=== PATIENT | female | born 1945 | race Caucasian/White ===

== ENCOUNTER 2018-11-01 14:00 | Emergency (ER) | payer OTHER ==
[2018-11-01 14:05] VITALS: BP 105/60; PULSE 77; TEMP 98.3; BMI 29.2
[2018-11-01] MEDS ORDERED: KETOROLAC TROMETHAMINE 60 MG/2 ML VIAL IM ONE (15:21)
[2018-11-01] MEDS ORDERED: KETOROLAC TROMETHAMINE 30 MG/1 ML VIAL ONE (15:23)
--- NOTE | 2018-11-01 15:27 | PDOC ---
History of Present Illness - General Chief Complaint: Back Pain Stated Complaint: BACK PAIN Time Seen by Provider: 11/01/18 15:03 History Source: Patient Exam Limitations: No Limitations - History of Present Illness Initial Comments: 11/01/18 15:22 Patient came to emergency department with complaints of pain to upper left and right back for 1-1-1/2 weeks. Denies knowledge of heavy lifting or strenuous activity, denies any recent injury or accident, denies any fever, cough, upper respiratory issue. States pain is worse with movement and is unable to perform any of her daily activities including Hooking Bra this pain in her shoulder. And , no history of cardiac issue recently. 11/01/18 15:23 Severity: reports: mild, moderate Pain Location: reports: back, neck Associated Symptoms (Fall): denies symptoms, headache Past History - Travel Traveled outside of the country in the last 30 days: No Close contact w/someone who was outside of country & ill: No - Past Medical History Allergies/Adverse Reactions: Allergies Allergy/AdvReac Type Severity Reaction Status Date / Time Penicillins Allergy Intermediate Verified 05/07/15 14:07 Home Medications: Ambulatory Orders Albuterol Sulfate [Proair Hfa -] 1 inh PO BID 05/18/14 Atenolol [Tenormin -] 50 mg PO DAILY 05/18/14 Citalopram Hydrobromide [Celexa -] 30 mg PO DAILY 05/18/14 metFORMIN HCL [Glucophage -] 1,000 mg PO BID 08/11/14 Glipizide [Glipizide ER] 5 mg PO DAILY 05/06/15 Zolpidem Tartrate [Ambien -] 10 mg PO HS 05/06/15 Naproxen [Naprosyn -] 500 mg PO BID #30 tablet 11/01/18 Anemia: No Asthma: No Cancer: No Cardiac Disorders: No CVA: No COPD: No CHF: No Dementia: No Diabetes: Yes Dialysis: Yes (PRE) GI Disorders: No Disorders: No HTN: Yes Hypercholesterolemia: Yes Liver Disease: No Seizures: No Thyroid Disease: No - Surgical History Abdominal Surgery: No 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, pre cancerous tumor inside ap) Cardiac Surgery: No Cholecystectomy: No Lung Surgery: No Neurologic Surgery: No Orthopedic Surgery: No - Family Disease History Family Disease History: Diabetes: Mother, Heart Disease: Father - Immunization History Immunization Up to Date: Yes - Suicide/Smoking/Psychosocial Hx Smoking History: Never smoked Have you smoked in the past 12 months: No If you are a former smoker, when did you quit?: 26 yrs ago Hx Alcohol Use: No Drug/Substance Use Hx: No Substance Use Type: None Hx Substance Use Treatment: No Review of Systems - Review of Systems Able to Perform ROS?: Yes Is the patient limited Occitan proficient: Yes Constitutional: Yes: Symptoms Reported, See HPI, Malaise HEENTM: Yes: See HPI. No: Symptoms Reported Respiratory: Yes: See HPI. No: Symptoms reported, Cough, Shortness of Breath Cardiac (ROS): Yes: See HPI. No: Symptoms Reported, Chest Pain, Lightheadedness , Palpitations : No: Symptoms Reported Musculoskeletal: Yes: Symptoms Reported, See HPI, Back Pain, Muscle Pain, Neck Pain Neurological: No: Symptoms reported All Other Systems: Reviewed and Negative *Physical Exam - Vital Signs Last Vital Signs Temp Pulse Resp BP Pulse Ox 98.3 F 77 20 105/60 98 11/01/18 14:03 11/01/18 14:03 11/01/18 14:03 11/01/18 14:03 11/01/18 14:03 - Physical Exam General Appearance: Yes: Nourished, Appropriately Dressed HEENT: positive: SCOT, Normal ENT Inspection, TMs Normal, Pharynx Normal Neck: positive: Supple. negative: Tender Respiratory/Chest: positive: Lungs Clear (but very dim), Normal Breath Sounds, Other (pain to upper left and right back reproduced against resistance ). negative: Chest Tender, Accessory Muscle Use, Rhonchi, Wheezing Musculoskeletal: positive: Normal Inspection, Decreased Range of Motion (with pain reproduced with abduction and forward flexion). negative: Vertebral Tenderness Extremity: positive: Normal Capillary Refill, Normal Inspection, Tender. negative: Normal Range of Motion Integumentary: positive: Dry, Warm, Pale Neurologic: positive: corporate learning consultant II-XII NML intact, Fully Oriented, Alert, Normal Mood/ Affect, Normal Response, Motor Strength 5/5 Moderate Sedation - Procedure Monitoring Vital Signs: Procedure Monitoring Vital Signs Temperature 98.3 F 11/01/18 14:03 Pulse Rate 77 11/01/18 14:03 Respiratory Rate 20 11/01/18 14:03 Blood Pressure 105/60 11/01/18 14:03 O2 Sat by Pulse Oximetry (%) 98 11/01/18 14:03 Medical Decision Making - Medical Decision Making 11/01/18 16:05 Chest x-ray shows no focal in the right lower lobe approximate 2.[address] recommended and will obtain chest X CT to rule out mass versus pneumonia. Patient updated a plan, given Toradol 30 mg for pain with some relief 11/01/18 16:06 11/01/18 18:22 report of CAT scan reveals a 2 cm spiculated right lower lobe pulmonary nodule suspicious for primary neoplastic disease. Also an interval development of pulmonary nodule within the left lower lobe. These findings were reported to patient and her niece. States will follow-up with Dr. Jacinto's office next week for further evaluation and possible treatment. Given prescription for Naprosyn for back pain and encouraged to rest over the weekend. *DC/Admit/Observation/Transfer Diagnosis at time of Disposition: Back pain Qualifiers: Back pain location: thoracic back pain Chronicity: acute Back pain laterality: bilateral Qualified Code(s): M54.6 - Pain in thoracic spine - Discharge Dispostion Disposition: HOME Condition at time of disposition: Stable Decision to Admit order: No - Referrals Referrals: Gustavo Jacinto MD [Primary Care Provider] - - Patient Instructions Printed Discharge Instructions: DI for Thoracic Back Pain Additional Instructions: Call Dr. Jacinto's office on Sunday for evaluation of a CAT scan findings Heavy lifting and strenuous activity until pain resolves A use Naprosyn one 500 mg tablet every 12 hours for pain Return to emergency department for worsened pain, shortness of breath, chest pain or other worsening of symptoms - Post Discharge Activity Forms/Work/School Notes: Back to Work
== END 2018-11-01 18:25 | disposition home or self-care (01) ==
LOC: JERFT 14:00
PROC: 3E0233Z Introduction of Anti-inflammatory into Muscle, Percutaneous Approach (ICD-10-PCS; principal; 2018-11-01)
DX: M54.6 Pain in thoracic spine (principal); I10 Essential (primary) hypertension; E11.9 Type 2 diabetes mellitus without complications; Z79.84 Long term (current) use of oral hypoglycemic drugs; E78.00 Pure hypercholesterolemia, unspecified
CPT/HCPCS: 71046-TC-FY; 71250-TC; 99281-25

== ENCOUNTER 2018-11-24 20:23 | Inpatient (IN) | payer OTHER ==
--- NOTE | 2018-11-24 21:14 | PDOC ---
Attending Attestation - HPI HPI: 11/24/18 22:28 The patient is a 73 year old with a PMH of IBS, diabetes, hemodialysis, hypertension, dyslipidemia, thyroid disease, and depression presenting with confusion. As per the sister, the patient has been confusing the days recently. Patient's sister at bedside states she had been also complaining of low back pain. Unknown if patient has been taking her meds appropriately. Patient also had a recent fall and has bruising to her left elbow and right knee. The patient denies chest pain, shortness of breath, headache and dizziness. Denies fever, chills, nausea, vomit, diarrhea and constipation. Denies dysuria, frequency, urgency and hematuria. PCP: Gustavo Jacinto - Physicial Exam PE: 11/24/18 22:30 ADULT EXAM GENERAL: Awake, alert, and fully oriented, in no acute distress (+) Unkempt. HEAD: No signs of trauma EYES: PERRLA, EOMI, sclera anicteric, conjunctiva clear ENT: Auricles normal inspection, hearing grossly normal, nares patent, oropharynx clear without exudates. (+) Dry mucous membranes. NECK: Normal ROM, supple, no lymphadenopathy, JVD, or masses LUNGS: Breath sounds equal, clear to auscultation bilaterally. No wheezes, and no crackles HEART: Regular rate and rhythm, normal S1 and S2, no murmurs, rubs or gallops ABDOMEN: Soft, nontender, normoactive bowel sounds. No guarding, no rebound. No masses EXTREMITIES: (+) Large bruise to the left elbow. (+) Large bruise to the right knee. Moving all extremities. NEUROLOGICAL: Cranial nerves II through XII grossly intact. SKIN: Warm, Dry, normal turgor. <Mine Turk - Last Filed: 11/24/18 22:28> - Resident Resident Name: Jessica Redd - ED Attending Attestation I have performed the following: I have examined & evaluated the patient, The case was reviewed & discussed with the resident - Medical Decision Making 11/24/18 23:38 Pt has an elevated WBC count. Pt has worsening GFR; MARÍA; BUN Cr are elevated. 11/24/18 23:39 Pt is getting hydrated. 11/25/18 00:58 Patient Name: SULEIMAN HASKINS THIS IS A PRELIMINARY REPORT FROM IMAGING PHYSICIAN PRESIDENT DATE OF SERVICE: 2018-11-25 00:15:00 IMAGES: 171 EXAM: HEAD CT WITHOUT CONTRAST HISTORY: Rule out bleed COMPARISON: None. FINDINGS: The ventricular system is midline and nondilated. The sulcal pattern is normal for the patient's age. Mild small vessel ischemic changes are noted. There is no bleed, mass, extra-axial fluid collection or mass effect. No skull fracture or skull lesion is identified. Minimal air-fluid level in the left maxillary sinus could represent mild sinusitis. There is a right maxillary sinus retention cyst or polyp. The other paranasal sinuses and mastoid air cells are clear. IMPRESSION: No acute intracranial pathology. Possible mild sinusitis. 11/25/18 04:10 Pt will be admitted for AMS and for further evaluation and hydration <Suzanna Cheng - Last Filed: 11/25/18 04:11> Heart Score/ECG Review - ECG Intrepretation Rhythm: Regular Rhythm - [place]: Normal - P and SD Delta Wave(s) Present: No WPW: No - QRS Poor R Wave Progression: No Q Wave Present: No - ST and T Early Repolarization: No Non Specific ST-T Wave changes: No Flattened T Waves: No Prolonged Q-T Interval: No - ECG Impressions Normal ECG: Yes Non-specific ST Elevation: No Ischemic Changes: No Bradycardia: No Torsades tashia Pointes: No WPW: No <Suzanna Cheng - Last Filed: 11/25/18 04:11>
[2018-11-24] MEDS ORDERED: ACETAMINOPHEN 1000 MG/100 ML VIAL (NON FORMULARY) IVPB ONE (21:34)
--- NOTE | 2018-11-24 21:34 | PDOC ---
History of Present Illness - General Chief Complaint: Back Pain Stated Complaint: BACK PAIN/CONFUSION Time Seen by Provider: 11/24/18 21:05 - History of Present Illness Initial Comments: 11/24/18 21:29 73 year old w/ history of IBS, diabetes, hemodialysis, hypertension, dyslipidemia, thyroid disease, and depression presents with episode of confusion as heard over the phone by family approx 2 hours ago. Family went to go visit her and she improved w/ andrea rangel just prior to arrival. Patient was complaining of worsening lower back pain. Per family they did not see facial droop or unilateral weakness Family reports that they have noticed some episodes of confusion over the past week including not knowing the day, doctor's appointment or medications. Family is concerned that the patient is not taking medication properly. Patient started a new medication on Nov 01 but does not recall what it was. Patient denies headache, chest pain, shortness of breath, N/V/D/C abdominal pain , fever, neck pain or stiffness or difficulty walking. PCP: Gustavo Jacinto NIH Stroke Scale - Last Known Well Date/Time & Onset Date Last Known Well: 11/25/18 Time Last Known Well: 18:00 - Initial Evaluation Level of consciousness: Alert Ask patient the month and their age: Answers both correctly Ask patient to open & close eyes; make fist and let go: Obeys both correctly Best gaze (horizontal eye movement): Normal Visual field testing: No visual field loss Facial paresis (Show teeth/raise eyebrows/close eyes tight): Normal symmetrical movement Motor Function: Left Arm: Normal Motor Function: Right Arm: Normal (extends arm 90 (or 45) degrees for 10 seconds without drift Motor Function: Left Leg: Normal (extends leg 30 degrees for 5 seconds without drift) Motor Function: Right Leg: Normal (extends leg 30 degrees for 5 seconds without drift) Limb Ataxia: No ataxia Sensory(Use pinprick test arms,legs,trunk,face/side to side): Normal Best language (Describe picture, name items, read sentences): No Aphasia Dysarthria (read several words): Normal articulation Extinction and Inattention: No abnormality - Total Score NIH Stroke Scale Score: 0 Past History - Past Medical History Allergies/Adverse Reactions: Allergies Allergy/AdvReac Type Severity Reaction Status Date / Time Penicillins Allergy Intermediate Verified 11/24/18 20:58 Home Medications: Ambulatory Orders Albuterol Sulfate [Proair Hfa -] 1 inh PO BID 05/18/14 Atenolol [Tenormin -] 50 mg PO DAILY 05/18/14 Citalopram Hydrobromide [Celexa -] 30 mg PO DAILY 05/18/14 metFORMIN HCL [Glucophage -] 1,000 mg PO BID 08/11/14 Glipizide [Glipizide ER] 5 mg PO DAILY 05/06/15 Zolpidem Tartrate [Ambien -] 10 mg PO HS 05/06/15 Naproxen [Naprosyn -] 500 mg PO BID #30 tablet 11/01/18 Anemia: No Asthma: No Cancer: No Cardiac Disorders: No CVA: No COPD: No CHF: No Dementia: No Diabetes: Yes Dialysis: Yes (PRE) GI Disorders: No Disorders: No HTN: Yes Hypercholesterolemia: Yes Liver Disease: No Seizures: No Thyroid Disease: No - Surgical History Abdominal Surgery: No 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, pre cancerous tumor inside ap) Cardiac Surgery: No Cholecystectomy: No Lung Surgery: No Neurologic Surgery: No Orthopedic Surgery: No - Family Disease History Family Disease History: Diabetes: Mother, Heart Disease: Father - Immunization History Immunization Up to Date: Yes - Suicide/Smoking/Psychosocial Hx Smoking History: Never smoked Have you smoked in the past 12 months: No If you are a former smoker, when did you quit?: 26 yrs ago Information on smoking cessation initiated: No Hx Alcohol Use: No Drug/Substance Use Hx: No Substance Use Type: None Hx Substance Use Treatment: No *Physical Exam - Vital Signs Last Vital Signs Temp Pulse Resp BP Pulse Ox 97.9 F 80 18 96/53 L 98 11/24/18 20:47 11/24/18 20:47 11/24/18 20:47 11/24/18 20:47 11/24/18 20:47 - Physical Exam Comments: 11/24/18 21:32 unremarkable exam msk - w/o deficit no spinal tenderness to palption Moderate Sedation - Procedure Monitoring Vital Signs: Procedure Monitoring Vital Signs Temperature 97.9 F 11/24/18 20:47 Pulse Rate 80 11/24/18 20:47 Respiratory Rate 18 11/24/18 20:47 Blood Pressure 96/53 L 11/24/18 20:47 O2 Sat by Pulse Oximetry (%) 98 11/24/18 20:47 ED Treatment Course - LABORATORY CBC & Chemistry Diagram: 11/24/18 22:15 11/24/18 22:15 - RADIOLOGY Radiology Studies Ordered: Category Date Time Status HEAD CT WITHOUT CONTRAST [CT] Stat CT Scan 11/24/18 21:23 Ordered CHEST X-RAY PORTABLE* [RAD] Stat Radiology 11/24/18 21:23 Ordered Medical Decision Making - Medical Decision Making 11/24/18 21:33 ED Course: consider polypharmacy vs diabetic shock vs uti vs pna vs intracranial bleed vs acs/arrythmia cbc, cmp, ua, ucx, cxr, head ct, fingerstick glucose in 200s EKG: normal sinus rhythm HR 82, no interval abnormalities, narrow QRS, ST and T wave segments and morphology normal. 11/24/18 23:15 wbc: 14 w/ left shift CXR: midline airway, mildly increased vascular markings at the bases bilaterally , no blunting of costophrenic angle, no cardiomegaly, as read by this clinical writer and attending. 11/25/18 00:[address] unremarkable patient w/ kevin Patient will need social work involvement in case, as patient clearly is unable to manage medications at home. Pending admission, further work up and evaluation *DC/Admit/Observation/Transfer Diagnosis at time of Disposition: Leukocytosis, Back pain, KEVIN (acute kidney injury) - Discharge Dispostion Condition at time of disposition: Stable Decision to Admit order: Yes - Referrals - Patient Instructions - Post Discharge Activity
[2018-11-24] MEDS ORDERED: SODIUM CHLORIDE 0.9% 500 ML INFUS.BAG IV ONE (21:52)
--- NOTE | 2018-11-24 21:52 | PDOC ---
Attending Attestation - Resident Resident Name: Jessica Redd - ED Attending Attestation I have performed the following: I have examined & evaluated the patient, The case was reviewed & discussed with the resident, I agree w/resident's findings & plan
[2018-11-24 22:26] LABS: BASO % 0.5 % (0-2.0); HEMATOCRIT 32.7 % (32.4-45.2); HEMOGLOBIN 10.6 GM/dL (10.7-15.3); MCH 23.8 pg (25.7-33.7); MCHC 32.4 g/dl (32.0-36.0); MEAN CELL VOLUME 73.5 fl (80-96); MEAN PLT VOLUME 8.4 fl (7.5-11.1); MONO % 6.9 % (3.8-10.2); NEUT % 83.6 % (42.8-82.8); PLATELET COUNT 296 K/MM3 (134-434); RBC 4.45 M/mm3 (3.60-5.2); RDW 19.9 % (11.6-15.6); WHITE BLOOD COUNT 14.1 K/mm3 (4.0-10.0)
[2018-11-24] MEDS ORDERED: ACETAMINOPHEN INJECTION 100 ML IVPB ONE (22:26)
[2018-11-24 23:16] LABS: ALBUMIN 3.3 g/dl (3.4-5.0); ALK PHOS 173 U/L (45-117); ANION GAP 13 MMOL/L (8-16); BILIRUBIN,TOTAL 0.8 mg/dL (0.2-1); BLOOD UREA NITROGEN 45 mg/dL (7-18); CALCIUM 10.1 mg/dL (8.5-10.1); CHLORIDE 105 mmol/L (98-107); CO2 19 mmol/L (21-32); CREATININE 2.1 mg/dL (0.55-1.3); GLUCOSE,RANDOM 274 mg/dL (74-106); POTASSIUM 5.1 mmol/L (3.5-5.1); SGOT/AST 38 U/L (15-37); SGPT/ALT 15 U/L (13-61); SODIUM 137 mmol/L (136-145); TOT PROT 7.1 g/dl (6.4-8.2)
[2018-11-24 23:59] LABS: URINE APPEARANCE CLEAR; URINE BILIRUBIN NEGATIVE (<2.0 mg/dL); URINE COLOR YELLOW; URINE GLUCOSE (UA) NEGATIVE (NEGATIVE); URINE KETONE NEGATIVE (NEGATIVE); URINE LEUK ESTERASE NEGATIVE (NEGATIVE); URINE NITRITE NEGATIVE (NEGATIVE); URINE PROTEIN 1+ (NEGATIVE); URINE UROBILINOGEN NEGATIVE mg/dL (0.2-1.0)
[2018-11-25 00:04] LABS: URINE BACTERIA RARE /hpf (NONE SEEN); URINE MUCUS RARE
[2018-11-25] MEDS ORDERED: SODIUM CHLORIDE 1,000 ML IV SCH ×2 (01:00→03:00)
--- NOTE | 2018-11-25 02:37 | HP ---
CHIEF COMPLAINT: altered mental status PCP: [facility] HISTORY OF PRESENT ILLNESS: 73yo woman dropped off at hospital by family members for confusion for past several days. Patient is a poor historian she only complains of chronic back pain. She appears disheveled and is unsure why she in hospital. No focal neuro deficits with reported. ER course was notable for: (1) head ct (2) iv fluid (3) Recent Travel: none reported PAST MEDICAL HISTORY: Appendiceal Carcinoma/Abscess Formation DM HTN PAST SURGICAL HISTORY: s/p ex-lap/right hemicolectomy/abscess drainage Social History: Smoking: no Alcohol: no Drugs: no Family History: none mentioned Allergies Penicillins Allergy (Intermediate, Verified 11/24/18 20:58) ""PAIN IN MY BODY, my body went off" HOME MEDICATIONS: Home Medications Medication Instructions Recorded Albuterol Sulfate [Proair Hfa -] 1 inh PO BID 05/18/14 Atenolol [Tenormin -] 50 mg PO DAILY 05/18/14 Citalopram Hydrobromide [Celexa -] 30 mg PO DAILY 05/18/14 metFORMIN HCL [Glucophage -] 1,000 mg PO BID 08/11/14 Glipizide [Glipizide ER] 5 mg PO DAILY 05/06/15 Zolpidem Tartrate [Ambien -] 10 mg PO HS 05/06/15 Naproxen [Naprosyn -] 500 mg PO BID #30 tablet 11/01/18 REVIEW OF SYSTEMS CONSTITUTIONAL: Absent: fever, chills, diaphoresis, generalized weakness, malaise, loss of appetite, weight change HEENT: Absent: rhinorrhea, nasal congestion, throat pain, throat swelling, difficulty swallowing, mouth swelling, ear pain, eye pain, visual changes CARDIOVASCULAR: Absent: chest pain, syncope, palpitations, irregular heart rate, lightheadedness , peripheral edema RESPIRATORY: Absent: cough, shortness of breath, dyspnea with exertion, orthopnea, wheezing, stridor, hemoptysis GASTROINTESTINAL: Absent: abdominal pain, abdominal distension, nausea, vomiting, diarrhea, constipation, melena, hematochezia GENITOURINARY: Absent: dysuria, frequency, urgency, hesitancy, hematuria, flank pain, genital pain MUSCULOSKELETAL: Absent: myalgia, arthralgia, joint swelling, neck pain present- back pain, SKIN: Absent: itching, pallor present- rash, HEMATOLOGIC/IMMUNOLOGIC: Absent: easy bleeding, easy bruising, lymphadenopathy, frequent infections ENDOCRINE: Absent: unexplained weight gain, unexplained weight loss, heat intolerance, cold intolerance NEUROLOGIC: Absent: headache, focal weakness or paresthesias, dizziness, unsteady gait, seizure, mental status changes, bladder or bowel incontinence PSYCHIATRIC: Absent: anxiety, depression, suicidal or homicidal ideation, hallucinations. PHYSICAL EXAMINATION Vital Signs - 24 hr 11/24/18 20:47 Temperature 97.9 F Pulse Rate 80 Respiratory 18 Rate Blood Pressure 96/53 L O2 Sat by Pulse 98 Oximetry (%) GENERAL: oriented to person, place, disoriented to time , disheveled HEAD: Normal with no signs of trauma. EYES: Pupils equal, round and reactive to light, extraocular movements intact, sclera anicteric, conjunctiva clear. No lid lag. EARS, NOSE, THROAT: Ears normal, nares patent, oropharynx clear without exudates. dry mucous membranes. NECK: Normal range of motion, supple without lymphadenopathy, JVD, or masses. LUNGS: Breath sounds equal, clear to auscultation bilaterally. No wheezes, and no crackles. No accessory muscle use. HEART: Regular rate and rhythm, normal S1 and S2 without murmur, rub or gallop. ABDOMEN: large midline abd scar, bs+, soft, nt MUSCULOSKELETAL: Normal range of motion at all joints. No bony deformities or tenderness. No CVA tenderness. UPPER EXTREMITIES: erythema on elbows b/l LOWER EXTREMITIES: erythema on knees NEUROLOGICAL: Cranial nerves II-XII intact. Normal speech PSYCHIATRIC: Cooperative. Good eye contact. Appropriate mood and affect. SKIN: knees and elbows b/l with abrasions vs cellulitis Laboratory Results - last 24 hr 11/24/18 11/24/18 11/24/18 22:15 22:15 23:40 WBC 14.1 H RBC 4.45 Hgb 10.6 L Hct 32.7 MCV 73.5 L MCH 23.8 L MCHC 32.4 RDW 19.9 H Plt Count 296 MPV 8.4 Absolute Neuts (auto) 11.8 H Neutrophils % 83.6 H D Lymphocytes % 9.0 D Monocytes % 6.9 Eosinophils % 0.0 D Basophils % 0.5 Nucleated RBC % 0 Sodium 137 Potassium 5.1 Chloride 105 Carbon Dioxide 19 L Anion Gap 13 BUN 45 H Creatinine 2.1 H Creat Clearance w eGFR 23.15 Random Glucose 274 H Calcium 10.1 Total Bilirubin 0.8 AST 38 H ALT 15 Alkaline Phosphatase 173 H Total Protein 7.1 Albumin 3.3 L TSH 1.13 Urine Color Yellow Urine Appearance Clear Urine pH 5.0 Ur Specific [place] 1.017 Urine Protein 1+ H Urine Glucose (UA) Negative Urine Ketones Negative Urine Blood 2+ H Urine Nitrite Negative Urine Bilirubin Negative Urine Urobilinogen Negative Ur Leukocyte Esterase Negative Urine WBC (Auto) 10 Urine RBC (Auto) 54 Urine Bacteria Rare Urine Mucus Rare imaging reviewed ASSESSMENT/PLAN: #Altered mental status -patient disheveled, uncertain etiology, differential may include uremia secondary to kevin, polypharmacy, possible hypoglycemia episodes? (patient is on glipizide). CT scan of head negative but MRI would be more sensitive to pick u any intracranial insults. May also be metabolic encephalopathy in setting of possible cellulitis of elbows and knees. -observation -tsh -vit b12 level -rpr -brain mri -neuro eval -bed rest -fall precuations -hold sedatives- zolpidem #Possible cellulitis vs abrasion of elbows and knees b/l. With presence of leukocytosis will treat for possible cellulitis -blood cultures -esr, crp -levofloaxin -vancomcyin -ID consult #KEVIN -iv fluid hydration -avoid nephrotoxins #DM -novolog sliding scale -diabetic diet #DVT ppx -heparin sc Visit type - Emergency Visit Emergency Visit: Yes Care time: The patient presented to the Emergency Department on the above date and was hospitalized for further evaluation of their emergent condition. - New Patient This patient is new to me today: Yes Date on this admission: 11/25/18 - Critical Care Critical Care patient: No
--- NOTE | 2018-11-25 02:37 | DS ---
Physical Exam: SUBJECTIVE: Patient seen and examined OBJECTIVE: Vital Signs Period Temp Pulse Resp BP Sys/Barrera Pulse Ox Last 24 Hr 97.9 F 80 18 96/53 98 PHYSICAL EXAM GENERAL: The patient is awake, alert, and fully oriented, in no acute distress. HEAD: Normal with no signs of trauma. EYES: PERRL, extraocular movements intact, sclera anicteric, conjunctiva clear. ENT: Ears normal, nares patent, oropharynx clear without exudates, moist mucous membranes. NECK: Trachea midline, full range of motion, supple. LUNGS: Breath sounds equal, clear to auscultation bilaterally, no wheezes, no crackles, no accessory muscle use. HEART: Regular rate and rhythm, S1, S2 without murmur, rub or gallop. ABDOMEN: Soft, nontender, nondistended, normoactive bowel sounds, no guarding, no rebound, no hepatosplenomegaly, no masses. EXTREMITIES: 2+ pulses, warm, well-perfused, no edema. NEUROLOGICAL: Cranial nerves II through XII grossly intact. Normal speech, gait not observed. PSYCH: Normal mood, normal affect. SKIN: Warm, dry, normal turgor, no rashes or lesions noted. LABS Laboratory Results - last 24 hr 11/24/18 11/24/18 11/24/18 22:15 22:15 23:40 WBC 14.1 H RBC 4.45 Hgb 10.6 L Hct 32.7 MCV 73.5 L MCH 23.8 L MCHC 32.4 RDW 19.9 H Plt Count 296 MPV 8.4 Absolute Neuts (auto) 11.8 H Neutrophils % 83.6 H D Lymphocytes % 9.0 D Monocytes % 6.9 Eosinophils % 0.0 D Basophils % 0.5 Nucleated RBC % 0 Sodium 137 Potassium 5.1 Chloride 105 Carbon Dioxide 19 L Anion Gap 13 BUN 45 H Creatinine 2.1 H Creat Clearance w eGFR 23.15 Random Glucose 274 H Calcium 10.1 Total Bilirubin 0.8 AST 38 H ALT 15 Alkaline Phosphatase 173 H Total Protein 7.1 Albumin 3.3 L TSH 1.13 Urine Color Yellow Urine Appearance Clear Urine pH 5.0 Ur Specific [place] 1.017 Urine Protein 1+ H Urine Glucose (UA) Negative Urine Ketones Negative Urine Blood 2+ H Urine Nitrite Negative Urine Bilirubin Negative Urine Urobilinogen Negative Ur Leukocyte Esterase Negative Urine WBC (Auto) 10 Urine RBC (Auto) 54 Urine Bacteria Rare Urine Mucus Rare HOSPITAL COURSE: Date of Admission:11/24/18 Date of Discharge: 11/25/18 Discharge Summary Reason For Visit: BACK PAIN/CONFUSION Current Active Problems MARÍA (acute kidney injury) (Acute) Back pain (Acute) Leukocytosis (Acute) Condition: Stable - Instructions - Home Medications Comprehensive Discharge Medication List: Ambulatory Orders Albuterol Sulfate [Proair Hfa -] 1 inh PO BID 05/18/14 Atenolol [Tenormin -] 50 mg PO DAILY 05/18/14 Citalopram Hydrobromide [Celexa -] 30 mg PO DAILY 05/18/14 metFORMIN HCL [Glucophage -] 1,000 mg PO BID 08/11/14 Glipizide [Glipizide ER] 5 mg PO DAILY 05/06/15 Zolpidem Tartrate [Ambien -] 10 mg PO HS 05/06/15 Naproxen [Naprosyn -] 500 mg PO BID #30 tablet 11/01/18
[2018-11-25] MEDS ORDERED: VANCOMYCIN 1 GM PREMIX - 1 GM/200 ML BAG IVPB ONE (02:55)
[2018-11-25] MEDS ORDERED: VANCOMYCIN 1 GRAM (PRE-DOCKED) 1,000 MG/250 ML BAG IVPB ONE (05:24)
[2018-11-25] MEDS ORDERED: INSULIN (NOVOLOG) ASPART 100 UNITS/ML 10ML VIAL ONE (06:38)
--- NOTE | 2018-11-25 09:49 | EKG ---
Test Reason : Blood Pressure : / mmHG Vent. Rate : 082 BPM Atrial Rate : 082 BPM P-R Int : 154 ms QRS Dur : 072 ms QT Int : 356 ms P-R-T Axes : 083 078 062 degrees QTc Int : 415 ms NORMAL SINUS RHYTHM NORMAL ECG WHEN COMPARED WITH ECG OF 18-MAY-2014 10:31, NO SIGNIFICANT CHANGE WAS FOUND Confirmed by JAYSON GOODMAN MD ([id number]) on 11/25/2018 9:48:48 AM Referred By: Confirmed By:JAYSON GOODMAN MD
[2018-11-25] MEDS: INSULIN SLIDING SCALE (NOVOLOG) 1 VIAL SQ SCH ×4 (10:03→22:37)
[2018-11-25] MEDS ORDERED: ATENOLOL 25 MG TABLET (FP) ONE (11:22)
[2018-11-25] MEDS ORDERED: HEPARIN NA (PORCINE) 5,000 UNITS/ML 1ML VIAL ONE (11:23)
[2018-11-25] MEDS: HEPARIN NA (PORCINE) 5,000 UNITS/ML 1ML VIAL SQ SCH ×2 (11:29→22:35)
[2018-11-25] MEDS: ATENOLOL 50 MG TABLET (FP) PO SCH (11:30)
--- NOTE | 2018-11-25 12:28 | PN ---
Progress Note (short form) - Note Progress Note: pt seen/examined in er . chart reviewed events noted pt alert/ awake- not confused baseline-- c/c - back pain afebrile denies cp/ sob / abd pain Vital Signs Temp 97.7 F 11/25/18 09:28 Pulse 68 11/25/18 09:28 Resp 18 11/25/18 09:28 BP 112/88 11/25/18 09:28 Pulse Ox 98 11/25/18 09:56 Intake & Output 11/24/18 11/25/18 11/25/18 23:59 11:59 23:59 Output Total 1100 Balance -1100 Weight 150 lb Output: Urine 1100 Mcneil 1100 Other: Voiding Method Indwelling Catheter Indwelling Catheter Height 5 ft 1 in Body Mass Index (BMI) 28.3 Weight Measurement Method Standing Scale Active Medications Atenolol (Tenormin -) 50 mg PO DAILY [facility] Last Admin: 11/25/18 11:30 Dose: 50 mg Heparin Sodium (Porcine) (Heparin -) 5,000 unit SQ BID NICHOLAS Last Admin: 11/25/18 11:29 Dose: 5,000 unit Levofloxacin (Levaquin 250 Mg Premixed Ivpb -) 250 mg in 50 mls @ 50 mls/hr IVPB DAILY NICHOLAS; Protocol Sodium Chloride (Normal Saline -) 1,000 mls @ 100 mls/hr IV ASDIR NICHOLAS Insulin Aspart (Novolog Vial Sliding Scale -) 1 vial SQ ACHS NICHOLAS; Protocol Last Admin: 11/25/18 12:00 Dose: Not Given Tramadol HCl (Ultram -) 50 mg PO Q8H PRN PRN Reason: PAIN LEVEL 6-10 CBC, BMP 11/24/18 22:15 11/24/18 22:15 u/c - pending. ct chest-- Lung mass Am Physical Exam. Awake/ comfortable. No distress. heent- no jvd. thyroid not enlarged. lungs- clear cvs- s1, s2 rrr abd- soft/ obese. non tender. bs + ext- no edema neuro- aox3 mcneil + A/P Ams -- resolved Acute renal failure-- fluids/ avoid nsaids/ avoid hypotension. lung mass-- Discussed in detail with Dr. Roche-- Ct scan reviewed with him-- will follow uti ?- continue abx monitor labs back pain --will order x ray Ultram for pain will follow discussed with nursing staff also Problem List - Problems (1) Lung mass Code(s): R91.8 - OTHER NONSPECIFIC ABNORMAL FINDING OF LUNG FIELD (2) Toxic metabolic encephalopathy Code(s): G92 - TOXIC ENCEPHALOPATHY (3) MARÍA (acute kidney injury) Code(s): N17.9 - ACUTE KIDNEY FAILURE, UNSPECIFIED (4) Back pain Code(s): M54.9 - DORSALGIA, UNSPECIFIED (5) Leukocytosis Code(s): D72.829 - ELEVATED WHITE BLOOD CELL COUNT, UNSPECIFIED
[2018-11-25] MEDS: SODIUM CHLORIDE 1,000 ML IV SCH (13:08)
[2018-11-25] MEDS ORDERED: traMADol HCL 50 MG TABLET ONE ×2 (13:09→17:49)
[2018-11-25] MEDS: traMADol HCL 50 MG TABLET PO PRN ×2 (13:10→22:39)
--- NOTE | 2018-11-25 15:19 | CON.PULM ---
Consult Consult Specialty:: PULMONARY Referred by:: Dr. Jacinto Reason for Consultation:: lung nodule - History of Present Illness Chief Complaint: altered mental status History of Present Illness: 73yo female with h/o HTN, DM, appendiceal carcinoma who was admitted with altered mental status x 3 days. Found to have a possible UTI and acute renal failure, started on antibiotics and IVF with improvement in mentation. Of note, she was being worked up as outpt for a 2cm RLL lung nodule. She denies any shortness of breath or chest pain. She has been experiencing a nonproductive cough per family at bedside. No fevers, chills or sweats. Denies unintentional weight loss. She is a remote smoker, started at age 19, smoked as much as 2 PPD until she quit 20 years ago. Denies family history of malignancies. - History Source History Provided By: Patient, Family Member Limitations to Obtaining History: Clinical Condition - Past Medical History Cardio/Vascular: Yes: HTN Psych: Yes: Anxiety Endocrine: Yes: Diabetes Mellitus - Alcohol/Substance Use Hx Alcohol Use: No - Smoking History Smoking history: Never smoked Have you smoked in the past 12 months: No If you are a former smoker, when did you quit?: 26 yrs ago Home Medications - Allergies Allergies/Adverse Reactions: Allergies Allergy/AdvReac Type Severity Reaction Status Date / Time Penicillins Allergy Intermediate Verified 11/24/18 20:58 - Home Medications Home Medications: Ambulatory Orders Albuterol Sulfate [Proair Hfa -] 1 inh PO BID 05/18/14 Atenolol [Tenormin -] 50 mg PO DAILY 05/18/14 Citalopram Hydrobromide [Celexa -] 30 mg PO DAILY 05/18/14 metFORMIN HCL [Glucophage -] 1,000 mg PO BID 08/11/14 Glipizide [Glipizide ER] 5 mg PO DAILY 05/06/15 Zolpidem Tartrate [Ambien -] 10 mg PO HS 05/06/15 Naproxen [Naprosyn -] 500 mg PO BID #30 tablet 11/01/18 Review of Systems - Review of Systems Constitutional: denies: Chills, Fever, Unintentional Wgt. Loss Eyes: denies: Recent Change in Vision HENT: denies: Nasal Congestion, Throat Pain Neck: denies: Stiffness, Tenderness Cardiovascular: denies: Chest Pain, Shortness of Breath Respiratory: reports: Cough Gastrointestinal: denies: Abdominal Pain, Nausea, Vomiting Genitourinary: denies: Dysuria, Hematuria Neurological: denies: Dizziness, Headache Endocrine: denies: Unexplained Weight Loss Physical Exam Vital Sings: Vital Signs Temperature 97.7 F 11/25/18 09:28 Pulse Rate 68 11/25/18 09:28 Respiratory Rate 18 11/25/18 09:28 Blood Pressure 112/88 11/25/18 09:28 O2 Sat by Pulse Oximetry (%) 98 11/25/18 09:56 Constitutional: Yes: Calm Eyes: Yes: Conjunctiva Clear, EOM Intact HENT: Yes: Atraumatic, Normocephalic Neck: Yes: Supple, Trachea Midline Cardiovascular: Yes: Regular Rate and Rhythm Respiratory: Yes: Diminished (decreased breath sounds at the bases) ...Clubbing: No Gastrointestinal: Yes: Soft. No: Tenderness Edema: No Labs: CBC, BMP 11/24/18 22:15 11/24/18 22:15 Imaging - Results Cat Scan: Report Reviewed, Image Reviewed (RLL nodule) Assessment/Plan Altered Mental Status improving UTI Acute Kidney Injury Lung Nodule suspicious for malignancy HTN DM - IV antibiotics - f/u cultures - IVF - monitor urine output, creatinine - will need CT guided needle biopsy when stable - DVT prophylaxis Thank you for this consult Cayetano Roche MD
[2018-11-25] MEDS ORDERED: traMADol HCL 50 MG TABLET PO ONE (17:45)
--- NOTE | 2018-11-25 18:35 | PN ---
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 but stopped two weeks before michelle and hasn't been back she came to the ER 11/01 for back pain and was found to have a lung mass her sister went to her house and found it was a mess, dirty with dishes in the sink , water on the floor and pills scattered everywher she is now alert but still very vague about her complaints which include back pain no fevers elevated wbc, elevated creatinine unknown penicillin allergy suggest possible uti continue levaquin for now, can d/c if cultures negative maría renal/bladder sonogram IVF check cpk back pain consider imaging of her back lung mass- will need biopsy Problem List - Problems (1) Leukocytosis Code(s): D72.829 - ELEVATED WHITE BLOOD CELL COUNT, UNSPECIFIED (2) MARÍA (acute kidney injury) Code(s): N17.9 - ACUTE KIDNEY FAILURE, UNSPECIFIED (3) Back pain Code(s): M54.9 - DORSALGIA, UNSPECIFIED (4) Lung mass Code(s): R91.8 - OTHER NONSPECIFIC ABNORMAL FINDING OF LUNG FIELD (5) Penicillin allergy Code(s): Z88.0 - ALLERGY STATUS TO PENICILLIN
--- NOTE | 2018-11-25 19:16 | CONS ---
INFECTIOUS DISEASE CONSULTATION DATE OF CONSULTATION: 11/25/2018 REQUESTING PHYSICIAN: Gustavo Jacinto MD This is a 73-year-old woman admitted from her apartment. She lives in a senior building. She lives alone, with leukocytosis, confusion, and dehydration. She was brought to the ER by her sister who felt her texts were getting confusing. The patient reports back pain for the last several weeks. It started before Miley. 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 She came to the ER on the for back pain and was found to have a lung mass. She had not yet had any followup for the lung mass and when her sister was attempting to communicate to her about this, she felt that she was very confused and came to see her from [place]. When she arrived, she found the apartment was a mess. It was dirty with dishes in the sink that were unwashed, water on the floor, and pills scattered everywhere. She came to the emergency room and was evaluated. She was noted to have bruises on her elbows and knees. She is now alert but still very vague about her complaints which include back pain. She is oriented to person, place, and year. She has no fevers. She is noted to have elevated white count and an elevated creatinine. PAST MEDICAL HISTORY: Noted for history of hypertension, anxiety, and diabetes. She has a history as well of abdominal surgery. 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 Her sister found bottles at home that included naproxen, aspirin, Flexeril, and Ambien as well as Mobic. She did not find any metformin in the house, which is what she thought her sister was taking for her diabetes. ALLERGIES: She is allergic to PENICILLIN. The nature of the allergy is not known. SOCIAL HISTORY: She lives alone in an adult apartment. She is single. She has a pet cat. There is no history of any recent travel. She is a former smoker. REVIEW OF SYSTEMS: She denies anything except the back pain. She denies dysuria, diarrhea, nausea, vomiting, or cough. Her sister is not sure if she has eaten recently. PHYSICAL EXAMINATION: Vital Signs: She is afebrile, temperature is 98.3; pulse of 67; blood pressure 148/61. Respiratory rate is 18. She is saturating 97% on room air. HEENT: She is normocephalic. Her eyes are anicteric. She has dry oral mucosa. Neck: Supple. There are no meningeal signs. Lungs: Clear to auscultation. Heart: Regular rate and rhythm. Abdomen: Soft, nontender. She has a well-healed abdominal scar from her surgery, midline. Extremities: Without edema. Skin: She has bruises on both her knees as well as both her elbows. LABORATORY DATA: Her labs are notable for a white count of 14.1, hemoglobin 10.6, platelets of 296. Her BUN is 45 and creatinine 2.1, with alkaline phosphatase of 173. Urinalysis has 10 white cells, and urine and blood cultures are pending. She had a CT and a MRI of her brain that are normal. Lumbosacral films have been ordered and are pending. She had a chest x-ray done in the ER, that was unremarkable, but a recent CAT scan that revealed a right lung base mass. In summary, this is a 73-year-old woman admitted with leukocytosis, acute kidney injury, possible UTI. Would suggest continue Levaquin for now, can stop if cultures are negative. Renal/bladder sonogram, IV fluids. Consider imaging of her back, which has been ordered, and regarding her lung mass, she will need further biopsy. I spoke at length with her sister and [id number] who are at the bedside. JAMIE BEARDEN M.D. [id number]
--- NOTE | 2018-11-25 20:54 | CONSULT ---
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 Her sister checks in on her. She [facility] [employer] until about 3 weeks ago. 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 Meds at home may have included: Albuterol, atenolol, metformin, glypizide, citalopram and tramadol for pain. Pt notes 2-3 mos of progressive pain, shaking and deterioration of gait. The pain is in the torso and arms, "moves around" and interrupts sleep. She also complains of upper back pain that radiates sharply into the right scapula. Now admitted after at least a few days of increasing confusing and failure to thrive. Her sister found pt and her apartment extremely unkempt. On admission had WBC=14.1 K and urinary WBC=10. Given vancomicin. Now on levaquin. Gwz=155 mg%. Cr/BUN=2.1/45. CXRay- R LL mass CT of head (reviewed): Moderate atrophy. MRI of Brain (reviewed): Atrophy. Right basal ganglia lacune. Diffuse subcortical and periventricular microvascular changes. ARJUN: Obese. Unkempt. Ecchymoses over both knees and elbows. + Thoracic palpation tenderness. NEURO: Mod OMS. O x [facility]. Nov, 2018. David. Recalls 1 of 3 at 3 mins. + Glabella. Fluent speech. Circumlocution. CN II-XII: Full zimmerman and EOM's. Rhythmic jaw tremor. No facial Gag OK Motor: No drift. + Rest tremor Left hand and foot. Normal strength. + Cogwheel rigidity. Normal reflexes except absent AJ's. Plantars silent. Coord: No FTN dystaxia. Sensory: Sl decreased vib in toes. Gait: Shuffling, festinating. IMP: 1. Mild-moderate, B/L cerebral dysfunction (OMS). 2. Parkinsonism, probably Parkinson's disease. 3. R/O Thoracic spine pathology- possibly metastasis or vertebral collapse. 4. 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 Worsening due to Toxic-metabolic encephaloapthy (consider infection, hypothyroidism/myxedema). SUGGEST: Continue antibiotics and hydration Check B12, TSH, RPR, ESR, CRP Thoracic X Rays/ bone scan Give parenteral thiamine (250 mg IVPB TID x 3 days) D/C tramadol. Try pramipexole 0.25 mg BID after breakfast and dinner. Mobilize OOBed to chair for meals and bedside PT. Thank you very much, Chance Roman MD
[2018-11-25] MEDS: THIAMINE HCL 200 MG/2 ML VIAL IVPB SCH (22:38)
[2018-11-25] MEDS: PRAMIPEXOLE DIHYDROCHLORIDE 0.25 MG TABLET PO SCH (22:38)
[2018-11-26 01:23] VITALS: BMI 29.6
[2018-11-26] MEDS: SODIUM CHLORIDE 1,000 ML IV SCH ×2 (05:45→18:52)
[2018-11-26] MEDS: THIAMINE HCL 200 MG/2 ML VIAL IVPB SCH ×3 (05:45→21:41)
[2018-11-26] MEDS: INSULIN SLIDING SCALE (NOVOLOG) 1 VIAL SQ SCH ×4 (06:44→21:40)
[2018-11-26] MEDS: PRAMIPEXOLE DIHYDROCHLORIDE 0.25 MG TABLET PO SCH ×3 (06:44→21:41)
[2018-11-26] MEDS: traMADol HCL 50 MG TABLET PO PRN (06:55)
[2018-11-26 07:55] LABS: BASO % 0.3 % (0-2.0); EOS % 0.7 % (0-4.5); HEMATOCRIT 27.5 % (32.4-45.2); LYMPH % 19.7 % (8-40); MCHC 32.7 g/dl (32.0-36.0); MEAN CELL VOLUME 73.4 fl (80-96); MEAN PLT VOLUME 8.2 fl (7.5-11.1); MONO % 9.6 % (3.8-10.2); NEUT % 69.7 % (42.8-82.8); PLATELET COUNT 227 K/MM3 (134-434); RBC 3.74 M/mm3 (3.60-5.2); RDW 19.9 % (11.6-15.6); WHITE BLOOD COUNT 8.2 K/mm3 (4.0-10.0)
[2018-11-26 08:48] LABS: ALBUMIN 2.6 g/dl (3.4-5.0); ALK PHOS 139 U/L (45-117); ANION GAP 10 MMOL/L (8-16); BILIRUBIN,TOTAL 0.4 mg/dL (0.2-1); BLOOD UREA NITROGEN 29 mg/dL (7-18); CALCIUM 9.1 mg/dL (8.5-10.1); CHLORIDE 111 mmol/L (98-107); CO2 20 mmol/L (21-32); CREATININE 1.4 mg/dL (0.55-1.3); GLUCOSE,RANDOM 119 mg/dL (74-106); POTASSIUM 4.7 mmol/L (3.5-5.1); SGOT/AST 30 U/L (15-37); SGPT/ALT 16 U/L (13-61); SODIUM 141 mmol/L (136-145)
--- NOTE | 2018-11-26 09:41 | PN ---
Progress Note (short form) - Note Progress Note: events noted pt alert/ awake- not confused baseline-- c/c - back pain, side pain anxious afebrile denies cp/ sob / abd pain Vital Signs - 24 hr 11/25/18 11/25/18 11/25/18 09:56 18:00 22:28 Temperature 98.3 F 98.2 F Pulse Rate 63 Pulse Rate [ 67 Left Radial] Respiratory 18 20 Rate Blood Pressure 129/57 L Blood Pressure 148/61 [Left Arm] O2 Sat by Pulse 98 97 Oximetry (%) 11/26/18 11/26/18 01:29 06:00 Temperature 98.0 F Pulse Rate 59 L Pulse Rate [ Left Radial] Respiratory 20 20 Rate Blood Pressure 137/67 Blood Pressure [Left Arm] O2 Sat by Pulse 95 95 Oximetry (%) Current Medications Generic Name Dose Route Start Last Admin Trade Name Freq PRN Reason Stop Dose Admin Atenolol 50 mg 11/25/18 10:00 11/25/18 11:30 Tenormin - PO 50 mg DAILY NICHOLAS Administration Heparin Sodium (Porcine) 5,000 unit 11/25/18 10:00 11/25/18 22:35 Heparin - SQ Not Given BID NICHOLAS Levofloxacin 250 mg in 50 mls @ 50 mls/hr 11/26/18 10:00 Levaquin 250 Mg Premixed Ivpb - IVPB DAILY [facility] Protocol Sodium Chloride 1,000 mls @ 100 mls/hr 11/25/18 12:27 11/26/18 05:45 Normal Saline - IV 100 mls/hr ASDIR NICHOLAS Administration Insulin Aspart 1 vial 11/25/18 07:00 11/26/18 06:44 Novolog Vial Sliding Scale - SQ Not Given ACHS [facility] Protocol Pramipexole Dihydrochloride 0.25 mg 11/25/18 22:00 11/26/18 06:44 Mirapex - PO 0.25 mg TID NICHOLAS Administration Thiamine HCl 200 mg 11/25/18 22:00 11/26/18 05:45 Vitamin B1 Injection - IVPB 11/28/18 22:00 200 mg TID NICHOLAS Administration Tramadol HCl 50 mg 11/25/18 12:24 11/26/18 06:55 Ultram - PO 50 mg Q8H PRN Administration PAIN LEVEL 6-10 Laboratory Results - last 24 hr 11/25/18 11/25/18 11/25/18 11:46 12:29 12:29 WBC RBC Hgb Hct MCV MCH MCHC RDW Plt Count MPV Absolute Neuts (auto) Neutrophils % Lymphocytes % Monocytes % Eosinophils % Basophils % Nucleated RBC % ESR Sodium Potassium Chloride Carbon Dioxide Anion Gap BUN Creatinine Creat Clearance w eGFR POC Glucometer 98.56468 Random Glucose Hemoglobin A1c % Calcium Total Bilirubin AST ALT Alkaline Phosphatase Creatine Kinase Creatine Kinase Index CK-MB (CK-2) C-Reactive Protein Total Protein Albumin Vitamin B12 859 TSH 1.19 RPR Titer Nonreactive 11/25/18 11/25/18 11/25/18 12:29 12:29 16:39 WBC RBC Hgb Hct MCV MCH MCHC RDW Plt Count MPV Absolute Neuts (auto) Neutrophils % Lymphocytes % Monocytes % Eosinophils % Basophils % Nucleated RBC % ESR 45 H Sodium Potassium Chloride Carbon Dioxide Anion Gap BUN Creatinine Creat Clearance w eGFR POC Glucometer 131.28975 Random Glucose Hemoglobin A1c % Calcium Total Bilirubin AST ALT Alkaline Phosphatase Creatine Kinase Creatine Kinase Index CK-MB (CK-2) C-Reactive Protein 11.1 H Total Protein Albumin Vitamin B12 TSH RPR Titer 11/25/18 11/26/18 11/26/18 22:36 06:00 06:00 WBC 8.2 RBC 3.74 Hgb 9.0 L Hct 27.5 L D MCV 73.4 L MCH 24.0 L MCHC 32.7 RDW 19.9 H Plt Count 227 D MPV 8.2 Absolute Neuts (auto) 5.7 Neutrophils % 69.7 Lymphocytes % 19.7 D Monocytes % 9.6 Eosinophils % 0.7 D Basophils % 0.3 Nucleated RBC % 0 ESR Sodium 141 Potassium 4.7 Chloride 111 H Carbon Dioxide 20 L Anion Gap 10 BUN 29 H Creatinine 1.4 H Creat Clearance w eGFR 36.96 POC Glucometer 202 Random Glucose 119 H Hemoglobin A1c % Calcium 9.1 Total Bilirubin 0.4 AST 30 ALT 16 Alkaline Phosphatase 139 H Creatine Kinase Creatine Kinase Index CK-MB (CK-2) C-Reactive Protein Total Protein 6.0 L Albumin 2.6 L Vitamin B12 TSH 1.30 RPR Titer 11/26/18 11/26/18 11/26/18 06:00 06:00 06:00 WBC RBC Hgb Hct MCV MCH MCHC RDW Plt Count MPV Absolute Neuts (auto) Neutrophils % Lymphocytes % Monocytes % Eosinophils % Basophils % Nucleated RBC % ESR Sodium Potassium Chloride Carbon Dioxide Anion Gap BUN Creatinine Creat Clearance w eGFR POC Glucometer Random Glucose Hemoglobin A1c % 10.5 H Calcium Total Bilirubin AST ALT Alkaline Phosphatase Creatine Kinase 233 H Creatine Kinase Index 3.1 CK-MB (CK-2) 7.4 H C-Reactive Protein Total Protein Albumin Vitamin B12 818 TSH RPR Titer 11/26/18 06:43 WBC RBC Hgb Hct MCV MCH MCHC RDW Plt Count MPV Absolute Neuts (auto) Neutrophils % Lymphocytes % Monocytes % Eosinophils % Basophils % Nucleated RBC % ESR Sodium Potassium Chloride Carbon Dioxide Anion Gap BUN Creatinine Creat Clearance w eGFR POC Glucometer 134 Random Glucose Hemoglobin A1c % Calcium Total Bilirubin AST ALT Alkaline Phosphatase Creatine Kinase Creatine Kinase Index CK-MB (CK-2) C-Reactive Protein Total Protein Albumin Vitamin B12 TSH RPR Titer Physical Exam. Awake/ comfortable. No distress. heent- no jvd. thyroid not enlarged. lungs- clear cvs- s1, s2 rrr abd- soft/ obese. non tender. bs + ext- no edema neuro- aox3 mcneil + A/P Acute renal failure-- fluids/ avoid nsaids/ avoid hypotension.- improving lung mass--Pulmonary eval noted will need CT guided biopsy uti ?- continue abx, ID eval noted- cultures pending monitor labs back pain --xray done renal sono negative Add Thiamine Problem List - Problems (1) MARÍA (acute kidney injury) Code(s): N17.9 - ACUTE KIDNEY FAILURE, UNSPECIFIED (2) Back pain Code(s): M54.9 - DORSALGIA, UNSPECIFIED (3) Leukocytosis Code(s): D72.829 - ELEVATED WHITE BLOOD CELL COUNT, UNSPECIFIED (4) Lung mass Code(s): R91.8 - OTHER NONSPECIFIC ABNORMAL FINDING OF LUNG FIELD (5) Toxic metabolic encephalopathy Code(s): G92 - TOXIC ENCEPHALOPATHY (6) Acute renal insufficiency Code(s): N28.9 - DISORDER OF KIDNEY AND URETER, UNSPECIFIED
[2018-11-26] MEDS: HEPARIN NA (PORCINE) 5,000 UNITS/ML 1ML VIAL SQ SCH ×2 (09:53→21:41)
[2018-11-26] MEDS: ATENOLOL 50 MG TABLET (FP) PO SCH (09:53)
[2018-11-26 11:09] LABS: ANISOCYTOSIS 1+; MACROCYTOSIS 0; PLATELET ESTIMATE NORMAL
--- NOTE | 2018-11-26 12:46 | PN ---
Progress Note (short form) - Note Progress Note: PULMONARY Denies shortness of breath, cough or wheezing. Still with generalized pain. Vital Signs Period Temp Pulse Resp BP Sys/Barrera Pulse Ox Last 24 Hr 97.8 F-98.3 F 59-67 18-22 129-148/57-71 95-97 Gen: NAD at rest Heart: RRR Lung: decreased breath sounds at the bases Abd: soft, nontender Ext: no edema CBC, BMP 11/26/18 06:00 11/26/18 06:00 Active Medications Atenolol (Tenormin -) 50 mg PO DAILY [facility] Last Admin: 11/26/18 09:53 Dose: 50 mg Heparin Sodium (Porcine) (Heparin -) 5,000 unit SQ BID NICHOLAS Last Admin: 11/26/18 09:53 Dose: 5,000 unit Levofloxacin (Levaquin 250 Mg Premixed Ivpb -) 250 mg in 50 mls @ 50 mls/hr IVPB DAILY [facility]; Protocol Last Admin: 11/26/18 09:52 Dose: 50 mls/hr Sodium Chloride (Normal Saline -) 1,000 mls @ 100 mls/hr IV ASDIR [facility] Last Admin: 11/26/18 05:45 Dose: 100 mls/hr Insulin Aspart (Novolog Vial Sliding Scale -) 1 vial SQ ACHS [facility]; Protocol Last Admin: 11/26/18 12:00 Dose: 2 units Pramipexole Dihydrochloride (Mirapex -) 0.25 mg PO TID [facility] Last Admin: 11/26/18 06:44 Dose: 0.25 mg Thiamine HCl (Vitamin B1 Injection -) 200 mg IVPB TID [facility] Stop: 11/28/18 22:00 Last Admin: 11/26/18 05:45 Dose: 200 mg Tramadol HCl (Ultram -) 50 mg PO Q8H PRN PRN Reason: PAIN LEVEL 6-10 Last Admin: 11/26/18 06:55 Dose: 50 mg A/P Altered Mental Status improving r/o UTI Acute Kidney Injury Lung Nodule suspicious for malignancy HTN DM - continue antibiotics - f/u cultures - IVF - monitor urine output, creatinine - will need CT guided needle biopsy when stable - DVT prophylaxis
[2018-11-26] MEDS ORDERED: PT OWN MED DRAWER 7, Y5N ONE ×2 (14:11→21:07)
[2018-11-26] MEDS ORDERED: traMADol HCL 50 MG TABLET PO ONE (14:15)
--- NOTE | 2018-11-26 21:00 | PN ---
Progress Note (short form) - Note Progress Note: NEUROLOGY PROGRESS: Events reviewed. Patient examined. Continues on antibiotics for UTI. 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 Pt notes moderate reduction in pain and marked improvement in sleep on Pramipexole 0.25 mg TID. Tolerating well. Hasn't been OO Bed today. EXAM: Awake, alert. O x 3. Recalls 2 of 3 at 3 mins. No tremor. Reduced cogwheel rigidity. Improving echymoses. Gait is sl wide-based and shuffling but clearly improved from yesterday. In diaper. IMP: Mild OMS Parkinson's disease. PD-related RLS Toxic-metabolic encephalopathy. SUGGEST: Continue antibiotics OO Bed to chair TID for meals PT for gait with walker. Continue pramipexole 0.25 mg TID for tomorrow then increase to 0.5 mg TID. Neuro f/u as out patient. Thank you very much, Chance Roman MD
--- NOTE | 2018-11-26 21:06 | PN ---
Progress Note, Physician History of Present Illness: AWAKE, ALERT C/O R BACK PAIN NO C/O DYSURIA NO F/C AFEBRILE WBC WNL C/S NO GROWTH - Current Medication List Current Medications: Active Medications Albuterol Sulfate (Ventolin 0.083% Nebulizer Soln -) 1 amp NEB Q6H PRN PRN Reason: SHORT OF BREATH/WHEEZING Atenolol (Tenormin -) 50 mg PO DAILY [facility] Last Admin: 11/26/18 09:53 Dose: 50 mg Heparin Sodium (Porcine) (Heparin -) 5,000 unit SQ BID NICHOLAS Last Admin: 11/26/18 09:53 Dose: 5,000 unit Levofloxacin (Levaquin 250 Mg Premixed Ivpb -) 250 mg in 50 mls @ 50 mls/hr IVPB DAILY [facility]; Protocol Last Admin: 11/26/18 09:52 Dose: 50 mls/hr Sodium Chloride (Normal Saline -) 1,000 mls @ 100 mls/hr IV ASDIR [facility] Last Admin: 11/26/18 18:52 Dose: 100 mls/hr Insulin Aspart (Novolog Vial Sliding Scale -) 1 vial SQ ACHS [facility]; Protocol Last Admin: 11/26/18 16:46 Dose: Not Given Pramipexole Dihydrochloride (Mirapex -) 0.25 mg PO TID [facility] Last Admin: 11/26/18 14:20 Dose: 0.25 mg Thiamine HCl (Vitamin B1 Injection -) 200 mg IVPB TID [facility] Stop: 11/28/18 22:00 Last Admin: 11/26/18 14:30 Dose: 200 mg Tramadol HCl (Ultram -) 50 mg PO Q8H PRN PRN Reason: PAIN LEVEL 6-10 Last Admin: 11/26/18 06:55 Dose: 50 mg - Objective Vital Signs: Vital Signs Temperature 97.6 F 11/26/18 15:03 Pulse Rate 63 11/26/18 15:03 Respiratory Rate 20 11/26/18 15:03 Blood Pressure 126/70 11/26/18 15:03 O2 Sat by Pulse Oximetry (%) 95 11/26/18 11:17 Constitutional: Yes: No Distress Cardiovascular: Yes: Regular Rate and Rhythm, S1, S2 Respiratory: Yes: CTA Bilaterally Gastrointestinal: Yes: Normal Bowel Sounds, Soft Labs: CBC, BMP 11/26/18 06:00 01/15/19 06:00 Assessment/Plan LEUKOCYTOSIS RESOLVED AFEBRILE WBC WNL C/S NEGATIVE D/C ANTIBIOTICS
[2018-11-27] MEDS: SODIUM CHLORIDE 1,000 ML IV SCH ×2 (01:45→15:11)
[2018-11-27] MEDS: traMADol HCL 50 MG TABLET PO PRN ×3 (02:11→21:44)
[2018-11-27] MEDS: PRAMIPEXOLE DIHYDROCHLORIDE 0.25 MG TABLET PO SCH ×3 (06:30→21:41)
[2018-11-27] MEDS: THIAMINE HCL 200 MG/2 ML VIAL IVPB SCH ×3 (06:30→21:42)
[2018-11-27] MEDS: INSULIN SLIDING SCALE (NOVOLOG) 1 VIAL SQ SCH ×4 (06:31→21:42)
[2018-11-27 07:10] LABS: BASO % 0.6 % (0-2.0); EOS % 1.1 % (0-4.5); HEMATOCRIT 29.5 % (32.4-45.2); HEMOGLOBIN 9.4 GM/dL (10.7-15.3); LYMPH % 21.3 % (8-40); MCH 23.7 pg (25.7-33.7); MCHC 31.8 g/dl (32.0-36.0); MEAN CELL VOLUME 74.6 fl (80-96); MEAN PLT VOLUME 8.5 fl (7.5-11.1); MONO % 9.7 % (3.8-10.2); NEUT % 67.3 % (42.8-82.8); PLATELET COUNT 215 K/MM3 (134-434); RBC 3.96 M/mm3 (3.60-5.2); WHITE BLOOD COUNT 8.8 K/mm3 (4.0-10.0)
[2018-11-27 08:01] LABS: ALBUMIN 2.6 g/dl (3.4-5.0); ALK PHOS 163 U/L (45-117); ANION GAP 7 MMOL/L (8-16); BILIRUBIN,TOTAL 0.3 mg/dL (0.2-1); BLOOD UREA NITROGEN 21 mg/dL (7-18); CALCIUM 9.8 mg/dL (8.5-10.1); CHLORIDE 111 mmol/L (98-107); CO2 22 mmol/L (21-32); CREATININE 1.3 mg/dL (0.55-1.3); GLUCOSE,RANDOM 141 mg/dL (74-106); POTASSIUM 4.6 mmol/L (3.5-5.1); SGOT/AST 31 U/L (15-37); SGPT/ALT 15 U/L (13-61); SODIUM 139 mmol/L (136-145); TOT PROT 6.3 g/dl (6.4-8.2)
[2018-11-27] MEDS: HEPARIN NA (PORCINE) 5,000 UNITS/ML 1ML VIAL SQ SCH ×2 (10:01→21:41)
[2018-11-27] MEDS: ATENOLOL 50 MG TABLET (FP) PO SCH (10:01)
[2018-11-27 11:15] LABS: ANISOCYTOSIS 1+; MACROCYTOSIS 0; PLATELET ESTIMATE NORMAL
[2018-11-27] MEDS ORDERED: INSULIN (NOVOLOG) ASPART 100 UNITS/ML 10ML VIAL ONE (11:15)
--- NOTE | 2018-11-27 11:46 | PN ---
Progress Note (short form) - Note Progress Note: events noted pt alert/ awake- not confused baseline-- c/c - rt sided ribs pain anxious afebrile denies cp/ sob / abd pain Vital Signs - 24 hr 11/26/18 11/26/18 11/26/18 15:03 18:33 19:00 Temperature 97.6 F 97.9 F Pulse Rate 63 68 Respiratory 20 18 18 Rate Blood Pressure 126/70 142/78 O2 Sat by Pulse 95 Oximetry (%) 11/26/18 11/27/18 11/27/18 22:00 02:00 03:00 Temperature 98.4 F 98.7 F Pulse Rate 64 58 L Respiratory 18 18 18 Rate Blood Pressure 143/75 134/56 L O2 Sat by Pulse 95 Oximetry (%) 11/27/18 11/27/18 06:00 10:00 Temperature 98.1 F 98.0 F Pulse Rate 59 L 63 Respiratory 18 22 H Rate Blood Pressure 139/60 130/67 O2 Sat by Pulse Oximetry (%) Current Medications Generic Name Dose Route Start Last Admin Trade Name Freq PRN Reason Stop Dose Admin Albuterol Sulfate 1 amp 11/26/18 19:32 Ventolin 0.083% Nebulizer Soln - NEB Q6H PRN SHORT OF BREATH/WHEEZING Atenolol 50 mg 11/25/18 10:00 11/27/18 10:01 Tenormin - PO 50 mg DAILY NICHOLAS Administration Heparin Sodium (Porcine) 5,000 unit 11/25/18 10:00 11/27/18 10:01 Heparin - SQ 5,000 unit BID NICHOLAS Administration Sodium Chloride 1,000 mls @ 100 mls/hr 11/25/18 12:27 11/27/18 01:45 Normal Saline - IV 100 mls/hr ASDIR NICHOLAS Administration Insulin Aspart 1 vial 11/25/18 07:00 11/27/18 11:16 Novolog Vial Sliding Scale - SQ 4 units ACHS NICHOLAS Administration Protocol Pramipexole Dihydrochloride 0.25 mg 11/25/18 22:00 11/27/18 06:30 Mirapex - PO 0.25 mg TID NICHOLAS Administration Thiamine HCl 200 mg 11/25/18 22:00 11/27/18 06:30 Vitamin B1 Injection - IVPB 11/28/18 22:00 200 mg TID NICHOLAS Administration Tramadol HCl 50 mg 11/25/18 12:24 11/27/18 11:10 Ultram - PO 50 mg Q8H PRN Administration PAIN LEVEL 6-10 Laboratory Results - last 24 hr 11/27/18 11/27/18 06:15 06:15 WBC 8.8 RBC 3.96 Hgb 9.4 L Hct 29.5 L MCV 74.6 L MCH 23.7 L MCHC 31.8 L RDW 20.0 H Plt Count 215 MPV 8.5 Absolute Neuts (auto) 5.9 Neutrophils % 67.3 Lymphocytes % 21.3 Monocytes % 9.7 Eosinophils % 1.1 Basophils % 0.6 Nucleated RBC % 0 Sodium 139 Potassium 4.6 Chloride 111 H Carbon Dioxide 22 Anion Gap 7 L BUN 21 H Creatinine 1.3 Creat Clearance w eGFR 40.26 Random Glucose 141 H Calcium 9.8 Total Bilirubin 0.3 AST 31 ALT 15 Alkaline Phosphatase 163 H Total Protein 6.3 L Albumin 2.6 L Physical Exam. Awake/ comfortable. No distress. heent- no jvd. thyroid not enlarged. lungs- clear cvs- s1, s2 rrr abd- soft/ obese. non tender. bs + ext- no edema neuro- aox3 mcneil + A/P Acute renal failure-- fluids/ avoid nsaids/ avoid hypotension.- improving lung mass--Pulmonary eval noted will need CT guided biopsy antibiotics dc renal failure improving OOB check ribs series xray thoracic spine xray---no fractures monitor labs Problem List - Problems (1) MARÍA (acute kidney injury) Code(s): N17.9 - ACUTE KIDNEY FAILURE, UNSPECIFIED (2) Back pain Code(s): M54.9 - DORSALGIA, UNSPECIFIED (3) Leukocytosis Code(s): D72.829 - ELEVATED WHITE BLOOD CELL COUNT, UNSPECIFIED (4) Lung mass Code(s): R91.8 - OTHER NONSPECIFIC ABNORMAL FINDING OF LUNG FIELD (5) Toxic metabolic encephalopathy Code(s): G92 - TOXIC ENCEPHALOPATHY (6) Acute renal insufficiency Code(s): N28.9 - DISORDER OF KIDNEY AND URETER, UNSPECIFIED
--- NOTE | 2018-11-27 12:21 | PN ---
Progress Note (short form) - Note Progress Note: As per Interventional radiology-- pt should have a PET ct first prior to biopsy -- will do as outpt Problem List - Problems (1) MARÍA (acute kidney injury) Code(s): N17.9 - ACUTE KIDNEY FAILURE, UNSPECIFIED (2) Back pain Code(s): M54.9 - DORSALGIA, UNSPECIFIED (3) Leukocytosis Code(s): D72.829 - ELEVATED WHITE BLOOD CELL COUNT, UNSPECIFIED (4) Lung mass Code(s): R91.8 - OTHER NONSPECIFIC ABNORMAL FINDING OF LUNG FIELD (5) Toxic metabolic encephalopathy Code(s): G92 - TOXIC ENCEPHALOPATHY (6) Acute renal insufficiency Code(s): N28.9 - DISORDER OF KIDNEY AND URETER, UNSPECIFIED
[2018-11-27] MEDS: ALBUTEROL SO4 0.083% IH SOL 2.5 MG/3 ML VIAL.NEB. NEB PRN (12:38)
[2018-11-27] MEDS ORDERED: PNEUMOC 13-VAL CONJ-DIP CRM/PF 0.5 ML DISP.SYRIN IM ONE (13:03)
[2018-11-27 13:25] LABS: INR 1.19 (0.83-1.09); PROTHROMBIN TIME (PATIENT) 14.1 SEC (9.7-13.0)
[2018-11-27] MEDS ORDERED: PT OWN MED DRAWER 7, Y5N ONE (14:42)
[2018-11-28] MEDS: ALBUTEROL SO4 0.083% IH SOL 2.5 MG/3 ML VIAL.NEB. NEB PRN ×3 (01:10→20:06)
[2018-11-28] MEDS: SODIUM CHLORIDE 1,000 ML IV SCH ×2 (02:07→14:09)
[2018-11-28] MEDS: traMADol HCL 50 MG TABLET PO PRN (06:51)
[2018-11-28] MEDS: PRAMIPEXOLE DIHYDROCHLORIDE 0.25 MG TABLET PO SCH (06:51)
[2018-11-28] MEDS: THIAMINE HCL 200 MG/2 ML VIAL IVPB SCH ×3 (06:51→22:29)
[2018-11-28] MEDS: INSULIN SLIDING SCALE (NOVOLOG) 1 VIAL SQ SCH ×4 (06:52→22:28)
[2018-11-28] MEDS: ATENOLOL 50 MG TABLET (FP) PO SCH (10:34)
[2018-11-28] MEDS: HEPARIN NA (PORCINE) 5,000 UNITS/ML 1ML VIAL SQ SCH ×2 (10:34→22:30)
[2018-11-28] MEDS ORDERED: INSULIN (NOVOLOG) ASPART 100 UNITS/ML 10ML VIAL ONE (11:43)
--- NOTE | 2018-11-28 11:51 | PN ---
Progress Note (short form) - Note Progress Note: PULMONARY Denies shortness of breath, cough or wheezing. Rib series showing 2 nondisplaced right rib fractures. Vital Signs Period Temp Pulse Resp BP Sys/Barrera Pulse Ox Last 24 Hr 97.8 F-98.6 F 58-67 20-20 130-153/59-77 94 Gen: NAD at rest Heart: RRR Lung: decreased breath sounds at the bases Abd: soft, nontender Ext: no edema CBC, BMP 11/27/18 06:15 11/27/18 06:15 Active Medications Albuterol Sulfate (Ventolin 0.083% Nebulizer Soln -) 1 amp NEB Q6H PRN PRN Reason: SHORT OF BREATH/WHEEZING Last Admin: 11/28/18 01:10 Dose: 1 amp Atenolol (Tenormin -) 50 mg PO DAILY [facility] Last Admin: 11/28/18 10:34 Dose: 50 mg Heparin Sodium (Porcine) (Heparin -) 5,000 unit SQ BID [facility] Last Admin: 11/28/18 10:34 Dose: 5,000 unit Sodium Chloride (Normal Saline -) 1,000 mls @ 100 mls/hr IV ASDIR [facility] Last Admin: 11/28/18 02:07 Dose: 100 mls/hr Insulin Aspart (Novolog Vial Sliding Scale -) 1 vial SQ ACHS [facility]; Protocol Last Admin: 11/28/18 06:52 Dose: Not Given Pramipexole Dihydrochloride (Mirapex -) 0.25 mg PO TID [facility] Last Admin: 11/28/18 06:51 Dose: 0.25 mg Thiamine HCl (Vitamin B1 Injection -) 200 mg IVPB TID [facility] Stop: 11/28/18 22:00 Last Admin: 11/28/18 06:51 Dose: 200 mg Tramadol HCl (Ultram -) 50 mg PO Q8H PRN PRN Reason: PAIN LEVEL 6-10 Last Admin: 11/28/18 06:51 Dose: 50 mg A/P Altered Mental Status improving r/o UTI Acute Kidney Injury Lung Nodule suspicious for malignancy HTN DM Right Sided Rib Fractures - completed antibiotics - IVF - monitor urine output, creatinine - will need CT guided needle biopsy, can be done as outpt - DVT prophylaxis
--- NOTE | 2018-11-28 12:38 | PN ---
Problem List - Problems (1) MARÍA (acute kidney injury) Code(s): N17.9 - ACUTE KIDNEY FAILURE, UNSPECIFIED (2) Back pain Code(s): M54.9 - DORSALGIA, UNSPECIFIED (3) Leukocytosis Code(s): D72.829 - ELEVATED WHITE BLOOD CELL COUNT, UNSPECIFIED (4) Lung mass Code(s): R91.8 - OTHER NONSPECIFIC ABNORMAL FINDING OF LUNG FIELD (5) Toxic metabolic encephalopathy Code(s): G92 - TOXIC ENCEPHALOPATHY (6) Acute renal insufficiency Code(s): N28.9 - DISORDER OF KIDNEY AND URETER, UNSPECIFIED
--- NOTE | 2018-11-28 13:20 | DS ---
Physical Examination Vital Signs: Vital Signs Temperature 97.8 F 11/28/18 09:07 Pulse Rate 67 11/28/18 09:07 Respiratory Rate 20 11/28/18 09:07 Blood Pressure 142/73 11/28/18 09:07 O2 Sat by Pulse Oximetry (%) 94 L 11/28/18 09:00 Constitutional: Yes: No Distress, Calm Cardiovascular: Yes: Regular Rate and Rhythm Respiratory: Yes: CTA Bilaterally Gastrointestinal: Yes: Normal Bowel Sounds, Soft. No: Tenderness Edema: No Labs: CBC, BMP 11/27/18 06:15 11/27/18 06:15 Discharge Summary Reason For Visit: ACUTE KIDNEY INJURY, LEUKOCYTOSIS Current Active Problems MARÍA (acute kidney injury) (Acute) Back pain (Acute) Leukocytosis (Acute) Lung mass (Acute) Penicillin allergy (Acute) Toxic metabolic encephalopathy (Acute) Hospital Course: Admitted for toxic metabolic encephalopathy Seen by ID, Neurology-- empiric on antibiotics but dc by ID as work up negative for infectious source Started on Mirapex by Neurology Renal failure resolved-- most likely due to dehydration, NSAID use Pt has frequent falls at home -- lives alone, will need STR she will need PET CT as outpt for right lung nodule Further recommendations will be made after dc from STR and PET CT results needs pain control and PT, incentive spirometry stable for dc spoke with sister Condition: Stable - Instructions Diet, Activity, Other Instructions: incentive spirometer will need PET cT as outpt Disposition: [facility] - Home Medications Comprehensive Discharge Medication List: Ambulatory Orders Atenolol [Tenormin -] 50 mg PO DAILY 05/18/14 Glipizide [Glipizide ER] 5 mg PO DAILY 05/06/15 Albuterol 0.083% Nebulizer Lindsey [Ventolin 0.083% Nebulizer Soln -] 1 amp NEB Q6H PRN #30 amp 11/28/18 Heparin - 5,000 unit SQ BID #60 vial 11/28/18 Lidocaine 5% Patch [Lidoderm -] 2 patch TP DAILY #30 patch 11/28/18 Pramipexole Di-HCl [Mirapex] 0.5 mg PO TID #60 tablet 11/28/18 traMADol HCL [Ultram -] 50 mg PO Q6H PRN #30 tablet MDD 4 11/28/18
[2018-11-28] MEDS ORDERED: PT OWN MED DRAWER 7, Y5N ONE (13:51)
[2018-11-28] MEDS: LIDOCAINE 5% TOPICAL PATCH TP SCH (13:59)
[2018-11-28] MEDS: PRAMIPEXOLE DIHYDROCHLORIDE 0.5 MG TABLET PO SCH ×2 (14:00→22:29)
[2018-11-28] MEDS ORDERED: LIDOCAINE PATCH REMOVAL MC SCH (22:00)
[2018-11-29] MEDS ORDERED: traMADol HCL 50 MG TABLET PO PRN (01:55)
[2018-11-29] MEDS: INSULIN SLIDING SCALE (NOVOLOG) 1 VIAL SQ SCH ×3 (06:09→17:47)
[2018-11-29] MEDS: PRAMIPEXOLE DIHYDROCHLORIDE 0.5 MG TABLET PO SCH ×2 (06:09→15:26)
[2018-11-29] MEDS ORDERED: PT OWN MED DRAWER 7, Y5N ONE (10:13)
[2018-11-29] MEDS: ATENOLOL 50 MG TABLET (FP) PO SCH (10:46)
[2018-11-29] MEDS: LIDOCAINE 5% TOPICAL PATCH TP SCH (10:47)
[2018-11-29] MEDS: HEPARIN NA (PORCINE) 5,000 UNITS/ML 1ML VIAL SQ SCH (10:47)
[2018-11-29] MEDS ORDERED: ALPRAZolam 0.25 MG TABLET PO PRN (10:56)
--- NOTE | 2018-11-29 10:58 | PN ---
Progress Note (short form) - Note Progress Note: pt seen/ examined awake very anxious/ scared sister at bedside Vital Signs Temp 98.2 F 11/29/18 06:00 Pulse 53 L 11/29/18 06:00 Resp 20 11/29/18 06:00 BP 148/59 L 11/29/18 06:00 Pulse Ox 94 L 11/28/18 21:00 Intake & Output 11/28/18 11/28/18 11/29/18 11:59 23:59 11:59 Intake Total 1350 1400 Balance 1350 1400 Intake: IV 1100 600 Normal Saline - 1,000 ml 1100 600 @ 100 mls/hr IV ASDIR [facility] Rx#:[id number] Oral 250 800 Other: Voiding Method Bedpan Bedpan # Unmeasured Voids Void 2 3 2 Bowel Movement No Active Medications Albuterol Sulfate (Ventolin 0.083% Nebulizer Soln -) 1 amp NEB Q6H PRN PRN Reason: SHORT OF BREATH/WHEEZING Last Admin: 11/28/18 20:06 Dose: 1 amp Alprazolam (Xanax -) 0.25 mg PO BID PRN PRN Reason: ANXIETY Atenolol (Tenormin -) 50 mg PO DAILY [facility] Last Admin: 11/29/18 10:46 Dose: 50 mg Heparin Sodium (Porcine) (Heparin -) 5,000 unit SQ BID [facility] Last Admin: 11/29/18 10:47 Dose: 5,000 unit Insulin Aspart (Novolog Vial Sliding Scale -) 1 vial SQ ACHS [facility]; Protocol Last Admin: 11/29/18 06:09 Dose: Not Given Lidocaine (Lidoderm Patch -) 1 patch TP DAILY [facility] Last Admin: 11/29/18 10:47 Dose: 1 patch Miscellaneous (Lidoderm Patch Removal) 1 each MC DAILY@2200 [facility] Last Admin: 11/28/18 22:29 Dose: 1 each Pramipexole Dihydrochloride (Mirapex -) 0.5 mg PO TID [facility] Last Admin: 11/29/18 06:09 Dose: 0.5 mg Tramadol HCl (Ultram -) 50 mg PO Q8H PRN PRN Reason: PAIN LEVEL 6-10 Last Admin: 11/29/18 02:38 Dose: 50 mg CBC, BMP 11/27/18 06:15 01/16/19 06:15 Physical Exam. Awake/ comfortable. No distress. very nervous lungs- clear cvs- s1, s2 rrr abd- soft/ obese. non tender. bs + ext- no edema neuro- alert and awake Psych--anxiety A/P clinically stable Xanax for anxiety Scheduled for discharge today--- for short-term rehabilitation PET scan--and lung biopsy --- to be done as an outpatient Discussed in detail with patient's sister Will follow. Discussed with nursing staff also Problem List - Problems (1) MARÍA (acute kidney injury) Code(s): N17.9 - ACUTE KIDNEY FAILURE, UNSPECIFIED (2) Back pain Code(s): M54.9 - DORSALGIA, UNSPECIFIED (3) Leukocytosis Code(s): D72.829 - ELEVATED WHITE BLOOD CELL COUNT, UNSPECIFIED (4) Lung mass Code(s): R91.8 - OTHER NONSPECIFIC ABNORMAL FINDING OF LUNG FIELD (5) Toxic metabolic encephalopathy Code(s): G92 - TOXIC ENCEPHALOPATHY (6) Acute renal insufficiency Code(s): N28.9 - DISORDER OF KIDNEY AND URETER, UNSPECIFIED Problem List - Problems (1) Lung mass Code(s): R91.8 - OTHER NONSPECIFIC ABNORMAL FINDING OF LUNG FIELD (2) Toxic metabolic encephalopathy Code(s): G92 - TOXIC ENCEPHALOPATHY (3) MARÍA (acute kidney injury) Code(s): N17.9 - ACUTE KIDNEY FAILURE, UNSPECIFIED (4) Back pain Code(s): M54.9 - DORSALGIA, UNSPECIFIED (5) Leukocytosis Code(s): D72.829 - ELEVATED WHITE BLOOD CELL COUNT, UNSPECIFIED
--- NOTE | 2018-11-29 14:28 | PN ---
Progress Note, Physician History of Present Illness: PULMONARY ALERT,FEELING BETTER,LESS DYSPNEIC,-CP - Current Medication List Current Medications: Active Medications Albuterol Sulfate (Ventolin 0.083% Nebulizer Soln -) 1 amp NEB Q6H PRN PRN Reason: SHORT OF BREATH/WHEEZING Last Admin: 11/28/18 20:06 Dose: 1 amp Alprazolam (Xanax -) 0.25 mg PO BID PRN PRN Reason: ANXIETY Atenolol (Tenormin -) 50 mg PO DAILY [facility] Last Admin: 11/29/18 10:46 Dose: 50 mg Heparin Sodium (Porcine) (Heparin -) 5,000 unit SQ BID [facility] Last Admin: 11/29/18 10:47 Dose: 5,000 unit Insulin Aspart (Novolog Vial Sliding Scale -) 1 vial SQ ACHS [facility]; Protocol Last Admin: 11/29/18 13:30 Dose: Not Given Lidocaine (Lidoderm Patch -) 1 patch TP DAILY [facility] Last Admin: 11/29/18 10:47 Dose: 1 patch Miscellaneous (Lidoderm Patch Removal) 1 each MC DAILY@2200 [facility] Last Admin: 11/28/18 22:29 Dose: 1 each Pramipexole Dihydrochloride (Mirapex -) 0.5 mg PO TID [facility] Last Admin: 11/29/18 06:09 Dose: 0.5 mg Tramadol HCl (Ultram -) 50 mg PO Q8H PRN PRN Reason: PAIN LEVEL 6-10 Last Admin: 11/29/18 02:38 Dose: 50 mg - Objective Vital Signs: Vital Signs Temperature 98.2 F 11/29/18 06:00 Pulse Rate 53 L 11/29/18 06:00 Respiratory Rate 20 11/29/18 06:00 Blood Pressure 148/59 L 11/29/18 06:00 O2 Sat by Pulse Oximetry (%) 94 L 11/28/18 21:00 Constitutional: Yes: Well Nourished, Calm Eyes: Yes: WNL HENT: Yes: WNL Neck: Yes: WNL Cardiovascular: Yes: Regular Rate and Rhythm, S1, S2 Respiratory: Yes: Diminished Gastrointestinal: Yes: Normal Bowel Sounds, Soft Extremities: Yes: WNL Edema: No Labs: CBC, BMP Problem List - Problems (1) Leukocytosis Code(s): D72.829 - ELEVATED WHITE BLOOD CELL COUNT, UNSPECIFIED (2) Lung mass Code(s): R91.8 - OTHER NONSPECIFIC ABNORMAL FINDING OF LUNG FIELD (3) MARÍA (acute kidney injury) Code(s): N17.9 - ACUTE KIDNEY FAILURE, UNSPECIFIED (4) Toxic metabolic encephalopathy Code(s): G92 - TOXIC ENCEPHALOPATHY Assessment/Plan A/P Altered Mental Status improving r/o UTI Acute Kidney Injury Lung Nodule suspicious for malignancy HTN DM Right Sided Rib Fractures - IVF - monitor urine output, creatinine - will need CT guided needle biopsy, can be done as outpt - DVT prophylaxis - PET scan outpatient DR MOON
[2018-11-29] MEDS: ALBUTEROL SO4 0.083% IH SOL 2.5 MG/3 ML VIAL.NEB. NEB PRN (14:29)
[2018-11-29 15:39] VITALS: PULSE 54
[2018-11-29 18:28] VITALS: BP 176/62; TEMP 97.8
--- NOTE | 2018-11-29 19:13 | PN ---
Progress Note (short form) - Note Progress Note: NEUROLOGY PROGRESS: Events reviewed and discussed with RN. Pt was intermittently agitated today, refused meds. Ambulated to BR without assistance. Denies pain EXAM: In NAD More confused today, Laughing inappropriately. Cannot give [facility], month or year. Poorly attentive. More expressive. Decreased tremor. Decreased cogwheeling. Moves all 4's well. IMP: Non-focal exam sig for Moderately severe B/L cerebral dysfunction. Worse today with features of delirium. Parkinson's disease/RLS. SUGGEST: Reduce pramipexole to 0.25 mg PO TID. Repeat UA, C&S. I will see patient in follow-up at [facility] Thank you very much, Chance Galicia MD
== END 2018-11-29 19:05 | DRG 682 ==
LOC: JER 20:23 → JERBED 11-25 01:37 → J5S 11-25 18:41 → OBSVTOIN 11-27 11:44
PROVIDERS: ADMIT Internal Medicine; ATTEND Internal Medicine
DX: N17.9 Acute kidney failure, unspecified (principal); G92 Toxic encephalopathy; N39.0 Urinary tract infection, site not specified; F05 Delirium due to known physiological condition; D72.829 Elevated white blood cell count, unspecified; E11.9 Type 2 diabetes mellitus without complications; R91.8 Other nonspecific abnormal finding of lung field; I10 Essential (primary) hypertension; E78.5 Hyperlipidemia, unspecified; M32.9 Systemic lupus erythematosus, unspecified; Z79.84 Long term (current) use of oral hypoglycemic drugs; Z87.891 Personal history of nicotine dependence; Z85.89 Personal history of malignant neoplasm of other organs and systems; E86.0 Dehydration; Z88.0 Allergy status to penicillin; E66.9 Obesity, unspecified; Z68.29 Body mass index [BMI] 29.0-29.9, adult; E03.9 Hypothyroidism, unspecified; F41.9 Anxiety disorder, unspecified; N28.9 Disorder of kidney and ureter, unspecified; M54.5 Low back pain
CPT/HCPCS: 36415; 70450-TC; 70551-TC; 71045-TC-FY; 71101-TC-RT-FY; 72070-TC-FY; 72100-TC-FY; 76775-TC; 80053; 81003; 81015; 82550; 82553; 82607; 82962; 83036; 84425; 84443; 85025; 85610; 85651; 86140; 86593; 87040; 87086; 93005; 93010; 94010; 94640; 97116-GP; 97161-GP; 99283-25; G0378; J0131; J1644; J7030

== ENCOUNTER 2018-12-01 17:56 | Inpatient (IN) | payer OTHER ==
[2018-12-01] MEDS ORDERED: ACETAMINOPHEN 1000 MG/100 ML VIAL (NON FORMULARY) IVPB ONE (18:37)
--- NOTE | 2018-12-01 18:53 | PDOC ---
History of Present Illness - General Chief Complaint: Altered Mental Status Stated Complaint: LETHARGY Time Seen by Provider: 12/01/18 18:18 History Source: Family Exam Limitations: Clinical Condition - History of Present Illness Initial Comments: 12/01/18 18:51 The patient is a 73F with a PMH of IBS, diabetes, hypertension, dyslipidemia, thyroid disease, and depression who presents to the ER with family for AMS. The patient is with her family who provides the history. The family states that they saw the patient 2 days ago and she was in her normal state of health. Today , they visited her at [facility] and she was found half off the bed and completely altered. They states that she was recently discharged for AMS. The patient cannot provide any history or ROS. Past History - Past Medical History Allergies/Adverse Reactions: Allergies Allergy/AdvReac Type Severity Reaction Status Date / Time Penicillins Allergy Intermediate Verified 12/01/18 18:07 Home Medications: Ambulatory Orders Atenolol [Tenormin -] 50 mg PO DAILY 05/18/14 Glipizide [Glipizide ER] 5 mg PO DAILY 05/06/15 Albuterol 0.083% Nebulizer Lindsey [Ventolin 0.083% Nebulizer Soln -] 1 amp NEB Q6H PRN #30 amp 11/28/18 Heparin - 5,000 unit SQ BID #60 vial 11/28/18 Pramipexole Di-HCl [Mirapex] 0.5 mg PO TID #60 tablet 11/28/18 traMADol HCL [Ultram -] 50 mg PO Q6H PRN #30 tablet MDD 4 11/28/18 Acetaminophen 650 mg PO Q6H 12/01/18 Menthol [Bengay Ultra Strength] 1 each TP DAILY 12/01/18 Anemia: No Asthma: No Cancer: No Cardiac Disorders: No CVA: No COPD: No CHF: No Dementia: No Diabetes: Yes Dialysis: Yes (PRE) GI Disorders: No Disorders: No HTN: Yes Hypercholesterolemia: Yes Liver Disease: No Seizures: No Thyroid Disease: No - Surgical History Abdominal Surgery: No 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, pre cancerous tumor inside ap) Cardiac Surgery: No Cholecystectomy: No Lung Surgery: No Neurologic Surgery: No Orthopedic Surgery: No - Family Disease History Family Disease History: Diabetes: Mother, Heart Disease: Father - Immunization History Immunization Up to Date: Yes - Suicide/Smoking/Psychosocial Hx Smoking History: Never smoked Have you smoked in the past 12 months: No If you are a former smoker, when did you quit?: 26 yrs ago Information on smoking cessation initiated: No Hx Alcohol Use: No Drug/Substance Use Hx: No Substance Use Type: None Hx Substance Use Treatment: No Review of Systems - Review of Systems Able to Perform ROS?: No (altered) *Physical Exam - Vital Signs Last Vital Signs Temp Pulse Resp BP Pulse Ox 99.5 F 88 24 H 163/84 93 L 12/01/18 18:07 12/01/18 18:07 12/01/18 18:07 12/01/18 18:07 12/01/18 18:07 - Physical Exam Comments: 12/01/18 19:19 GENERAL: Well developed, well nourished. Altered. No acute distress. HEENT: Normocephalic, atraumatic. Hearing grossly normal. Moist mucous membranes. PERRLA, EOMI. No conjunctival pallor. Sclera are non-icteric. NECK: Supple. Full ROM. No JVD. CARDIOVASCULAR: Regular rate and rhythm. No murmurs, rubs, or gallops. PULMONARY: No evidence of respiratory distress. Coarse breath sounds bilaterally. ABDOMINAL: Ex-lap scar present. Soft. Non-tender. Non-distended. No rebound or guarding. GENITOURINARY: No CVA tenderness bilaterally. MUSCULOSKELETAL: Normal range of motion at all joints. No bony deformities or tenderness. EXTREMITIES: No cyanosis. No clubbing. No edema. No calf tenderness or swelling. SKIN: Warm and dry. Normal capillary refill. No rashes. No jaundice. NEUROLOGICAL: Awake, not alert or appropriate. A&Ox0. Cranial nerves 2-12 grossly intact. PSYCHIATRIC: Somewhat cooperative. Moderate Sedation - Procedure Monitoring Vital Signs: Procedure Monitoring Vital Signs Temperature 99.5 F 12/01/18 18:07 Pulse Rate 88 12/01/18 18:07 Respiratory Rate 24 H 12/01/18 18:07 Blood Pressure 163/84 12/01/18 18:07 O2 Sat by Pulse Oximetry (%) 93 L 12/01/18 18:07 ED Treatment Course - LABORATORY CBC & Chemistry Diagram: 12/01/18 18:40 12/01/18 18:40 - RADIOLOGY Radiology Studies Ordered: Category Date Time Status CHEST X-RAY PORTABLE* [RAD] Stat Radiology 12/01/18 18:36 Taken Medical Decision Making - Medical Decision Making 12/01/18 19:20 The patient is a 73F who presents with AMS. BG 129. Pt is warm to touch, tachypneic, and was found altered, concerning for sepsis. Septic protocol is being followed. CBC shows WBC of 14.5. UA indicates trace LE, pending micro. Rectal temp is 99.5. Will hold on abx until source. CXR unchanged on preliminary read. Family at bedside. Pt hemodynamically stable, will not require fluids currently. 12/01/18 20:50 CMP, trop, lactate WNL. Head CT negative for bleed on preliminary read. Pt currently a&ox0, still altered. Will place admission orders for undifferentiated AMS and leukocytosis. 12/01/18 20:58 CT impression: Impression: 1. Possible mild left maxillary sinusitis. 2. Mild chronic small vessel ischemic changes. 3. Otherwise, negative unenhanced CT of the brain 12/01/18 21:21 I have endorsed the patient to [facility] for admission under Dr. Jacinto. 12/01/18 22:12 Family members: Daughter - Beatriz [phone] Son in Law - Stas [phone] *DC/Admit/Observation/Transfer Diagnosis at time of Disposition: Leukocytosis Qualifiers: Leukocytosis type: unspecified Qualified Code(s): D72.829 - Elevated white blood cell count, unspecified Altered mental status Qualifiers: Altered mental status type: unspecified Qualified Code(s): R41.82 - Altered mental status, unspecified - Discharge Dispostion Condition at time of disposition: Guarded Decision to Admit order: Yes - Referrals - Patient Instructions - Post Discharge Activity
[2018-12-01 18:54] LABS: VENOUS PC02 38.8 mmHg (38-52); VENOUS PH 7.41 (7.32-7.42); VENOUS PO2 52.8 mmHg (28-48)
[2018-12-01 18:59] LABS: BASO % 1.1 % (0-2.0); EOS % 0.3 % (0-4.5); HEMATOCRIT 34.9 % (32.4-45.2); LYMPH % 12.6 % (8-40); MCH 23.3 pg (25.7-33.7); MCHC 31.4 g/dl (32.0-36.0); MEAN CELL VOLUME 74.1 fl (80-96); MEAN PLT VOLUME 8.9 fl (7.5-11.1); MONO % 7.5 % (3.8-10.2); NEUT % 78.5 % (42.8-82.8); PLATELET COUNT 208 K/MM3 (134-434); RBC 4.71 M/mm3 (3.60-5.2); RDW 20.7 % (11.6-15.6); WHITE BLOOD COUNT 14.5 K/mm3 (4.0-10.0)
[2018-12-01] MEDS ORDERED: VANCOMYCIN 1,000 MG in DEXTROSE 5%-WATER - 250 ML IVPB ONE (19:02)
[2018-12-01] MEDS ORDERED: PIPERACILLIN/TAZOB 3.375 GM 3.375 GM in DEXTROSE 5%-WATER - 50 ML IVPB ONE (19:02)
[2018-12-01] MEDS ORDERED: MEROPENEM 1 GM in DEXTROSE 5%-WATER 100 ML IVPB ONE (19:04)
[2018-12-01 19:12] LABS: URINE APPEARANCE SLCLOUDY; URINE BILIRUBIN NEGATIVE (<2.0 mg/dL); URINE COLOR YELLOW; URINE GLUCOSE (UA) NEGATIVE (NEGATIVE); URINE KETONE NEGATIVE (NEGATIVE); URINE LEUK ESTERASE TRACE (NEGATIVE); URINE NITRITE NEGATIVE (NEGATIVE); URINE PROTEIN 1+ (NEGATIVE); URINE UROBILINOGEN NEGATIVE mg/dL (0.2-1.0)
[2018-12-01 19:17] LABS: EPI CELLS RARE /HPF (FEW); URINE BACTERIA RARE /hpf (NONE SEEN)
[2018-12-01 19:19] LABS: INR 1.22 (0.83-1.09); PROTHROMBIN TIME (PATIENT) 14.4 SEC (9.7-13.0)
[2018-12-01 19:22] LABS: ACTIVATED PTT 25.5 SECONDS (25.2-36.5)
[2018-12-01 19:30] LABS: ALBUMIN 3.4 g/dl (3.4-5.0); ALK PHOS 220 U/L (45-117); ANION GAP 13 MMOL/L (8-16); BILIRUBIN,TOTAL 0.5 mg/dL (0.2-1); BLOOD UREA NITROGEN 30 mg/dL (7-18); CALCIUM 12.3 mg/dL (8.5-10.1); CHLORIDE 106 mmol/L (98-107); CO2 22 mmol/L (21-32); CREATININE 1.4 mg/dL (0.55-1.3); GLUCOSE,RANDOM 193 mg/dL (74-106); POTASSIUM 4.6 mmol/L (3.5-5.1); SGOT/AST 33 U/L (15-37); SGPT/ALT 21 U/L (13-61); SODIUM 141 mmol/L (136-145); TOT PROT 7.5 g/dl (6.4-8.2)
[2018-12-01] MEDS ORDERED: ACETAMINOPHEN INJECTION 100 ML IVPB ONE (19:30)
--- NOTE | 2018-12-01 21:08 | HP ---
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 Who presents to the ED for AMS, Lethargy. Per ED records: Patient presents to the ER with family for AMS. The patient is with her family who provides the history. The family states that they saw the patient 2 days ago and she was in her normal state of health. Today, they visited her at [facility] and she was found half off the bed and completely altered. They state that she was recently discharged for AMS. The patient cannot provide any history or ROS. ED Course noted for: 1. Head CT- no ICH, chronic atrophy 2. Chest Xray- no acute pathology, right lower mass previously noted 3. WBC 14.5 4. BUN 30, Cr 1.4 History Source: Family Member, Medical Record, Transfer Record Limitations to Obtaining History: Clinical Condition - Past Medical History Cardiovascular: Yes: CAD, HTN, Hyperlipdemia Pulmonary: Yes: COPD Psych: Yes: Anxiety, Depression Rheumatology: Yes: Fibromyalgia Endocrine: Yes: Diabetes Mellitus, Hypothyroidism - Smoking History Smoking history: Former smoker Have you smoked in the past 12 months: No If you are a former smoker, when did you quit?: 26 yrs ago - Alcohol/Substance Use Hx Alcohol Use: No History of Substance Use: reports: None - Social History Usual Living Arrangement: Yes: Retirement ADL: Support Services History of Recent Travel: No Home Medications - Allergies Allergies/Adverse Reactions: Allergies Allergy/AdvReac Type Severity Reaction Status Date / Time Penicillins Allergy Intermediate Verified 12/01/18 18:07 - Home Medications Home Medications: Ambulatory Orders Atenolol [Tenormin -] 50 mg PO DAILY 05/18/14 Glipizide [Glipizide ER] 5 mg PO DAILY 05/06/15 Albuterol 0.083% Nebulizer Lindsey [Ventolin 0.083% Nebulizer Soln -] 1 amp NEB Q6H PRN #30 amp 11/28/18 Heparin - 5,000 unit SQ BID #60 vial 11/28/18 Pramipexole Di-HCl [Mirapex] 0.5 mg PO TID #60 tablet 11/28/18 traMADol HCL [Ultram -] 50 mg PO Q6H PRN #30 tablet MDD 4 11/28/18 Acetaminophen 650 mg PO Q6H 12/01/18 Menthol [Bengay Ultra Strength] 1 each TP DAILY 12/01/18 Family Disease History - Family Disease History Family History: Unable to Obtain Review of Systems Unable to obtain ROS, reason: AMS Physical Examination Vital Signs: Vital Signs Temperature 99.5 F 12/01/18 19:15 Pulse Rate 78 12/01/18 19:15 Respiratory Rate 24 H 12/01/18 18:07 Blood Pressure 163/84 12/01/18 18:07 O2 Sat by Pulse Oximetry (%) 93 L 12/01/18 18:07 Constitutional: Yes: Other (Oriented to name only Restless) Eyes: Yes: Conjunctiva Clear, PERRL HENT: Yes: WNL, Atraumatic, Normocephalic Neck: Yes: WNL, Supple, Trachea Midline Cardiovascular: Yes: Regular Rate and Rhythm, S1, S2 Respiratory: Yes: Regular, CTA Bilaterally, On Nasal O2 Gastrointestinal: Yes: Normal Bowel Sounds, Soft Breast(s): Yes: WNL Musculoskeletal: Yes: WNL Extremities: Yes: WNL Edema: No Peripheral Pulses WNL: Yes Neurological: Yes: Confusion Psychiatric: Yes: Alert (name only) Labs: CBC, BMP 12/01/18 18:40 12/01/18 18:40 Imaging - Results Chest X-ray: Report Reviewed, Image Reviewed Cat Scan: Report Reviewed, Image Reviewed EKG: Pending Problem List - Problems (1) Toxic metabolic encephalopathy Assessment/Plan: Likely secondary to infection vs electrolyte imbalance vs medication Head CT- no ICH, mass or lesion Appreciate Neurology consult WBC 14.5 likely infectious vs malignancy Monitor CBC, BMP Monitor vitals Fall Precautions Aspiration Precautions Keep NPO Code(s): G92 - TOXIC ENCEPHALOPATHY (2) Altered mental status Assessment/Plan: See above Code(s): R41.82 - ALTERED MENTAL STATUS, UNSPECIFIED Qualifiers: Altered mental status type: unspecified Qualified Code(s): R41.82 - Altered mental status, unspecified (3) Leukocytosis Assessment/Plan: Likely due to infection vs inflammation vs malignanncy Blood cultures-pending Urine culture-pending T Max 99.5 Will empirically treat with Levaquin possible UTI, PNA Appreciate ID consult Monitor CBC Monitor vitals Code(s): D72.829 - ELEVATED WHITE BLOOD CELL COUNT, UNSPECIFIED Qualifiers: Leukocytosis type: unspecified Qualified Code(s): D72.829 - Elevated white blood cell count, unspecified (4) Diabetes Assessment/Plan: stable BGMs ISS when diet resumed Monitor BMP Monitor renal function Code(s): E11.9 - TYPE 2 DIABETES MELLITUS WITHOUT COMPLICATIONS (5) CAD (coronary artery disease) Assessment/Plan: stable EKG pending Resume meds when pt can tolerate PO Code(s): I25.10 - ATHSCL HEART DISEASE OF [place] CORONARY ARTERY W/O ANG PCTRS (6) HLD (hyperlipidemia) Assessment/Plan: Monitor LFTs Resume meds accordingly Code(s): E78.5 - HYPERLIPIDEMIA, UNSPECIFIED (7) Hypothyroidism Assessment/Plan: TSH in am Resume meds Code(s): E03.9 - HYPOTHYROIDISM, UNSPECIFIED (8) MARÍA (acute kidney injury) Assessment/Plan: Likely secondary to dehydration Cr 1.4 slightly above baseline Monitor BMP Renal US 11/25/18 showed no hydronephrosis, no acute pathology Code(s): N17.9 - ACUTE KIDNEY FAILURE, UNSPECIFIED Assessment/Plan This is a 73 y/o woman from [facility] witha PMHx of: HTN, COPD, DM, HLD, CAD, FM , Hypothyroidism, Depression. Admitted for Toxic Metabolic Encephalopathy, Fever , Leukocytosis for further evaluation of their emergent condition. Plan: See Problem List FEN D51/2NS@42ml/hr Replete lytes prn NPO DVT ppx SCDs Heparin SQ Visit type - Emergency Visit Emergency Visit: Yes ED Registration Date: 12/01/18 Care time: The patient presented to the Emergency Department on the above date and was hospitalized for further evaluation of their emergent condition. - New Patient This patient is new to me today: Yes Date on this admission: 12/01/18 - Critical Care Critical Care patient: No
--- NOTE | 2018-12-01 21:12 | PDOC ---
Attending Attestation - Resident Resident Name: Madhav Medina - ED Attending Attestation I have performed the following: I have examined & evaluated the patient, The case was reviewed & discussed with the resident, I agree w/resident's findings & plan, Exceptions are as noted - HPI HPI: 12/01/18 21:11 73 yo female BIBA from [facility] for AMS. She recently 11/25/18 was admitted for the same - Physicial Exam PE: 12/01/18 21:12 wnwd 73 yo female who is Ax xox1 brought in from [facility] head no scalp lacerations,no scalp hematoma neck supple lungs cta b/l cvs rrr s1s2 abd no rebound,no guarding ext no erythema.no pitting edema skin warm and dry neuro nonverbal,moving extremities - Medical Decision Making 12/01/18 21:22 73-year-old female brought in by ambulance from [facility] for altered mental status Last she had CAT scan of the head and brain MRI for similar complaint. Concern for sepsis, however. Rectal temp 99.5. Normotensive, afebrile -her daughter stated the patient was started on ULTRAM patches on for pain, at this time, I don't see any patches on her skin. -her pain meds could be attributing to her AMS 12/01/18 21:25 cxr no infiltrates,however RLL nodule again seen UA neg nitrites,trace tammy,[address] head no acute intracranial pathology will admit to med/surg <Aliyah Mandel - Last Filed: 12/01/18 21:24> - HPI HPI: 12/01/18 21:37 The patient is a 73 year old female, from [facility] accompanied by family, with a past medical history of IBS, diabetes, hemodialysis, hypertension, dyslipidemia, thyroid disease, and depression who presents to the ED today complaining of altered mental status. As per family, patient was at her mental baseline 2 days ago. As per family, the patient was found half off the bed and completely altered. <Layo Rasmussen - Last Filed: 12/01/18 21:38> Attestations - Attestations 12/01/18 21:37 Documentation prepared by Layo Rasmussen, acting as medical records assistant for Aliyah Mandel MD <Layo Rasmussen - Last Filed: 12/01/18 21:38>
[2018-12-01 21:43] LABS: ANISOCYTOSIS 2+; PLATELET ESTIMATE ADEQUATE
[2018-12-01] MEDS ORDERED: DEXTROSE 5%-0.45% SALINE 1,000 ML IV SCH (23:15)
[2018-12-01] MEDS ORDERED: ACETAMINOPHEN 1000 MG/100 ML VIAL (NON FORMULARY) IVPB PRN (23:21)
[2018-12-02 03:33] VITALS: BMI 26.5
[2018-12-02 07:49] LABS: BASO % 0.5 % (0-2.0); EOS % 0.2 % (0-4.5); HEMATOCRIT 34.7 % (32.4-45.2); LYMPH % 8.3 % (8-40); MCH 23.7 pg (25.7-33.7); MCHC 31.7 g/dl (32.0-36.0); MEAN CELL VOLUME 74.6 fl (80-96); MEAN PLT VOLUME 9.1 fl (7.5-11.1); PLATELET COUNT 232 K/MM3 (134-434); RBC 4.65 M/mm3 (3.60-5.2); RDW 20.5 % (11.6-15.6)
[2018-12-02 08:27] LABS: ANION GAP 10 MMOL/L (8-16); BLOOD UREA NITROGEN 32 mg/dL (7-18); CALCIUM 12.4 mg/dL (8.5-10.1); CHLORIDE 107 mmol/L (98-107); CO2 25 mmol/L (21-32); CREATININE 1.5 mg/dL (0.55-1.3); GLUCOSE,RANDOM 212 mg/dL (74-106); MAGNESIUM 1.4 mg/dL (1.8-2.4); PHOSPHOROUS 4.4 mg/dL (2.5-4.9); POTASSIUM 4.4 mmol/L (3.5-5.1); SODIUM 141 mmol/L (136-145)
[2018-12-02] MEDS ORDERED: ALBUTEROL SO4 0.083% IH SOL 2.5 MG/3 ML VIAL.NEB. NEB PRN (09:02)
[2018-12-02] MEDS: HEPARIN NA (PORCINE) 5,000 UNITS/ML 1ML VIAL SQ SCH ×2 (10:28→23:42)
--- NOTE | 2018-12-02 11:09 | PN ---
Progress Note (short form) - Note Progress Note: pt seen/ examined chart reviewed awake Confused Not talking Afebrile Vital Signs Temp 98.2 F 12/02/18 06:00 Pulse 86 12/02/18 06:00 Resp 20 12/02/18 06:00 BP 152/84 12/02/18 06:00 Pulse Ox 97 12/02/18 03:38 Intake & Output 12/01/18 12/01/18 12/02/18 11:59 23:59 11:59 Intake Total 200 Output Total 440 Balance -440 200 Weight 152 lb 150 lb Intake: IV 200 D5-1/2Ns - 1,000 ml @ 42 200 mls/hr IV ASDIR NICHOLAS Rx#: [id number] Oral 0 Output: Urine 440 Straight Cath 440 Other: Voiding Method Diaper # Unmeasured Voids Straight Cath 2 Bowel Movement No Height 5 ft 3 in 5 ft 3 in Body Mass Index (BMI) 26.9 26.5 Weight Measurement Method Built in [facility] Weight Measurement Method Estimated by Staff Active Medications Acetaminophen (Ofirmev Injection -) 1,000 mg IVPB Q6H PRN PRN Reason: PAIN LEVEL 6-10 OR FEVER Albuterol Sulfate (Ventolin 0.083% Nebulizer Soln -) 1 amp NEB Q6H PRN PRN Reason: SHORT OF BREATH/WHEEZING Heparin Sodium (Porcine) (Heparin -) 5,000 unit SQ BID [facility] Last Admin: 12/02/18 10:28 Dose: 5,000 unit Dextrose/Sodium Chloride (D5-1/2ns -) 1,000 mls @ 42 mls/hr IV ASDIR NICHOLAS Last Admin: 12/02/18 00:58 Dose: 42 mls/hr CBC, BMP 12/02/18 07:00 12/02/18 07:00 CT--- head--- negative Physical Exam. Awake and confused. heent- no jvd lungs- diminished at bases cvs- s1, s2 rrr abd- soft/ obese ext- no edema neuro- moves all extremities--- nonfocal-- A/P acute stress syndrome UTI? Hypercalcemia Lung mass Diabetes renal insufficiency Discussed in detail with patient's sister today pulmonary/ oncology/psych/ psychologist consults--requested Discussed with pulmonary as well as oncology also today They will follow increase fluids labs esr add basal insulin fall precautions discussed with nursing staff also Will follow further recommendations as per clinical course Problem List - Problems (1) Hypercalcemia Code(s): E83.52 - HYPERCALCEMIA (2) Altered mental status Code(s): R41.82 - ALTERED MENTAL STATUS, UNSPECIFIED Qualifiers: Altered mental status type: unspecified Qualified Code(s): R41.82 - Altered mental status, unspecified (3) Diabetes Code(s): E11.9 - TYPE 2 DIABETES MELLITUS WITHOUT COMPLICATIONS (4) Leukocytosis Code(s): D72.829 - ELEVATED WHITE BLOOD CELL COUNT, UNSPECIFIED Qualifiers: Leukocytosis type: unspecified Qualified Code(s): D72.829 - Elevated white blood cell count, unspecified (5) MARÍA (acute kidney injury) Code(s): N17.9 - ACUTE KIDNEY FAILURE, UNSPECIFIED (6) Lung mass Code(s): R91.8 - OTHER NONSPECIFIC ABNORMAL FINDING OF LUNG FIELD (7) Toxic metabolic encephalopathy Code(s): G92 - TOXIC ENCEPHALOPATHY
[2018-12-02] MEDS ORDERED: DEXTROSE 5%-0.45% SALINE 1,000 ML IV SCH (11:11)
[2018-12-02 11:12] LABS: ANISOCYTOSIS 1+; MACROCYTOSIS 0; PLATELET ESTIMATE NORMAL
--- NOTE | 2018-12-02 12:07 | EKG ---
Test Reason : Blood Pressure : / mmHG Vent. Rate : 060 BPM Atrial Rate : 060 BPM P-R Int : 138 ms QRS Dur : 082 ms QT Int : 392 ms P-R-T Axes : 063 080 057 degrees QTc Int : 392 ms NORMAL SINUS RHYTHM NORMAL ECG WHEN COMPARED WITH ECG OF 25-NOV-2018 00:57, NO SIGNIFICANT CHANGE WAS FOUND Confirmed by JAYSON GOODMAN MD ([id number]) on 12/02/2018 12:07:08 PM Referred By: Confirmed By:JAYSON GOODMAN MD
--- NOTE | 2018-12-02 13:05 | CONSULT ---
Consult Consult Specialty:: Hemonc Referred by:: Dr. 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 Patient's still altered only respond to painful stimuli. At [facility], her chest CT and all prior CXRs before 10/2018 do not show any lung nodule or mass. However, CXR and CT chest on 11/01/18 showed 0.5x0.3cm nodule in LLL and 2cm mass in RLL. - History Source History Provided By: Medical Record - Past Medical History Cardio/Vascular: Yes: CAD, HTN, Hyperlipdemia Pulmonary: Yes: COPD Psych: Yes: Anxiety, Depression Rheumatology: Yes: Fibromyalgia Endocrine: Yes: Diabetes Mellitus, Hypothyroidism - Alcohol/Substance Use Hx Alcohol Use: No History of Substance Use: reports: None - Smoking History Smoking history: Former smoker Have you smoked in the past 12 months: No If you are a former smoker, when did you quit?: 26 yrs ago - Social History ADL: Support Services History of Recent Travel: No Home Medications - Allergies Allergies/Adverse Reactions: Allergies Allergy/AdvReac Type Severity Reaction Status Date / Time Penicillins Allergy Intermediate Verified 12/01/18 18:07 - Home Medications Home Medications: Ambulatory Orders Atenolol [Tenormin -] 50 mg PO DAILY 05/18/14 Glipizide [Glipizide ER] 5 mg PO DAILY 05/06/15 Albuterol 0.083% Nebulizer Lindsey [Ventolin 0.083% Nebulizer Soln -] 1 amp NEB Q6H PRN #30 amp 11/28/18 Heparin - 5,000 unit SQ BID #60 vial 11/28/18 Pramipexole Di-HCl [Mirapex] 0.5 mg PO TID #60 tablet 11/28/18 traMADol HCL [Ultram -] 50 mg PO Q6H PRN #30 tablet MDD 4 11/28/18 Acetaminophen 650 mg PO Q6H 12/01/18 Menthol [Bengay Ultra Strength] 1 each TP DAILY 12/01/18 Review of Systems Unable to obtain ROS, reason: alteredmental status Physical Exam Vital Signs: Vital Signs Temperature 98.2 F 12/02/18 06:00 Pulse Rate 94 H 12/02/18 12:00 Respiratory Rate 20 12/02/18 12:00 Blood Pressure 162/71 12/02/18 12:00 O2 Sat by Pulse Oximetry (%) 96 12/02/18 09:00 Constitutional: Yes: Other (altered, lethargic, does not open eyes, only respond to painful stimuli) Eyes: Yes: Conjunctiva Clear, EOM Intact HENT: Yes: Atraumatic, Normocephalic Neck: Yes: Supple, Trachea Midline Cardiovascular: Yes: Regular Rate and Rhythm, S1, S2. No: Murmur Respiratory: Yes: CTA Bilaterally Gastrointestinal: Yes: Normal Bowel Sounds, Soft Breast(s): Yes: WNL. No: Mass Edema: No Neurological: Yes: Unresponsive. No: Alert, Oriented Labs: CBC, BMP 12/02/18 07:00 12/02/18 07:00 Imaging - Results X-ray: Report Reviewed, Image Reviewed Cat Scan: Report Reviewed, Image Reviewed Assessment/Plan 73 [facility] F [facility] w/ h/o HTN, COPD, DM, HLD, CAD, FM, Hypothyroidism, Depression, Ruptured Appendix 2/2 Appendiceal adenoCA admitted for altered mental status , now with incidental finding of lung mass. 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
[2018-12-02] MEDS ORDERED: ZOLEDRONIC ACID 3 MG in SODIUM CHLORIDE 100 ML IVPB ONE (13:29)
[2018-12-02] MEDS ORDERED: SODIUM CHLORIDE 1,000 ML IV SCH (13:30)
[2018-12-02] MEDS ORDERED: PHYTONADIONE 5 MG TABLET PO ONE (13:39)
[2018-12-02] MEDS ORDERED: PHYTONADIONE 10 MG/1 ML AMP SQ ONE (13:44)
--- NOTE | 2018-12-02 16:47 | CON.PSL ---
Psychology Consult Consult Specialty:: Neuropsychology Referred by:: Dr. Jacinto History Provided By: Family Member Current Medications: Active Medications Acetaminophen (Ofirmev Injection -) 1,000 mg IVPB Q6H PRN PRN Reason: PAIN LEVEL 6-10 OR FEVER Albuterol Sulfate (Ventolin 0.083% Nebulizer Soln -) 1 amp NEB Q6H PRN PRN Reason: SHORT OF BREATH/WHEEZING Last Admin: 12/02/18 11:20 Dose: 1 amp Heparin Sodium (Porcine) (Heparin -) 5,000 unit SQ BID NICHOLAS Last Admin: 12/02/18 10:28 Dose: 5,000 unit Levofloxacin (Levaquin 250 Mg Premixed Ivpb -) 250 mg in 50 mls @ 50 mls/hr IVPB DAILY NICHOLAS; Protocol Sodium Chloride (Normal Saline -) 1,000 mls @ 100 mls/hr IV ASDIR NICHOLAS Last Admin: 12/02/18 14:40 Dose: 100 mls/hr Insulin Aspart (Novolog Vial Sliding Scale -) 1 vial SQ BIDAC NICHOLAS; Protocol Insulin Detemir (Levemir Vial) 10 units SQ HS NICHOLAS Allergies: Allergies Allergy/AdvReac Type Severity Reaction Status Date / Time Penicillins Allergy Intermediate Verified 12/01/18 18:07 Does patient have pain?: Yes (Acording to her sister, she has pain related to injured ribs from a fall.) Pain Location Body Site: Chest Pain Description: Non-Descriptive (The patient also incurred bruises to her upper extremities per family members.) Hx Alcohol Use: No Hx Substance Use: No Hx Substance Use Treatment: No - Family History Family History: Unable to Obtain (However, the patient's sister and brother in law indicated that she lived in a senior housing. However, her room was filthy with dirty diapers and feces was observed in the hallway as well. The patient has another sister who makes sure she has food. ) Current Medical Exam-Psy Attention: Other (The patient did not offer verbal responses and only appeared to shake her head when asked questions possibly responding in the negative. She did not respond to verbal commands to raise her arms but she was observed raising her left arm on her own accord.) Thought Process: Other (Her Mental status as to depression, anxiety and pain were not obtainable due to her not responding and apparently being uncooperative. There is a question as to whether she may be experiencing a decline in cognitive functions as her family members also noted that she would respond with unrelated material relative o the topic they were discussing.) Danger to Self and Others: Unable to Verbalize (We could not determine her sleep , appetite or other functions due to her unresponsive behavior.) Support System: Family Other Findings/Remarks: The patient appears to be experiencing decline of her cognitive abilities. Her behaviors have a history of representing suggestions of borderline personality traits according to her sister. The patient started exhibiting this decline since Sunday per family observations. Prior to this the patient was described as being very agitated about the plan to discharge her to the SNF. Once at the facility, she was said to have been treated inappropriately and her sister had to have her transferred back to [facility] due to emergent medical needs. Problem List - Problem (1) Altered mental status Code(s): R41.82 - ALTERED MENTAL STATUS, UNSPECIFIED Qualifiers: Altered mental status type: unspecified Qualified Code(s): R41.82 - Altered mental status, unspecified (2) Toxic metabolic encephalopathy Code(s): G92 - TOXIC ENCEPHALOPATHY (3) Cognitive and neurobehavioral dysfunction Code(s): F09 - UNSP MENTAL DISORDER DUE TO KNOWN PHYSIOLOGICAL CONDITION; F07.89 - OTH PERSONALITY & BEHAVRL DISORD DUE TO KNOWN PHYSIOL COND Assessment/Plan The patient needs to be assessed by a psychiatrist and neurologist to ascertain any changes in brain functioning per PET Scan or fMRI. Her responses to physical examination also can be determined as to pain, cold and heat to establish extremity response to stimuli. If she were to regain basic cognitive functions, a neuropsychological examination might be of value if a basic MSE is too limited in determining her general IQ, verbal and nonverbal memory, abstract reasoning skills, and visual perception abilities. Thank you for the opportunity to see this patient and meet her family. They were given my office phone number if they wish to consult with me further.
[2018-12-02] MEDS: INSULIN SLIDING SCALE (NOVOLOG) 1 VIAL SQ SCH (16:59)
--- NOTE | 2018-12-02 19:48 | PN ---
Teaching Attending Note Name of Resident: Curtis Ramesh ATTENDING PHYSICIAN STATEMENT I saw and evaluated the patient. I reviewed the resident's note and discussed the case with the resident. I agree with the resident's findings and plan as documented. 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 hemicolectomy--0/15 nodes negative check CA125, CEA LAst imaging in 2015 was nl ? repeat CT a/p once clinically improved Altered mental status -- ? infectious ? hypercalcemia check blood/urine cx ID consult
--- NOTE | 2018-12-02 20:56 | CONSULT ---
Consult - text type - Consultation Consultation Note: NEUROLOGY CONSULTATION is greatly appreciated: Events reviewed and discussed with RN and Dr. Lopez. This 73 yo woman with h/o HTN, COPD, DM, Chol, appendiceal carcinoma and recent RLL Lung mass. Please see my consult of 11/25/18 performed in evaluation of 3 mos of progressive pain, shaking and gait deterioration. Found to have mild OMS and signs of PD. Pain and tremor improved initially of pramipexole. MRI of brain (11/25/18) showed moderate atrophy, diffuse microvascular changes and a right basal ganglia lacunar infarct. Pt was transferred to [facility] on 11/26/18 but developed increased confusion and decreased responsiveness. CT of head (reviewed): Unchanged form 11/23/18 with moderate atrophy and scattered microvascular changes. On Levqaquin 250 BID WBC= 14.4 > 19 K. Ca++= 12.4 mg% EXAM: Afebrile. Diffusely rigid and tremulous. Neck rigid in all directions. [place]ig -. In diaper NEURO: Awake, alert, Follows no commands. Full roving EOM's No facial asymmetry. Moves all fours spontaneously and withdraws briskly to pinch. Brisk reflexes. Plantars silent. Grimaces and Reacts to pinch all fours IMP: Severe, B/L cerebral dysfunction with features of delirium Most likely a severe Toxic-metabolic encephalopathy but cannot exclude meningitis. SUGGEST: Transfer to ICU. Hydrate and correct hypercalcemia. Follow lytes closely ID consulted (awaiting call back) to expand antibiotics for TRACK DRESSER penetration (Ceftriaxone 2 gm if OK with PCN allergy). May need LP under X Ray guidance if no response to antibiotics and correction of Ca++ Continue to observe off Pramipexole. Thank you very much, Chance Roman MD
[2018-12-02] MEDS ORDERED: INSULIN (LEVEMIR) 100 UNITS/ML UNITS SQ SCH (22:00)
[2018-12-02 22:34] LABS: ANION GAP 12 MMOL/L (8-16); BLOOD UREA NITROGEN 43 mg/dL (7-18); CALCIUM 12.5 mg/dL (8.5-10.1); CHLORIDE 113 mmol/L (98-107); CO2 23 mmol/L (21-32); GLUCOSE,RANDOM 208 mg/dL (74-106); MAGNESIUM 1.5 mg/dL (1.8-2.4); POTASSIUM 4.5 mmol/L (3.5-5.1); SODIUM 148 mmol/L (136-145)
[2018-12-02] MEDS ORDERED: ACETAMINOPHEN 1000 MG/100 ML VIAL (NON FORMULARY) IVPB ONE (23:22)
[2018-12-02] MEDS ORDERED: MAGNESIUM SULF 50% (8.12 MEQ/2 ML-1 GM VIAL) IVPB ONE (23:28)
[2018-12-02] MEDS: VANCOMYCIN 1 GRAM (PRE-DOCKED) 1,000 MG/250 ML BAG IVPB SCH (23:29)
[2018-12-02] MEDS: CALCITONIN - SALMON SYNTHETIC 400 UNIT/2 ML VIAL SQ SCH (23:30)
[2018-12-02] MEDS: ACYCLOVIR INJECTION 750 MG in DEXTROSE 5%-WATER - 250 ML IVPB SCH (23:41)
--- NOTE | 2018-12-03 00:53 | CONSULT ---
Consult Consult Specialty:: ICU Referred by:: josefa Reason for Consultation:: ICU monitoring for AMS - History of Present Illness Chief Complaint: AMS, lethargic History of Present Illness: Patient is awake but nonresponsive. transferred from [facility] as per neurology recommendation for ICU monitoring of AMS with concern for meningitis. history obtained from chart review. 73 yr old woman with HTN, DM, parkinson's disease, COPD(former smoker), HLD, Hypothyroidism, appendiceal adenocarcinoma, 2.5cm RLL lung nodule found on CX bibems from [facility] due to AMS. Pt was recently in [facility] (11/24-11/29/2018) for AMS due to toxic metabolic encephalopathy, she was treated with IV abx for UTI and MARÍA, pt has improved with IVF and mental status returned to baseline at time of DC to subacute rehab. morning of this admission, pt's family noted pt was "hanging off the bed " and not interacting with them appropriately. 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 complicated by retroperitoneal abscess summary of selected imagin12/01/[address] without acute pathology 11/25/2018 brain MRI without acute pathology 11/27/2018 rib series with mildly displaced right fourth rib fracture, nondisplaced fracture right 7th rib and thoracic spine with compression fracture of L3 07/28/2016 cirrhosis seen on abd/pelvis CT 06/20/2017 mammo - no acute path - Past Medical History Cardio/Vascular: Yes: CAD, HTN, Hyperlipdemia Pulmonary: Yes: COPD Psych: Yes: Anxiety, Depression Rheumatology: Yes: Fibromyalgia Endocrine: Yes: Diabetes Mellitus, Hypothyroidism - Alcohol/Substance Use Hx Alcohol Use: No History of Substance Use: reports: None - Smoking History Smoking history: Former smoker Have you smoked in the past 12 months: No If you are a former smoker, when did you quit?: 26 yrs ago - Social History ADL: Support Services History of Recent Travel: No Home Medications - Allergies Allergies/Adverse Reactions: Allergies Allergy/AdvReac Type Severity Reaction Status Date / Time Penicillins Allergy Intermediate Verified 12/01/18 18:07 - Home Medications Home Medications: Ambulatory Orders Atenolol [Tenormin -] 50 mg PO DAILY 05/18/14 Glipizide [Glipizide ER] 5 mg PO DAILY 05/06/15 Albuterol 0.083% Nebulizer Lindsey [Ventolin 0.083% Nebulizer Soln -] 1 amp NEB Q6H PRN #30 amp 11/28/18 Heparin - 5,000 unit SQ BID #60 vial 11/28/18 Pramipexole Di-HCl [Mirapex] 0.5 mg PO TID #60 tablet 11/28/18 traMADol HCL [Ultram -] 50 mg PO Q6H PRN #30 tablet MDD 4 11/28/18 Acetaminophen 650 mg PO Q6H 12/01/18 Menthol [Bengay Ultra Strength] 1 each TP DAILY 12/01/18 Review of Systems Unable to obtain ROS, reason: pt unable to provide Physical Exam Vital Signs: Vital Signs Temperature 98.6 F 12/02/18 18:30 Pulse Rate 86 12/02/18 18:30 Respiratory Rate 20 12/02/18 18:30 Blood Pressure 148/83 12/02/18 18:30 O2 Sat by Pulse Oximetry (%) 96 12/02/18 09:00 Constitutional: Yes: Calm Eyes: Yes: PERRL HENT: Yes: Atraumatic, Normocephalic, Other (dry mucous membranes) Neck: Yes: Trachea Midline. No: Thyromegaly Cardiovascular: Yes: Tachycardia Respiratory: Yes: On Nasal O2, Poor Air Entry Gastrointestinal: Yes: Soft, Abdomen, Obese, Other (well healed abdominal scar) Musculoskeletal: Yes: Other (spastic movements in all extermities spontaneously) Edema: No Peripheral Pulses WNL: Yes Integumentary: Yes: Other (bruising on lower abd on LLQ and below right knee) Neurological: Yes: Aphasia, Tremors, Unresponsive. No: Facial Droop Labs: CBC, BMP 12/02/18 07:00 12/02/18 21:45 Assessment/Plan 73 yr old woman with DM, HTN, lung nodule presents with AMS found to have leucocytosis, fever and hypercalcemia of unclear origin. r/o infectious source for fever/leucocytosis/AMS - repeat blood cx tonight for fever of 101.7rectally hypercalcemia could be from paraneoplastic syndrome vs bone mets, appreciate Heme-Onc input cxy without infiltrate on admission, unlikely to be pulm infection, awaiting repeat blood cx and ucx for alt infectious source, as per neuro, if no improvement with current abx, will need to r/o meningitis. check ammonia level given liver cirrhosis, TSH normal(unlikely myxedema) - Neurological - awake but nonresponsive, toxic metabolic encephalopathy undergoing investigation neurology consulted broad spec abx for [employer] infection coverage may need LP if no response to abx observe off pramipexole - Cardiovascular - tachycardia, likely due to fever IV tyelonol for fever, hydrate on atenolol at home but held now as pt not taking oral - Respiratory - currently maintaining 98% on 2lpm nasal cannula lung nodules ventolin nebs q6 prn for SOB - Renal- MARÍA with uptrending Cr and hyperNa likely pre-renal from hypoperfusion, as pt not currently taking po, if no improvement check renal sono being treated with IVF NS - Fluids, electrolytes, nutrition (FEN) Hypercalcemia from paraneoplastic vs bone met source, initial presentation, pt does not have a hx of hyperCa - treated with calcitonin BID SQ, zolendronic acid IV and hydration with NS @ 100cc/hr - check PTH level hypomag - repleted with IV 1 gm - Infectious disease, broad spec treatment until source can be identified: gram (+) cocci in clusters in bld cx from admission awaiting repeat blood cx, pt was re-cx due to new fever awaiting ucx r/o influenza IV acyclovir, rocephin and vancomycin - first dose of vanc given 12/02/2018 @2300 - Hematology/Oncology, uptrending leucocytosis, INR elevated INR treated with vit K bone scan and tumor markers ordered - Gastrointestinal - alk phos elevated ordered GGT to differentiate bone vs liver source of elevation - Endocrine - DM NPO due to pt mental status, BGM and NISS ACHS levemir 10units placed on hold while pt is npo - Prophylaxis - VTE heparin BID - GI: pepcid BID
[2018-12-03] MEDS: ACYCLOVIR INJECTION 750 MG in DEXTROSE 5%-WATER - 250 ML IVPB SCH ×2 (03:00→11:52)
[2018-12-03] MEDS ORDERED: DEXTROSE 5%-WATER 100 ML IVPB ONE (06:05)
[2018-12-03] MEDS: INSULIN SLIDING SCALE (NOVOLOG) 1 VIAL SQ SCH ×2 (06:20→16:52)
[2018-12-03] MEDS: CEFTRIAXONE 2 GM in DEXTROSE 5%-WATER 100 ML IVPB SCH ×2 (06:21→09:58)
[2018-12-03 06:28] LABS: BASO % 0.1 % (0-2.0); HEMATOCRIT 35.6 % (32.4-45.2); HEMOGLOBIN 11.2 GM/dL (10.7-15.3); LYMPH % 3.3 % (8-40); MCH 23.4 pg (25.7-33.7); MCHC 31.4 g/dl (32.0-36.0); MEAN CELL VOLUME 74.7 fl (80-96); MEAN PLT VOLUME 9.6 fl (7.5-11.1); MONO % 4.8 % (3.8-10.2); NEUT % 91.8 % (42.8-82.8); PLATELET COUNT 283 K/MM3 (134-434); RBC 4.77 M/mm3 (3.60-5.2); RDW 20.7 % (11.6-15.6); WHITE BLOOD COUNT 26.1 K/mm3 (4.0-10.0)
[2018-12-03 06:38] LABS: INR 1.42 (0.83-1.09); PROTHROMBIN TIME (PATIENT) 16.8 SEC (9.7-13.0)
[2018-12-03 07:02] LABS: ALBUMIN 3.1 g/dl (3.4-5.0); ALK PHOS 198 U/L (45-117); ANION GAP 13 MMOL/L (8-16); BILIRUBIN,TOTAL 0.9 mg/dL (0.2-1); BLOOD UREA NITROGEN 53 mg/dL (7-18); CALCIUM 12.1 mg/dL (8.5-10.1); CHLORIDE 112 mmol/L (98-107); CO2 22 mmol/L (21-32); CREATININE 2.7 mg/dL (0.55-1.3); GAMMA GLUTAMYL TRANSPEPTIDASE 291 U/L (5-85); GLUCOSE,RANDOM 276 mg/dL (74-106); POTASSIUM 4.6 mmol/L (3.5-5.1); SGOT/AST 25 U/L (15-37); SGPT/ALT 19 U/L (13-61); SODIUM 147 mmol/L (136-145); TOT PROT 7.2 g/dl (6.4-8.2)
[2018-12-03] MEDS ORDERED: ZOLEDRONIC ACID 4 MG in SODIUM CHLORIDE 100 ML IVPB ONE (09:37)
[2018-12-03] MEDS ORDERED: PT OWN MED DRAWER 7, Y5N ONE (09:41)
[2018-12-03] MEDS: MUPIROCIN 2% TOPICAL OINTMENT FOR DECOLONIZATION NS SCH ×2 (09:54→21:19)
[2018-12-03] MEDS: HEPARIN NA (PORCINE) 5,000 UNITS/ML 1ML VIAL SQ SCH ×2 (09:54→21:19)
[2018-12-03] MEDS: FAMOTIDINE 20 MG/50 ML IVPB 20 MG/50 ML MG IVPB SCH ×2 (09:57→21:20)
[2018-12-03] MEDS: CALCITONIN - SALMON SYNTHETIC 400 UNIT/2 ML VIAL SQ SCH ×2 (10:01→21:42)
[2018-12-03] MEDS: VANCOMYCIN 1 GRAM (PRE-DOCKED) 1,000 MG/250 ML BAG IVPB SCH (10:02)
[2018-12-03] MEDS ORDERED: SODIUM CHLORIDE 1,000 ML IV SCH (10:27)
[2018-12-03 11:04] LABS: ARTERIAL BLD GAS O2 SATURATION 93.1 % (90-98.9); ARTERIAL BLOOD GAS BASE EXCESS -2.6 meq/l (-2-2); ARTERIAL BLOOD GAS PCO2 34.5 mmHg (35-45)
[2018-12-03 11:06] LABS: ALLENS TEST POSITIVE
--- NOTE | 2018-12-03 11:07 | PN ---
Progress Note (short form) - Note Progress Note: Pt examined in ICU pt is lethargic just moans not responding to verbal stimuli NG+ Vital Signs - 24 hr 12/02/18 12/02/18 12/02/18 12:00 14:56 18:30 Temperature 98.2 F 98.6 F Pulse Rate 94 H 90 86 Respiratory 20 20 20 Rate Blood Pressure 162/71 152/83 148/83 O2 Sat by Pulse Oximetry (%) 12/02/18 12/03/18 12/03/18 21:00 00:00 02:00 Temperature 101.3 F H Pulse Rate 106 H 108 H Respiratory 27 H 27 H Rate Blood Pressure 160/92 139/75 O2 Sat by Pulse 96 Oximetry (%) 12/03/18 12/03/18 12/03/18 02:34 04:00 06:00 Temperature 101.7 F H Pulse Rate 121 H 111 H 107 H Respiratory 23 H 35 H 34 H Rate Blood Pressure 159/85 159/85 145/81 O2 Sat by Pulse Oximetry (%) 12/03/18 12/03/18 12/03/18 08:00 09:00 10:00 Temperature 98.8 F 98.8 F Pulse Rate 108 H 106 H Respiratory 34 H 34 H Rate Blood Pressure 142/80 137/70 O2 Sat by Pulse 98 Oximetry (%) Current Medications Generic Name Dose Route Start Last Admin Trade Name Freq PRN Reason Stop Dose Admin Acetaminophen 1,000 mg 12/01/18 23:21 Ofirmev Injection - IVPB Q6H PRN PAIN LEVEL 6-10 OR FEVER Albuterol Sulfate 1 amp 12/02/18 09:02 12/02/18 11:20 Ventolin 0.083% Nebulizer Soln - NEB 1 amp Q6H PRN Administration SHORT OF BREATH/WHEEZING Calcitonin 270 unit 12/02/18 22:45 12/03/18 10:01 Miacalcin Injection - SQ 12/05/18 21:59 270 unit BID NICHOLAS Administration Chlorhexidine Gluconate 1 applic 12/03/18 22:00 Hibiclens For Decolonization - TP HS NICHOLAS Heparin Sodium (Porcine) 5,000 unit 12/02/18 10:00 12/03/18 09:54 Heparin - SQ 5,000 unit BID NICHOLAS Administration Acyclovir 750 mg/ Dextrose 265 mls @ 265 mls/hr 12/02/18 22:00 12/03/18 03:00 IVPB 265 mls/hr Q8H-IV NICHOLAS Administration Ceftriaxone Sodium 2 gm/ 100 mls @ 200 mls/hr 12/02/18 22:00 12/03/18 09:58 Dextrose IVPB Not Given Q12H NICHOLAS Protocol Vancomycin HCl 1,000 mg in 250 mls @ 166.667 mls/hr 12/02/18 22:30 12/03/18 10:02 Vancomycin (Pre-Docked) IVPB 166.667 mls/hr Q12H NICHOLAS Administration Protocol Famotidine/Sodium Chloride 20 mg in 50 mls @ 100 mls/hr 12/03/18 10:00 09:57 Pepcid 20 Mg Premixed Ivpb - IVPB 100 mls/hr BID NICHOLAS Administration Sodium Chloride 1,000 mls @ 150 mls/hr 12/03/18 10:27 Normal Saline - IV ASDIR NICHOLAS Insulin Aspart 1 vial 12/02/18 16:30 12/03/18 06:20 Novolog Vial Sliding Scale - SQ 6 units BIDAC NICHOLAS Administration Protocol Insulin Detemir 10 units 12/02/18 22:00 12/02/18 23:51 Levemir Vial SQ 10 units HS NICHOLAS Administration Mupirocin 1 applic 12/03/18 10:00 12/03/18 09:54 Bactroban Ointment (For Decolonization) - NS 12/08/18 09:59 1 applic BID NICHOLAS Administration Laboratory Results - last 24 hr 12/02/18 12/02/18 12/02/18 07:00 16:09 21:45 WBC RBC Hgb Hct MCV MCH MCHC RDW Plt Count MPV Absolute Neuts (auto) Neutrophils % Neutrophils % (Manual) 88.9 H Band Neutrophils % 0.0 Lymphocytes % Lymphocytes % (Manual) 6.1 L D Monocytes % Monocytes % (Manual) 3 L Eosinophils % Eosinophils % (Manual) 0.0 D Basophils % Basophils % (Manual) 1.0 D Myelocytes % (Man) 0 D Promyelocytes % (Man) 0 Blast Cells % (Manual) 0 Nucleated RBC % Metamyelocytes 0 Hypochromia 0 Platelet Estimate Normal Polychromasia 0 Poikilocytosis 2+ Anisocytosis 1+ Microcytosis 1+ Macrocytosis 0 ESR PT with INR INR Anticoagulation Therapy O2 Delivery Device Oxygen Flow Rate Vent Mode Vent Rate Mechanical Rate Pressure Support Vent Sodium 148 H Potassium 4.5 Chloride 113 H Carbon Dioxide 23 Anion Gap 12 BUN 43 H Creatinine 2.0 H Creat Clearance w eGFR 24.49 POC Glucometer 253 Random Glucose 208 H Lactic Acid Calcium 12.5 H Magnesium 1.5 L Total Bilirubin GGT AST ALT Alkaline Phosphatase Ammonia Total Protein Albumin Influenza A (Rapid) Influenza B (Rapid) 12/02/18 12/03/18 12/03/18 23:49 01:25 01:25 WBC RBC Hgb Hct MCV MCH MCHC RDW Plt Count MPV Absolute Neuts (auto) Neutrophils % Neutrophils % (Manual) Band Neutrophils % Lymphocytes % Lymphocytes % (Manual) Monocytes % Monocytes % (Manual) Eosinophils % Eosinophils % (Manual) Basophils % Basophils % (Manual) Myelocytes % (Man) Promyelocytes % (Man) Blast Cells % (Manual) Nucleated RBC % Metamyelocytes Hypochromia Platelet Estimate Polychromasia Poikilocytosis Anisocytosis Microcytosis Macrocytosis ESR PT with INR INR Anticoagulation Therapy O2 Delivery Device Oxygen Flow Rate Vent Mode Vent Rate Mechanical Rate Pressure Support Vent Sodium Potassium Chloride Carbon Dioxide Anion Gap BUN Creatinine Creat Clearance w eGFR POC Glucometer 246 Random Glucose Lactic Acid 1.7 Calcium Magnesium Total Bilirubin GGT AST ALT Alkaline Phosphatase Ammonia 28.80 Total Protein Albumin Influenza A (Rapid) Influenza B (Rapid) 12/03/18 12/03/18 12/03/18 02:45 05:30 05:30 WBC 26.1 H RBC 4.77 Hgb 11.2 Hct 35.6 MCV 74.7 L MCH 23.4 L MCHC 31.4 L RDW 20.7 H Plt Count 283 D MPV 9.6 Absolute Neuts (auto) 23.9 H Neutrophils % 91.8 H Neutrophils % (Manual) Band Neutrophils % Lymphocytes % 3.3 L D Lymphocytes % (Manual) Monocytes % 4.8 Monocytes % (Manual) Eosinophils % 0.0 D Eosinophils % (Manual) Basophils % 0.1 Basophils % (Manual) Myelocytes % (Man) Promyelocytes % (Man) Blast Cells % (Manual) Nucleated RBC % 0 Metamyelocytes Hypochromia Platelet Estimate Polychromasia Poikilocytosis Anisocytosis Microcytosis Macrocytosis ESR PT with INR INR Anticoagulation Therapy O2 Delivery Device Oxygen Flow Rate Vent Mode Vent Rate Mechanical Rate Pressure Support Vent Sodium 147 H Potassium 4.6 Chloride 112 H Carbon Dioxide 22 Anion Gap 13 BUN 53 H Creatinine 2.7 H Creat Clearance w eGFR 17.32 POC Glucometer Random Glucose 276 H Lactic Acid Calcium 12.1 H Magnesium Total Bilirubin 0.9 GGT 291 H AST 25 ALT 19 Alkaline Phosphatase 198 H Ammonia Total Protein 7.2 Albumin 3.1 L Influenza A (Rapid) Negative Influenza B (Rapid) Negative 12/03/18 12/03/18 12/03/18 05:30 05:30 10:55 WBC RBC Hgb Hct MCV MCH MCHC RDW Plt Count MPV Absolute Neuts (auto) Neutrophils % Neutrophils % (Manual) Band Neutrophils % Lymphocytes % Lymphocytes % (Manual) Monocytes % Monocytes % (Manual) Eosinophils % Eosinophils % (Manual) Basophils % Basophils % (Manual) Myelocytes % (Man) Promyelocytes % (Man) Blast Cells % (Manual) Nucleated RBC % Metamyelocytes Hypochromia Platelet Estimate Polychromasia Poikilocytosis Anisocytosis Microcytosis Macrocytosis ESR 36 H PT with INR 16.80 H INR 1.42 H Anticoagulation Therapy No Result Required. O2 Delivery Device No Result Required. Oxygen Flow Rate No Result Required. Vent Mode No Result Required. Vent Rate No Result Required. Mechanical Rate No Result Required. Pressure Support Vent No Result Required. Sodium Potassium Chloride Carbon Dioxide Anion Gap BUN Creatinine Creat Clearance w eGFR POC Glucometer Random Glucose Lactic Acid Calcium Magnesium Total Bilirubin GGT AST ALT Alkaline Phosphatase Ammonia Total Protein Albumin Influenza A (Rapid) Influenza B (Rapid) S1 S2 RRR Oral dry lungs no rales, ronchi Abd- soft, NT No edema PLAN IV fluids ct abd/pelvis ordered All consults noted ICU monitoring prognosis guarded broad spectrum antibiotics ID eval Problem List - Problems (1) Altered mental status Code(s): R41.82 - ALTERED MENTAL STATUS, UNSPECIFIED Qualifiers: Altered mental status type: unspecified Qualified Code(s): R41.82 - Altered mental status, unspecified (2) CAD (coronary artery disease) Code(s): I25.10 - ATHSCL HEART DISEASE OF [place] CORONARY ARTERY W/O ANG PCTRS (3) Cognitive and neurobehavioral dysfunction Code(s): F09 - UNSP MENTAL DISORDER DUE TO KNOWN PHYSIOLOGICAL CONDITION; F07.89 - OTH PERSONALITY & BEHAVRL DISORD DUE TO KNOWN PHYSIOL COND (4) Diabetes Code(s): E11.9 - TYPE 2 DIABETES MELLITUS WITHOUT COMPLICATIONS (5) HLD (hyperlipidemia) Code(s): E78.5 - HYPERLIPIDEMIA, UNSPECIFIED (6) Hypercalcemia Code(s): E83.52 - HYPERCALCEMIA (7) Hypothyroidism Code(s): E03.9 - HYPOTHYROIDISM, UNSPECIFIED (8) Leukocytosis Code(s): D72.829 - ELEVATED WHITE BLOOD CELL COUNT, UNSPECIFIED Qualifiers: Leukocytosis type: unspecified Qualified Code(s): D72.829 - Elevated white blood cell count, unspecified
--- NOTE | 2018-12-03 12:11 | PN ---
Physical Exam: SUBJECTIVE: Patient seen and examined, Awake but only responsive to painful stimuli. No acute events overnight OBJECTIVE: Vital Signs Period Temp Pulse Resp BP Sys/Barrera Pulse Ox Last 24 Hr 98.2 F-101.7 F 86-121 20-35 137-162/70-92 96-98 GENERAL: Lethargic but arousable to painful stimuli, Does not follow commands HEAD: NCAT EYES: PERRL ENT: Moist mucous membranes NECK: No JVD LUNGS: Diminished breath sounds at the bases, no wheezes HEART: Regular rate and rhythm, S1, S2 without murmur ABDOMEN: Rigid, Midline healed abdominal scar, mildly distended, + bowel sounds , no guarding EXTREMITIES: 2+ pulses, no edema. NEUROLOGICAL: Lethargic, does not follow commands SKIN: Warm, dry Laboratory Results - last 24 hr 12/02/18 12/02/18 12/02/18 07:00 16:09 21:45 WBC RBC Hgb Hct MCV MCH MCHC RDW Plt Count MPV Absolute Neuts (auto) Neutrophils % Neutrophils % (Manual) 88.9 H Band Neutrophils % 0.0 Lymphocytes % Lymphocytes % (Manual) 6.1 L D Monocytes % Monocytes % (Manual) 3 L Eosinophils % Eosinophils % (Manual) 0.0 D Basophils % Basophils % (Manual) 1.0 D Myelocytes % (Man) 0 D Promyelocytes % (Man) 0 Blast Cells % (Manual) 0 Nucleated RBC % Metamyelocytes 0 Hypochromia 0 Platelet Estimate Normal Polychromasia 0 Poikilocytosis 2+ Anisocytosis 1+ Microcytosis 1+ Macrocytosis 0 ESR PT with INR INR Anticoagulation Therapy Puncture Site ABG pH ABG pCO2 at Pt Temp ABG pO2 at Pt Temp ABG HCO3 ABG O2 Sat (Measured) ABG O2 Content ABG Base Excess Fred Test O2 Delivery Device Oxygen Flow Rate Vent Mode Vent Rate Mechanical Rate Pressure Support Vent Sodium 148 H Potassium 4.5 Chloride 113 H Carbon Dioxide 23 Anion Gap 12 BUN 43 H Creatinine 2.0 H Creat Clearance w eGFR 24.49 POC Glucometer 253 Random Glucose 208 H Lactic Acid Calcium 12.5 H Magnesium 1.5 L Total Bilirubin GGT AST ALT Alkaline Phosphatase Ammonia Total Protein Albumin Influenza A (Rapid) Influenza B (Rapid) 12/02/18 12/03/18 12/03/18 23:49 01:25 01:25 WBC RBC Hgb Hct MCV MCH MCHC RDW Plt Count MPV Absolute Neuts (auto) Neutrophils % Neutrophils % (Manual) Band Neutrophils % Lymphocytes % Lymphocytes % (Manual) Monocytes % Monocytes % (Manual) Eosinophils % Eosinophils % (Manual) Basophils % Basophils % (Manual) Myelocytes % (Man) Promyelocytes % (Man) Blast Cells % (Manual) Nucleated RBC % Metamyelocytes Hypochromia Platelet Estimate Polychromasia Poikilocytosis Anisocytosis Microcytosis Macrocytosis ESR PT with INR INR Anticoagulation Therapy Puncture Site ABG pH ABG pCO2 at Pt Temp ABG pO2 at Pt Temp ABG HCO3 ABG O2 Sat (Measured) ABG O2 Content ABG Base Excess Fred Test O2 Delivery Device Oxygen Flow Rate Vent Mode Vent Rate Mechanical Rate Pressure Support Vent Sodium Potassium Chloride Carbon Dioxide Anion Gap BUN Creatinine Creat Clearance w eGFR POC Glucometer 246 Random Glucose Lactic Acid 1.7 Calcium Magnesium Total Bilirubin GGT AST ALT Alkaline Phosphatase Ammonia 28.80 Total Protein Albumin Influenza A (Rapid) Influenza B (Rapid) 12/03/18 12/03/18 12/03/18 02:45 05:30 05:30 WBC 26.1 H RBC 4.77 Hgb 11.2 Hct 35.6 MCV 74.7 L MCH 23.4 L MCHC 31.4 L RDW 20.7 H Plt Count 283 D MPV 9.6 Absolute Neuts (auto) 23.9 H Neutrophils % 91.8 H Neutrophils % (Manual) Band Neutrophils % Lymphocytes % 3.3 L D Lymphocytes % (Manual) Monocytes % 4.8 Monocytes % (Manual) Eosinophils % 0.0 D Eosinophils % (Manual) Basophils % 0.1 Basophils % (Manual) Myelocytes % (Man) Promyelocytes % (Man) Blast Cells % (Manual) Nucleated RBC % 0 Metamyelocytes Hypochromia Platelet Estimate Polychromasia Poikilocytosis Anisocytosis Microcytosis Macrocytosis ESR PT with INR INR Anticoagulation Therapy Puncture Site ABG pH ABG pCO2 at Pt Temp ABG pO2 at Pt Temp ABG HCO3 ABG O2 Sat (Measured) ABG O2 Content ABG Base Excess Fred Test O2 Delivery Device Oxygen Flow Rate Vent Mode Vent Rate Mechanical Rate Pressure Support Vent Sodium 147 H Potassium 4.6 Chloride 112 H Carbon Dioxide 22 Anion Gap 13 BUN 53 H Creatinine 2.7 H Creat Clearance w eGFR 17.32 POC Glucometer Random Glucose 276 H Lactic Acid Calcium 12.1 H Magnesium Total Bilirubin 0.9 GGT 291 H AST 25 ALT 19 Alkaline Phosphatase 198 H Ammonia Total Protein 7.2 Albumin 3.1 L Influenza A (Rapid) Negative Influenza B (Rapid) Negative 12/03/18 12/03/18 12/03/18 05:30 05:30 10:55 WBC RBC Hgb Hct MCV MCH MCHC RDW Plt Count MPV Absolute Neuts (auto) Neutrophils % Neutrophils % (Manual) Band Neutrophils % Lymphocytes % Lymphocytes % (Manual) Monocytes % Monocytes % (Manual) Eosinophils % Eosinophils % (Manual) Basophils % Basophils % (Manual) Myelocytes % (Man) Promyelocytes % (Man) Blast Cells % (Manual) Nucleated RBC % Metamyelocytes Hypochromia Platelet Estimate Polychromasia Poikilocytosis Anisocytosis Microcytosis Macrocytosis ESR 36 H PT with INR 16.80 H INR 1.42 H Anticoagulation Therapy No Result Required. Puncture Site Right radial ABG pH 7.40 ABG pCO2 at Pt Temp 34.5 L ABG pO2 at Pt Temp 72.0 D ABG HCO3 21.1 L ABG O2 Sat (Measured) 93.1 ABG O2 Content 13.8 L ABG Base Excess -2.6 L Fred Test Positive O2 Delivery Device No Result Required. Oxygen Flow Rate Room air Vent Mode No Result Required. Vent Rate No Result Required. Mechanical Rate No Result Required. Pressure Support Vent No Result Required. Sodium Potassium Chloride Carbon Dioxide Anion Gap BUN Creatinine Creat Clearance w eGFR POC Glucometer Random Glucose Lactic Acid Calcium Magnesium Total Bilirubin GGT AST ALT Alkaline Phosphatase Ammonia Total Protein Albumin Influenza A (Rapid) Influenza B (Rapid) Microbiology 12/01/18 19:04 Urine - Urine - Catheterized Urine Culture - Preliminary Non Lactose Fermenting Gnb Non Lactose Fermenting Gnb#2 12/01/18 18:40 Blood - Peripheral Venous Blood Culture - Preliminary Pending Organism 12/01/18 19:04 Blood - Peripheral Venous Blood Culture - Preliminary NO GROWTH OBTAINED AFTER 24 HOURS, INCUBATION TO CONTINUE FOR 4 DAYS. Active Medications Acetaminophen (Ofirmev Injection -) 1,000 mg IVPB Q6H PRN PRN Reason: PAIN LEVEL 6-10 OR FEVER Albuterol Sulfate (Ventolin 0.083% Nebulizer Soln -) 1 amp NEB Q6H PRN PRN Reason: SHORT OF BREATH/WHEEZING Last Admin: 12/02/18 11:20 Dose: 1 amp Calcitonin (Miacalcin Injection -) 270 unit SQ BID [facility] Stop: 12/05/18 21:59 Last Admin: 12/03/18 10:01 Dose: 270 unit Chlorhexidine Gluconate (Hibiclens For Decolonization -) 1 applic TP HS [facility] Heparin Sodium (Porcine) (Heparin -) 5,000 unit SQ BID [facility] Last Admin: 12/03/18 09:54 Dose: 5,000 unit Acyclovir 750 mg/ Dextrose 265 mls @ 265 mls/hr IVPB Q8H-IV [facility] Last Admin: 12/03/18 03:00 Dose: 265 mls/hr Ceftriaxone Sodium 2 gm/ (Dextrose) 100 mls @ 200 mls/hr IVPB Q12H [facility]; Protocol Last Admin: 12/03/18 09:58 Dose: Not Given Vancomycin HCl (Vancomycin (Pre-Docked)) 1,000 mg in 250 mls @ 166.667 mls/hr IVPB Q12H [facility]; Protocol Last Admin: 12/03/18 10:02 Dose: 166.667 mls/hr Famotidine/Sodium Chloride (Pepcid 20 Mg Premixed Ivpb -) 20 mg in 50 mls @ 100 mls/hr IVPB BID [facility] Last Admin: 12/03/18 09:57 Dose: 100 mls/hr Sodium Chloride (Normal Saline -) 1,000 mls @ 150 mls/hr IV ASDIR [facility] Insulin Aspart (Novolog Vial Sliding Scale -) 1 vial SQ BIDAC [facility]; Protocol Last Admin: 12/03/18 06:20 Dose: 6 units Insulin Detemir (Levemir Vial) 10 units SQ [facility] Last Admin: 12/02/18 23:51 Dose: 10 units Mupirocin (Bactroban Ointment (For Decolonization) -) 1 applic NS BID [facility] Stop: 12/08/18 09:59 Last Admin: 12/03/18 09:54 Dose: 1 applic ASSESSMENT/PLAN: 73 y/o F with PMHx of DM, HTN, Parkinson's disease, COPD, Appendiceal adenocarcinoma, RLL lung nodule was BIBEMA from [facility] due to AMS, was evaluated by Neuro and will be observed in ICU for concerns of Meningitis. #Neuro Toxic metabolic encephalopathy due to infection vs Delirium vs Hypercalcemia; R/ O Meningitis Hx of Parkinsons Disease -LA 1.7 -ABG this AM reveals pCO2 34.5 -CT Head without contrast: No evidence of acute intracranial hemorrhage, edema, midline shift, mass effect, or skull fracture. No CT evidence of acute territorial ischemic changes. -Neurology (Dr. Roman) consulted, appreciate rec's -LP deferred as per family request -Hold home dose Pramipexole #Hematology/Oncology RLL lung mass, LLL lung nodule in the setting of Hypercalcemia Elevated INR -CXR: Right lower lung mass which was demonstrated on CT on 11/01/2018. This mass measures approximately 2.0 x 2.2 cm. 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 Right lower lung mass previously noted -Urine and Blood cx pending -IV Tylenol for fevers -D/C Acyclovir, Ceftriaxone -Continue Vancomycin, Meropenem -Continue NS @ 150 mls/hr -ID (Dr. Salas) consulted #Cardio Tachycardia likely response to fever Hx of HTN -EKG NSR, VR 60, QTc 392 -Hold home dose Atenolol #Pulmonary Previously noted lung nodules Hx of COPD -Will require outpatient follow up -Continue Albuterol Nebulizer Q6H PRN -Supplemental O2 PRN to main SpO2 88-92% #Renal MARÍA HyperNatremia -BUN 53, Cr 2.7 -Obstruction (B/L [place]) vs Pre-renal due to Hypoperfusion vs Abx adverse effects -Continue NS @ 150 mls/hr -Renal/Kidney US pending -Continue to monitor #GI Elevated Alk Phos; AST/ALT WNL Hx of Appendiceal adenocarcinoma -GGT: 291 -NG Tube placed -CT A/P with Oral contrast pending #Endocrine Hx of DM -BGM ISS ACHS -Hold oral hypoglycemics #FEN -NS @ 150 mls/hr -Hypercalcemia as above; Replete lytes PRN -NPO #PPx -DVT: Heparin -GI: Famotidine Dispo: Continue to monitor in ICU Code status: DNR/DNI by family at bedside Visit type - Emergency Visit Emergency Visit: Yes ED Registration Date: 12/01/18 Care time: The patient presented to the Emergency Department on the above date and was hospitalized for further evaluation of their emergent condition. - New Patient This patient is new to me today: Yes Date on this admission: 12/03/18 - Critical Care Critical Care patient: Yes Total Critical Care Time (in minutes): 36 Critical Care Statement: The care of this patient involved high complexity decision making to prevent further life threatening deterioration of the patient 's condition and/or to evaluate & treat vital organ system(s) failure or risk of failure.
--- NOTE | 2018-12-03 12:27 | PN ---
Teaching Attending Note Name of Resident: Rupa Jacinto ATTENDING PHYSICIAN STATEMENT I saw and evaluated the patient. I reviewed the resident's note and discussed the case with the resident. I agree with the resident's findings and plan as documented. SUBJECTIVE: Pt seen and examined in the ICU. Remains altered, restless. Febrile overnight. OBJECTIVE: Vital Signs Period Temp Pulse Resp BP Sys/Barrera Pulse Ox Last 24 Hr 98.2 F-101.7 F 86-121 20-35 137-160/70-92 96-98 Intake & Output 11/30/18 12/01/18 12/02/18 12/03/18 23:59 23:59 23:59 23:59 Intake Total 2400 1140 Output Total 440 Balance -440 2400 1140 Weight 68.946 kg 68.039 kg Gen: tachypneic, restless Heart: RRR Lung: decreased breath sounds at the bases Abd: soft but with diffuse guarding Ext: no edema CBC, BMP 12/03/18 05:30 12/03/18 05:30 Active Medications Acetaminophen (Ofirmev Injection -) 1,000 mg IVPB Q6H PRN PRN Reason: PAIN LEVEL 6-10 OR FEVER Albuterol Sulfate (Ventolin 0.083% Nebulizer Soln -) 1 amp NEB Q6H PRN PRN Reason: SHORT OF BREATH/WHEEZING Last Admin: 12/02/18 11:20 Dose: 1 amp Calcitonin (Miacalcin Injection -) 270 unit SQ BID [facility] Stop: 12/05/18 21:59 Last Admin: 12/03/18 10:01 Dose: 270 unit Chlorhexidine Gluconate (Hibiclens For Decolonization -) 1 applic TP HS [facility] Heparin Sodium (Porcine) (Heparin -) 5,000 unit SQ BID [facility] Last Admin: 12/03/18 09:54 Dose: 5,000 unit Acyclovir 750 mg/ Dextrose 265 mls @ 265 mls/hr IVPB Q8H-IV [facility] Last Admin: 12/03/18 11:52 Dose: 265 mls/hr Ceftriaxone Sodium 2 gm/ (Dextrose) 100 mls @ 200 mls/hr IVPB Q12H [facility]; Protocol Last Admin: 12/03/18 09:58 Dose: Not Given Vancomycin HCl (Vancomycin (Pre-Docked)) 1,000 mg in 250 mls @ 166.667 mls/hr IVPB Q12H [facility]; Protocol Last Admin: 12/03/18 10:02 Dose: 166.667 mls/hr Famotidine/Sodium Chloride (Pepcid 20 Mg Premixed Ivpb -) 20 mg in 50 mls @ 100 mls/hr IVPB BID [facility] Last Admin: 12/03/18 09:57 Dose: 100 mls/hr Sodium Chloride (Normal Saline -) 1,000 mls @ 150 mls/hr IV ASDIR [facility] Insulin Aspart (Novolog Vial Sliding Scale -) 1 vial SQ [facility]IDAC [facility]; Protocol Last Admin: 12/03/18 06:20 Dose: 6 units Insulin Detemir (Levemir Vial) 10 units SQ HS [facility] Last Admin: 12/02/18 23:51 Dose: 10 units Mupirocin (Bactroban Ointment (For Decolonization) -) 1 applic NS BID [facility] Stop: 12/08/18 09:59 Last Admin: 12/03/18 09:54 Dose: 1 applic ASSESSMENT AND PLAN: Altered Mental Status Sepsis r/o Acute Meningitis r/o Acute Abdominal Process r/o Bacteremia Acute Kidney Injury Hypercalcemia Lung Nodule suspicious for malignancy DM - continue broad spectrum antibiotics - LP per neuro - CT A/P with oral contrast - IVF - monitor urine output, creatinine - bladder/renal sono - continue calcitonin - monitor calcium, start bisphosphonates if no improvement - aspiration precautions - check ABG - may need intubation for airway protection - DVT prophylaxis - continue ICU monitoring critical care time spent in reviewing chart, evaluating patient and formulating plan 35 min
[2018-12-03 12:29] LABS: ANISOCYTOSIS 1+; MACROCYTOSIS 0; PLATELET ESTIMATE NORMAL; TARGET CELLS 1+
--- NOTE | 2018-12-03 13:21 | PN ---
Progress Note, Physician History of Present Illness: patient seen and examined at bedside. still lethargic and unresponsive. Overnight events noted. Now in ICU for worsening mental status and possible meningitis. - Current Medication List Current Medications: Active Medications Acetaminophen (Ofirmev Injection -) 1,000 mg IVPB Q6H PRN PRN Reason: PAIN LEVEL 6-10 OR FEVER Albuterol Sulfate (Ventolin 0.083% Nebulizer Soln -) 1 amp NEB Q6H PRN PRN Reason: SHORT OF BREATH/WHEEZING Last Admin: 12/02/18 11:20 Dose: 1 amp Calcitonin (Miacalcin Injection -) 270 unit SQ BID [facility] Stop: 12/05/18 21:59 Last Admin: 12/03/18 10:01 Dose: 270 unit Chlorhexidine Gluconate (Hibiclens For Decolonization -) 1 applic TP HS [facility] Heparin Sodium (Porcine) (Heparin -) 5,000 unit SQ BID [facility] Last Admin: 12/03/18 09:54 Dose: 5,000 unit Acyclovir 750 mg/ Dextrose 265 mls @ 265 mls/hr IVPB Q8H-IV [facility] Last Admin: 12/03/18 11:52 Dose: 265 mls/hr Ceftriaxone Sodium 2 gm/ (Dextrose) 100 mls @ 200 mls/hr IVPB Q12H [facility]; Protocol Last Admin: 12/03/18 09:58 Dose: Not Given Vancomycin HCl (Vancomycin (Pre-Docked)) 1,000 mg in 250 mls @ 166.667 mls/hr IVPB Q12H [facility]; Protocol Last Admin: 12/03/18 10:02 Dose: 166.667 mls/hr Famotidine/Sodium Chloride (Pepcid 20 Mg Premixed Ivpb -) 20 mg in 50 mls @ 100 mls/hr IVPB BID [facility] Last Admin: 12/03/18 09:57 Dose: 100 mls/hr Sodium Chloride (Normal Saline -) 1,000 mls @ 150 mls/hr IV ASDIR [facility] Insulin Aspart (Novolog Vial Sliding Scale -) 1 vial SQ BIDAC [facility]; Protocol Last Admin: 12/03/18 06:20 Dose: 6 units Insulin Detemir (Levemir Vial) 10 units SQ HS [facility] Last Admin: 12/02/18 23:51 Dose: 10 units Mupirocin (Bactroban Ointment (For Decolonization) -) 1 applic NS BID [facility] Stop: 12/08/18 09:59 Last Admin: 12/03/18 09:54 Dose: 1 applic - Objective Vital Signs: Vital Signs Temperature 98.8 F 12/03/18 10:00 Pulse Rate 104 H 12/03/18 12:00 Respiratory Rate 32 H 12/03/18 12:00 Blood Pressure 101/61 12/03/18 12:00 O2 Sat by Pulse Oximetry (%) 98 12/03/18 09:00 Cardiovascular: Yes: Regular Rate and Rhythm, S1, S2 Respiratory: Yes: CTA Bilaterally Gastrointestinal: Yes: Normal Bowel Sounds, Tenderness (grimace upon palpation) Edema: No Neurological: Yes: Unresponsive. No: Alert, Oriented Labs: CBC, BMP 12/03/18 05:30 12/03/18 05:30 INR, PTT INR 1.42 (0.83-1.09) H 12/03/18 05:30 Impression/Plan Impression/Plan: 73 y/o F [facility] resident w/ h/o HTN, COPD, DM, HLD, CAD, FM, Hypothyroidism, Depression, Ruptured Appendix 2/2 Appendiceal adenoCA admitted for altered mental status , now with incidental finding of lung mass. altered mental status - toxic metabolic vs. hypercalcemia - being worked up for sepsis, r/o meningitis - cont. 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 bone mets from appendiceal adenocarcinoma - s/p zolendronic acid 3mg IV, now on calcinotin 270 units bid - cont. NS 150cc/hr - hold bone scan for outpatient workup Curtis Ramesh PGY3 Visit type - Emergency Visit Emergency Visit: No - New Patient This patient is new to me today: No - Critical Care Critical Care patient: Yes Total Critical Care Time (in minutes): 35 Critical Care Statement: The care of this patient involved high complexity decision making to prevent further life threatening deterioration of the patient 's condition and/or to evaluate & treat vital organ system(s) failure or risk of failure. - Discharge Referral Referred to [facility] Med P.C.: No
--- NOTE | 2018-12-03 15:38 | CON.PSY ---
Psychiatry Consult Chief Complaint: spoke to staff, family just signed DNR, [facility] Has OMS< Parkinsons disease and CA and UTI. Symptoms: reports: Memory Impairment, Attention Deficit - Previous Psychiatric Treatment Outpatient: None Inpatient: None - Previous Substance Abuse Treatment Outpatient: None Inpatient: None - Current Medications Current Medications: Active Medications Acetaminophen (Ofirmev Injection -) 1,000 mg IVPB Q6H PRN PRN Reason: PAIN LEVEL 6-10 OR FEVER Albuterol Sulfate (Ventolin 0.083% Nebulizer Soln -) 1 amp NEB Q6H PRN PRN Reason: SHORT OF BREATH/WHEEZING Last Admin: 12/02/18 11:20 Dose: 1 amp Calcitonin (Miacalcin Injection -) 270 unit SQ BID [facility] Stop: 12/05/18 21:59 Last Admin: 12/03/18 10:01 Dose: 270 unit Chlorhexidine Gluconate (Hibiclens For Decolonization -) 1 applic TP HS [facility] Heparin Sodium (Porcine) (Heparin -) 5,000 unit SQ BID [facility] Last Admin: 12/03/18 09:54 Dose: 5,000 unit Famotidine/Sodium Chloride (Pepcid 20 Mg Premixed Ivpb -) 20 mg in 50 mls @ 100 mls/hr IVPB BID [facility] Last Admin: 12/03/18 09:57 Dose: 100 mls/hr Sodium Chloride (Normal Saline -) 1,000 mls @ 150 mls/hr IV ASDIR [facility] Last Admin: 12/03/18 10:40 Dose: 150 mls/hr Insulin Aspart (Novolog Vial Sliding Scale -) [facility]; [facility] Last Admin: 12/03/18 06:20 Dose: 6 units Insulin Detemir (Levemir Vial) 10 units SQ [facility] Last Admin: 12/02/18 23:51 Dose: 10 units Mupirocin (Bactroban Ointment (For Decolonization) -) 1 applic NS BID [facility] Stop: 12/08/18 09:59 Last Admin: 12/03/18 09:54 Dose: 1 applic - Allergies Allergies: Allergies Allergy/AdvReac Type Severity Reaction Status Date / Time Penicillins Allergy Intermediate Verified 12/01/18 18:07 - Current Living Status Usual Living Arrangement: Correction - Current Mental Status Evaluation Appearance: Disheveled Attitude: Guarded - Affect Affect: Constrictive Appropriateness: Not Appropriate - Mood Mood: Other - Speech/Language Expressive: Delayed - Psychomotor Activity Psychomotor Activity: Slowed - Thought Process Thought Process: Circumstantial - Thought Content Hallucinations: Absent Delusions: Absent - Self Perception Self Perception: Depersonalization - Cognition Attention: Diminished Memory, Immediate Recall: Impaired Memory, Short Term: 0/3 Memory, Remote with Promptin/3 - Concentration Serial Sevens Intact: No Simple Calculations Intact: No - Abstraction Proverb Interpretation: Impaired Judgement: Severely Impaired - Insight Insight: Impaired - Impulse Control Impulse Control: Minimally Impaired - Suicidal Ideation Suicidal Ideation: No - Homicidal Ideation Homicidal Ideation: No Assessment/Plan 1) No need for any psych meds.
--- NOTE | 2018-12-03 15:40 | PN ---
Progress Note (short form) - Note Progress Note: CCM Discussed with radiology, CT A/P done showing large amount of air in the bladder despite mcneil placement consistent with emphysemtaous cystitis. CT also showing numerous lytic lesions which likely explains her hypercalcemia. Discussed findings with sister/HCP Beatriz CT findings and likely metastatic disease. She understands the results and would like to continue medical treatment but wishes to make the pt DNR/DNI according to their own prior personal discussions. Will obtain urology input in regards to the emphysematous cystitis if there is any surgical options or if medical therapy is the only option. Cayetano Roche MD
[2018-12-03 16:02] LABS: ANION GAP 13 MMOL/L (8-16); BLOOD UREA NITROGEN 59 mg/dL (7-18); CALCIUM 10.5 mg/dL (8.5-10.1); CHLORIDE 108 mmol/L (98-107); CO2 21 mmol/L (21-32); CREATININE 2.8 mg/dL (0.55-1.3); GLUCOSE,RANDOM 286 mg/dL (74-106); SODIUM 142 mmol/L (136-145)
--- NOTE | 2018-12-03 16:04 | PN ---
Progress Note (short form) - Note Progress Note: ID CONSULT DICTATED ALTERED MENTAL STATUS, PROBABLE TOXIC METABOLIC ENCEPHALOPATHY HYPERCALCEMIA METASTATIC CA ? EMPHYSEMATOUS CYSTITIS UTI, POSSIBLE SEPSIS SECONDARY TO UTI RENAL FAILURE +BC ? SIGNIFICANCE PCN ALLERGY AWAIT C/S VANCOMYCIN/ MEROPENEM ADJUSTED FOR RENAL FAILURE PROGNOSIS POOR DISCUSSED WITH FAMILY AT BEDSIDE CRITICAL CARE TIME 35MIN
--- NOTE | 2018-12-03 17:17 | CONS ---
DATE OF CONSULTATION: DATE OF DICTATION: 12/03/2018 INFECTIOUS DISEASE CONSULTATION The patient is a 73-year-old female with a recently diagnosed lung mass, presumed malignancy, now evaluated for sepsis. History was obtained from the chart, as she cannot give a history secondary to her mental state. She was recently hospitalized at [facility] from November 25 through . She was evaluated for acute kidney injury. She was transferred to a [facility] facility where her initial clinical course was uncomplicated. Family members report that she had an abrupt change in her mental status while at the nursing facility. She was taken by ambulance to the emergency room where she was noted to be tachypneic. White blood cell count elevated at 14,000. A CAT scan of the head showed no acute infarct or bleed, but did show left maxillary sinusitis. She was also noted to have hyperkalemia. Cultures were obtained, and she was empirically treated with Levaquin for possible sepsis/toxic metabolic encephalopathy. She was seen in consultation by Neurology. At the present time, she is unresponsive. She has somewhat labored breathing. A CAT scan of the abdomen and pelvis was performed and shows air within the urinary bladder wall bilaterally with possible small amount of extraluminal air within the adjacent extraperitoneal space, moderate urinary bladder distention was noted. There was also interval development of soft tissue thickening within the left pericolic space at the level of the [id number] abdomen, mild nonspecific concentric wall thickening mid aspect of the descending colon possible acute diverticulitis versus neoplastic disease. There is also [id number] bilateral hydronephrosis, interval development of multiple thoracolumbar spine and bilateral pelvic osteolytic lesions suspicious for metastatic neoplastic disease. There is a pathological lumbar 3 vertebral body compression fracture. Her clinical course now complicated by worsening renal function. She has had fever and a markedly elevated white blood cell count. According to the neurologist's notes, the patient has had a progressive decline in her neurological function over the past 3 months with increasing pain, shaking, and gait disturbance. She was being evaluated for possible early dementia/parkinsonism. PAST MEDICAL HISTORY: Positive for right lung mass, presumed malignancy, diabetes mellitus, hypertension, hyperlipidemia, hypothyroidism, depression, COPD, coronary artery disease. ALLERGIES: PENICILLIN-NATURE OF THIS ALLERGY NOT KNOWN. MEDICATIONS: 1. Atenolol. 2. Glipizide. 3. Heparin. 4. Tramadol. PAST SURGICAL HISTORY: Status post adenocarcinoma of the appendix. SOCIAL HISTORY: Patient resides in the community, was recently transferred to a [facility] facility for [facility]. She was a former smoker. SYSTEM REVIEW: Neurologic: Positive for obtundation. Cardiac: Negative chest pain or palpitations. Respiratory: No reported recent cough or sputum production. Positive lung mass. Gastrointestinal: No reported vomiting or diarrhea. Genitourinary: Positive for urinary tract infection. LABORATORY DATA: White count 26.1, and 85% neutrophils, 3 lymphocytes, 4 monocytes, hematocrit 35.6, platelet count 283. BUN 53, creatinine 2.7. Urinalysis 8 white cells. Influenza swab negative. Blood cultures with gram-positive cocci in clusters in 1 bottle. Non-lactose biztalk consultant in the urine. Chest x-ray: Right lung mass. No infiltrate. Abdominal and pelvic CAT scan as noted. PHYSICAL EXAMINATION: General: She is obtunded. Breathing is slightly labored. Vital Signs: Temperature 99.7, T-max 101.3, blood pressure 131/62, pulse 102 regular, respirations 32 per minute. Eyes: Sclerae anicteric. Heart: Sounds S1, S2. Lungs: Decreased breath sounds bilaterally. Abdomen: Soft, obese. No suprapubic or flank tenderness. Extremities: 1+ edema. IMPRESSION: 1. Altered mental status probable toxic metabolic encephalopathy. 2. 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 3. Metastatic carcinoma. 4. Possible emphysematous cystitis. 5. Urinary tract infection, possible sepsis secondary to urinary tract infection. 6. Renal failure. 7. Positive blood culture of unclear significance. Await identification of blood and urine isolates. Will adjust antibiotics for renal failure. Patient has received doses of vancomycin, will hold enlight of deteriorating renal function and obtain random level in the morning. Will give meropenem adjusted for renal failure for possible gram-negative sepsis secondary to UTI. Prognosis is poor. Case discussed with the family at the bedside. CRITICAL CARE TIME: Spent 35 minutes. MELISA HAYS M.D. [id number]
[2018-12-03] MEDS: MEROPENEM 500 MG in DEXTROSE 5%-WATER 100 ML IVPB SCH (18:22)
--- NOTE | 2018-12-03 19:04 | PN ---
Teaching Attending Note Name of Resident: Curtis Ramesh ATTENDING PHYSICIAN STATEMENT I saw and evaluated the patient. I reviewed the resident's note and discussed the case with the resident. I agree with the resident's findings and plan as documented. SUBJECTIVE: Patient seen and examined Unresponsive Last Vital Signs Temp Pulse Resp BP Pulse Ox 100.5 F H 100 H 27 H 111/55 L 98 12/03/18 18:00 12/03/18 18:00 12/03/18 18:00 12/03/18 18:00 12/03/18 09:00 HEENT: VLADIMIR, EOM Intact Cor: RSR, No murmurs, No gallops Lungs: diminished breath sounds Abd: tenderness Ext:No significant edema Skin: No rashes, Integument intact CBC, BMP 12/03/18 05:30 12/03/18 14:55 Current Medications Generic Name Dose Route Start Last Admin Trade Name Freq PRN Reason Stop Dose Admin Acetaminophen 1,000 mg 12/01/18 23:21 Ofirmev Injection - IVPB Q6H PRN PAIN LEVEL 6-10 OR FEVER Albuterol Sulfate 1 amp 12/02/18 09:02 12/02/18 11:20 Ventolin 0.083% Nebulizer Soln - NEB 1 amp Q6H PRN Administration SHORT OF BREATH/WHEEZING Calcitonin 270 unit 12/02/18 22:45 12/03/18 10:01 Miacalcin Injection - SQ 12/05/18 21:59 270 unit BID NICHOLAS Administration Chlorhexidine Gluconate 1 applic 12/03/18 22:00 Hibiclens For Decolonization - TP HS NICHOLAS Heparin Sodium (Porcine) 5,000 unit 12/02/18 10:00 12/03/18 09:54 Heparin - SQ 5,000 unit BID NICHOLAS Administration Famotidine/Sodium Chloride 20 mg in 50 mls @ 100 mls/hr 12/03/18 10:00 09:57 Pepcid 20 Mg Premixed Ivpb - IVPB 100 mls/hr BID NICHOLAS Administration Sodium Chloride 1,000 mls @ 150 mls/hr 12/03/18 10:27 12/03/18 10:40 Normal Saline - IV 150 mls/hr ASDIR NICHOLAS Administration Meropenem 500 mg/ Dextrose 100 mls @ 200 mls/hr 12/03/18 16:15 12/03/18 18:22 IVPB 200 mls/hr BID@0400,1600 NICHOLAS Administration Insulin Aspart 1 vial 12/02/18 16:30 12/03/18 16:52 Novolog Vial Sliding Scale - SQ 6 units BIDAC NICHOLAS Administration Protocol Insulin Detemir 10 units 12/02/18 22:00 12/02/18 23:51 Levemir Vial SQ 10 units HS NICHOLAS Administration Mupirocin 1 applic 12/03/18 10:00 12/03/18 09:54 Bactroban Ointment (For Decolonization) - NS 12/08/18 09:59 1 applic BID NICHOLAS Administration OBJECTIVE: 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 hemicolectomy--0/15 nodes negative Hypercalcemia - lung nodule ?paraneiplastic (heavy smoker in past); Bone and spine mets -calcitonin and zometa therapy Lung Nodule Cirrhosis Emphesematous cystitis- pending evaluation Toxic Metabolic L3 pathologic Fx Fevers- antibiotics per ID MARÍA DM Spoke at length to family with update ASSESSMENT AND PLAN:
[2018-12-03 19:05] LABS: ARTERIAL BLD GAS O2 SATURATION 97.4 % (90-98.9); ARTERIAL BLOOD GAS BASE EXCESS -2.6 meq/l (-2-2); ARTERIAL BLOOD GAS PCO2 37.2 mmHg (35-45); ARTERIAL BLOOD GAS pH 7.38 (7.35-7.45)
[2018-12-03] MEDS ORDERED: ACETAMINOPHEN 1000 MG/100 ML VIAL (NON FORMULARY) IVPB PRN (19:15)
[2018-12-03] MEDS ORDERED: ALBUTEROL SO4 0.083% IH SOL 2.5 MG/3 ML VIAL.NEB. NEB PRN (19:15)
[2018-12-03] MEDS: CHLORHEXIDINE GLUCONATE 4% CLEANSER FOR DECOLONIZATION TP SCH (21:19)
[2018-12-03] MEDS: INSULIN (LEVEMIR) 100 UNITS/ML UNITS SQ SCH (21:41)
[2018-12-04] MEDS: MEROPENEM 500 MG in DEXTROSE 5%-WATER 100 ML IVPB SCH ×2 (04:00→17:10)
[2018-12-04] MEDS: INSULIN SLIDING SCALE (NOVOLOG) 1 VIAL SQ SCH ×2 (06:03→17:11)
[2018-12-04 06:28] LABS: BASO % 0.1 % (0-2.0); EOS % 0.1 % (0-4.5); HEMATOCRIT 27.3 % (32.4-45.2); HEMOGLOBIN 8.6 GM/dL (10.7-15.3); LYMPH % 7.2 % (8-40); MCH 23.5 pg (25.7-33.7); MCHC 31.7 g/dl (32.0-36.0); MEAN CELL VOLUME 74.3 fl (80-96); MONO % 4.7 % (3.8-10.2); NEUT % 87.9 % (42.8-82.8); RBC 3.68 M/mm3 (3.60-5.2); RDW 21.1 % (11.6-15.6); WHITE BLOOD COUNT 12.7 K/mm3 (4.0-10.0)
[2018-12-04 07:24] LABS: ALBUMIN 2.2 g/dl (3.4-5.0); ALK PHOS 140 U/L (45-117); ANION GAP 9 MMOL/L (8-16); BILIRUBIN,TOTAL 0.4 mg/dL (0.2-1); BLOOD UREA NITROGEN 52 mg/dL (7-18); CALCIUM 9.4 mg/dL (8.5-10.1); CHLORIDE 114 mmol/L (98-107); CO2 23 mmol/L (21-32); CREATININE 2.1 mg/dL (0.55-1.3); GLUCOSE,RANDOM 219 mg/dL (74-106); MAGNESIUM 1.6 mg/dL (1.8-2.4); PHOSPHOROUS 3.7 mg/dL (2.5-4.9); POTASSIUM 3.8 mmol/L (3.5-5.1); SGOT/AST 22 U/L (15-37); SGPT/ALT 15 U/L (13-61); SODIUM 145 mmol/L (136-145); TOT PROT 5.7 g/dl (6.4-8.2)
[2018-12-04] MEDS ORDERED: MAGNESIUM SULF 50% (8.12 MEQ/2 ML-1 GM VIAL) IVPB ONE (08:01)
[2018-12-04] MEDS: HEPARIN NA (PORCINE) 5,000 UNITS/ML 1ML VIAL SQ SCH ×3 (09:46→21:26)
[2018-12-04] MEDS: FAMOTIDINE 20 MG/50 ML IVPB 20 MG/50 ML MG IVPB SCH (09:46)
[2018-12-04] MEDS ORDERED: PT OWN MED DRAWER 7, Y5N ONE ×2 (09:49→18:17)
--- NOTE | 2018-12-04 11:18 | PN ---
Progress Note (short form) - Note Progress Note: Pt examined in ICU pt is more awake today, confused NG+ Vital Signs - 24 hr 12/03/18 12/03/18 12/03/18 12:00 14:00 16:00 Temperature 100.2 F H 99.7 F H Pulse Rate 104 H 102 H 108 H Respiratory 32 H 32 H 30 H Rate Blood Pressure 101/61 131/62 113/55 L O2 Sat by Pulse Oximetry (%) 12/03/18 12/03/18 12/03/18 18:00 19:28 22:08 Temperature 100.5 F H 99.2 F Pulse Rate 100 H 94 H 88 Respiratory 27 H 24 H 24 H Rate Blood Pressure 111/55 L 112/54 L 127/85 O2 Sat by Pulse 98 Oximetry (%) 12/04/18 12/04/18 12/04/18 00:00 02:00 04:00 Temperature 98.9 F Pulse Rate 73 76 72 Respiratory 21 H 19 18 Rate Blood Pressure 106/55 L 110/93 130/56 L O2 Sat by Pulse Oximetry (%) 12/04/18 06:00 Temperature 98.5 F Pulse Rate 65 Respiratory 19 Rate Blood Pressure 141/83 O2 Sat by Pulse Oximetry (%) Current Medications Generic Name Dose Route Start Last Admin Trade Name Freq PRN Reason Stop Dose Admin Acetaminophen 1,000 mg 12/03/18 19:15 Ofirmev Injection - IVPB Q6H PRN PAIN LEVEL 6-10 Albuterol Sulfate 1 amp 12/03/18 19:15 Ventolin 0.083% Nebulizer Soln - NEB Q6H PRN SHORT OF BREATH/WHEEZING Calcitonin 270 unit 12/03/18 22:00 12/03/18 21:42 Miacalcin Injection - SQ 12/05/18 21:59 270 unit BID NICHOLAS Administration Chlorhexidine Gluconate 1 applic 12/03/18 22:00 12/03/18 21:19 Hibiclens For Decolonization - TP 1 applic HS NICHOLAS Administration Heparin Sodium (Porcine) 5,000 unit 12/03/18 22:00 12/04/18 09:46 Heparin - SQ 5,000 unit BID NICHOLAS Administration Famotidine/Sodium Chloride 20 mg in 50 mls @ 100 mls/hr 12/03/18 10:00 09:46 Pepcid 20 Mg Premixed Ivpb - IVPB 100 mls/hr BID NICHOLAS Administration Sodium Chloride 1,000 mls @ 150 mls/hr 12/03/18 10:27 12/03/18 10:40 Normal Saline - IV 150 mls/hr ASDIR NICHOLAS Administration Meropenem 500 mg/ Dextrose 100 mls @ 200 mls/hr 12/03/18 16:15 12/04/18 04:00 IVPB 200 mls/hr BID@0400,1600 NICHOLAS Administration Insulin Aspart 1 vial 12/04/18 07:00 12/04/18 06:03 Novolog Vial Sliding Scale - SQ 4 units BIDAC NICHOLAS Administration Protocol Insulin Detemir 10 units 12/03/18 22:00 12/03/18 21:41 Levemir Vial SQ 10 units HS NICHOLAS Administration Mupirocin 1 applic 12/03/18 10:00 12/03/18 21:19 Bactroban Ointment (For Decolonization) - NS 12/08/18 09:59 1 applic BID NICHOLAS Administration Laboratory Results - last 24 hr 12/03/18 12/03/18 12/03/18 05:30 05:30 05:30 WBC RBC Hgb Hct MCV MCH MCHC RDW Absolute Neuts (auto) Neutrophils % Neutrophils % (Manual) 85.0 H Band Neutrophils % 0.0 Lymphocytes % Lymphocytes % (Manual) 9.0 D Monocytes % Monocytes % (Manual) 6 D Eosinophils % Eosinophils % (Manual) 0.0 Basophils % Basophils % (Manual) 0.0 Myelocytes % (Man) 0 Promyelocytes % (Man) 0 Blast Cells % (Manual) 0 Nucleated RBC % 0 Metamyelocytes 0 Hypochromia 0 Platelet Estimate Normal Polychromasia 1+ Poikilocytosis 1+ Anisocytosis 1+ Microcytosis 1+ Macrocytosis 0 Target Cells 1+ Anticoagulation Therapy Puncture Site ABG pH ABG pCO2 at Pt Temp ABG pO2 at Pt Temp ABG HCO3 ABG O2 Sat (Measured) ABG O2 Content ABG Base Excess Fred Test O2 Delivery Device Oxygen Flow Rate Vent Mode Vent Rate Mechanical Rate Pressure Support Vent Sodium Potassium Chloride Carbon Dioxide Anion Gap BUN Creatinine Creat Clearance w eGFR Random Glucose Calcium Phosphorus Magnesium Total Bilirubin AST ALT Alkaline Phosphatase Total Protein Albumin Carcinoembryonic Ag 41.0 H CA 125 Antigen 83.3 H TSH PTH Intact 18 Random Vancomycin 12/03/18 12/03/18 12/04/18 14:55 18:50 05:30 WBC RBC Hgb Hct MCV MCH MCHC RDW Absolute Neuts (auto) Neutrophils % Neutrophils % (Manual) Band Neutrophils % Lymphocytes % Lymphocytes % (Manual) Monocytes % Monocytes % (Manual) Eosinophils % Eosinophils % (Manual) Basophils % Basophils % (Manual) Myelocytes % (Man) Promyelocytes % (Man) Blast Cells % (Manual) Nucleated RBC % Metamyelocytes Hypochromia Platelet Estimate Polychromasia Poikilocytosis Anisocytosis Microcytosis Macrocytosis Target Cells Anticoagulation Therapy No Result Required. Puncture Site No Result Required. ABG pH 7.38 ABG pCO2 at Pt Temp 37.2 ABG pO2 at Pt Temp 106.0 H D ABG HCO3 21.6 L ABG O2 Sat (Measured) 97.4 ABG O2 Content 12.6 L ABG Base Excess -2.6 L Fred Test No Result Required. O2 Delivery Device Nasal Oxygen Flow Rate 3l Vent Mode No Result Required. Vent Rate No Result Required. Mechanical Rate No Result Required. Pressure Support Vent No Result Required. Sodium 142 Potassium 4.0 Chloride 108 H Carbon Dioxide 21 Anion Gap 13 BUN 59 H Creatinine 2.8 H Creat Clearance w eGFR 16.61 Random Glucose 286 H Calcium 10.5 H Phosphorus Magnesium Total Bilirubin AST ALT Alkaline Phosphatase Total Protein Albumin Carcinoembryonic Ag CA 125 Antigen TSH PTH Intact Random Vancomycin 17.2 L 12/04/18 12/04/18 05:30 05:30 WBC 12.7 H RBC 3.68 Hgb 8.6 L Hct 27.3 L D MCV 74.3 L MCH 23.5 L MCHC 31.7 L RDW 21.1 H Absolute Neuts (auto) 11.1 H Neutrophils % 87.9 H Neutrophils % (Manual) Band Neutrophils % Lymphocytes % 7.2 L D Lymphocytes % (Manual) Monocytes % 4.7 Monocytes % (Manual) Eosinophils % 0.1 D Eosinophils % (Manual) Basophils % 0.1 Basophils % (Manual) Myelocytes % (Man) Promyelocytes % (Man) Blast Cells % (Manual) Nucleated RBC % 0 Metamyelocytes Hypochromia Platelet Estimate Polychromasia Poikilocytosis Anisocytosis Microcytosis Macrocytosis Target Cells Anticoagulation Therapy Puncture Site ABG pH ABG pCO2 at Pt Temp ABG pO2 at Pt Temp ABG HCO3 ABG O2 Sat (Measured) ABG O2 Content ABG Base Excess Fred Test O2 Delivery Device Oxygen Flow Rate Vent Mode Vent Rate Mechanical Rate Pressure Support Vent Sodium 145 Potassium 3.8 Chloride 114 H Carbon Dioxide 23 Anion Gap 9 BUN 52 H Creatinine 2.1 H Creat Clearance w eGFR 23.15 Random Glucose 219 H Calcium 9.4 Phosphorus 3.7 Magnesium 1.6 L Total Bilirubin 0.4 AST 22 ALT 15 Alkaline Phosphatase 140 H Total Protein 5.7 L Albumin 2.2 L Carcinoembryonic Ag CA 125 Antigen TSH 0.71 PTH Intact Random Vancomycin S1 S2 RRR Oral dry lungs no rales, ronchi Abd- soft, NT No edema PLAN IV fluids spoke with ICU team -- CT abd/pelvis noted eval lytic lesions in spine and pelvis, emphysematous cystitis calcium better pt more awake but not at baseline prognosis poor broad spectrum antibiotics Problem List - Problems (1) Altered mental status Code(s): R41.82 - ALTERED MENTAL STATUS, UNSPECIFIED Qualifiers: Altered mental status type: unspecified Qualified Code(s): R41.82 - Altered mental status, unspecified (2) CAD (coronary artery disease) Code(s): I25.10 - ATHSCL HEART DISEASE OF [place] CORONARY ARTERY W/O ANG PCTRS (3) Cognitive and neurobehavioral dysfunction Code(s): F09 - UNSP MENTAL DISORDER DUE TO KNOWN PHYSIOLOGICAL CONDITION; F07.89 - OTH PERSONALITY & BEHAVRL DISORD DUE TO KNOWN PHYSIOL COND (4) Diabetes Code(s): E11.9 - TYPE 2 DIABETES MELLITUS WITHOUT COMPLICATIONS (5) HLD (hyperlipidemia) Code(s): E78.5 - HYPERLIPIDEMIA, UNSPECIFIED (6) Hypercalcemia Code(s): E83.52 - HYPERCALCEMIA (7) Hypothyroidism Code(s): E03.9 - HYPOTHYROIDISM, UNSPECIFIED (8) Leukocytosis Code(s): D72.829 - ELEVATED WHITE BLOOD CELL COUNT, UNSPECIFIED Qualifiers: Leukocytosis type: unspecified Qualified Code(s): D72.829 - Elevated white blood cell count, unspecified (9) Emphysematous cystitis Code(s): N30.80 - OTHER CYSTITIS WITHOUT HEMATURIA (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
[2018-12-04] MEDS ORDERED: SODIUM CHLORIDE 0.45% 1,000 ML IV SCH (11:30)
--- NOTE | 2018-12-04 11:48 | PN ---
Teaching Attending Note Name of Resident: Rupa Jacinto ATTENDING PHYSICIAN STATEMENT I saw and evaluated the patient. I reviewed the resident's note and discussed the case with the resident. I agree with the resident's findings and plan as documented. SUBJECTIVE: Pt seen and examined in the ICU. More alert, awake today but still confused. Denies abdominal pain. OBJECTIVE: Vital Signs Period Temp Pulse Resp BP Sys/Barrera Pulse Ox Last 24 Hr 98.5 F-100.5 F 65-108 18-32 101-141/54-93 98 Intake & Output 12/01/18 12/02/18 12/03/18 12/04/18 23:59 23:59 23:59 23:59 Intake Total 2400 2690 1900 Output Total 440 1900 600 Balance -440 2400 790 1300 Weight 68.946 kg 68.039 kg 68.039 kg Gen: confused but more alert, awake Heart: RRR Lung: decreased breath sounds at the bases Abd: soft, nontender Ext: no edema CBC, BMP 12/04/18 05:30 12/04/18 05:30 Active Medications Acetaminophen (Ofirmev Injection -) 1,000 mg IVPB Q6H PRN PRN Reason: PAIN LEVEL 6-10 Albuterol Sulfate (Ventolin 0.083% Nebulizer Soln -) 1 amp NEB Q6H PRN PRN Reason: SHORT OF BREATH/WHEEZING Calcitonin (Miacalcin Injection -) 270 unit SQ BID [facility] Stop: 12/05/18 21:59 Last Admin: 12/03/18 21:42 Dose: 270 unit Chlorhexidine Gluconate (Hibiclens For Decolonization -) 1 applic TP HS [facility] Last Admin: 12/03/18 21:19 Dose: 1 applic Heparin Sodium (Porcine) (Heparin -) 5,000 unit SQ TID NICHOLAS Meropenem 500 mg/ Dextrose 100 mls @ 200 mls/hr IVPB BID@0400,1600 NICHOLAS Last Admin: 12/04/18 04:00 Dose: 200 mls/hr Sodium Chloride (1/2 Normal Saline) 1,000 mls @ 150 mls/hr IV ASDIR NICHOLAS Insulin Aspart (Novolog Vial Sliding Scale -) [facility]; Protocol Last Admin: 12/04/18 06:03 Dose: 4 units Insulin Detemir (Levemir Vial) 10 units SQ HS [facility] Last Admin: 12/03/18 21:41 Dose: 10 units Mupirocin (Bactroban Ointment (For Decolonization) -) 1 applic NS BID [facility] Stop: 12/08/18 09:59 Last Admin: 12/03/18 21:19 Dose: 1 applic ASSESSMENT AND PLAN: Altered Mental Status improving Sepsis UTI/Emphysematous Cystitis Acute Kidney Injury Hypercalcemia Lung Nodule suspicious for malignancy r/o Colon Mass Suspect Metastatic Disease DM - continue broad spectrum antibiotics - IVF - monitor urine output, creatinine - continue calcitonin - monitor calcium - PO as tolerated - aspiration precautions - will need tissue diagnosis likely from one of the osteolytic lesions when stable - DVT prophylaxis - continue ICU monitoring critical care time spent in reviewing chart, evaluating patient and formulating plan 35 min
[2018-12-04] MEDS: MUPIROCIN 2% TOPICAL OINTMENT FOR DECOLONIZATION NS SCH ×2 (12:08→21:26)
[2018-12-04] MEDS: CALCITONIN - SALMON SYNTHETIC 400 UNIT/2 ML VIAL SQ SCH ×2 (12:09→21:27)
--- NOTE | 2018-12-04 12:52 | PN ---
Progress Note (short form) - Note Progress Note: NEUROLOGY PROGRESS: Events reviewed and discussed with Dr. Roche and Residents. Pt is more alert. WBC down to 12.7 K; Ca++ =9.4 mg%; Mg+= 1.6 mg% Radiology reports diffuse bony metastases. Sister is aware. Pt. is DNR Severe cystitis is likely source of infection. EXAM: Neck supple. Neg Kernig's Patient is awake, alert but confused. Laughing inappropriately. Follows rare, simple commands. Gibberish speech. Full zimmerman to threat. Full EOM's Moves all 4's well. Normal reflexes. IMP: Non-focal exam Toxic-Metabolic Encephalopathy (TME) / Delirium. Suggest: Continue hydration and antibiotics with CERTIFIED MORTICIAN penetration. Thank you very much, Chance Roman MD
--- NOTE | 2018-12-04 14:09 | CONSULT ---
Admitting History and Physical - Primary Care Physician PCP: Gustavo Jacinto - Admission History of Present Illness: This is a 73 y/o woman from [facility] witha PMHx of: HTN, COPD, DM, HLD, CAD, FM , Hypothyroidism, Depression. Admitted for Toxic Metabolic Encephalopathy, Fever , Leukocytosis Altered Mental Status improving Sepsis UTI/Emphysematous Cystitis Acute Kidney Injury Hypercalcemia Lung Nodule suspicious for malignancy r/o Colon Mass Suspect Metastatic Disease DM Selected Entries 12/04/18 12/04/18 12/04/18 00:00 02:00 04:00 Lunch Temperature 98.9 F Respiratory 21 H 19 18 Rate 12/04/18 12/04/18 12/04/18 06:00 08:00 09:02 Lunch NPO Temperature 98.5 F 98.6 F Respiratory 19 19 Rate 12/04/18 12/04/18 12/04/18 10:00 12:00 14:00 Lunch Temperature 98.2 F 98.4 F 98.2 F Respiratory 19 19 20 Rate Laboratory Tests 12/03/18 12/04/18 05:30 05:30 WBC 26.1 H 12.7 H This is my first consult with this pt. History Source: Family Member (Scott reports baseline is "slow" all of her life , but with recent deterioration.Worse than baseline at this time.), Medical Record Limitations to Obtaining History: Clinical Condition - Past Medical History Cardiovascular: Yes: CAD, HTN, Hyperlipdemia Pulmonary: Yes: COPD Psych: Yes: Anxiety, Depression Rheumatology: Yes: Fibromyalgia Endocrine: Yes: Diabetes Mellitus, Hypothyroidism - Smoking History Smoking history: Former smoker Have you smoked in the past 12 months: No If you are a former smoker, when did you quit?: 26 yrs ago - Alcohol/Substance Use Hx Alcohol Use: No History of Substance Use: reports: None - Social History ADL: Support Services History of Recent Travel: No History - Admission Reason For Visit: LEUKOCYTOPENIA,ALTERED MENTAL STATUS - Diagnostics X-ray: Report Reviewed - General Mental Status: Awake and Alert, Able to Follow Commands, Forgetful, Vague, Confused Attention: Distractible, Moderate Impairment Ability to Follow Directions: Fair Head/Neck Control: Fair - Hearing Hearing: Normal Speech Evaluation - Communication Primary Language: GERMAN Communication: Yes: Simple Responses (slow to formulate, distractible while speaking) Oral Expression Ability: Yes: Moderate Impairment - Speech Production Intelligibility: Yes: Mildly Impaired - Speech Characteristics Voice Loudness: Normal Voice Pitch: Yes: Normal Voice Phonatory-based Quality: Yes: Normal Speech Pattern: Impaired Speech Clarity: < 100% Nasal Resonance: Normal Articulation: Yes: Imprecise Rate of Speech: Too Slow - Language/Auditory Comprehension Follows: Yes: 1 Stage Simple Commands Observation: Comprehends Conversational Speech: Yes (simple. When attending), Benefits from Slow Speech: Yes, Benefits from Repetiton: Yes - Language/Verbal Expression Aphasia: Yes: Anomia Able to Respond to Simple Queries: Yes: Moderately Impaired Able to Communicate Wants and Needs: Yes: Mildly Impaired, Moderately Impaired - Memory/Perception long term care social worker Memory: Yes: Moderately Impaired Short Term Memory: Yes: Moderately Impaired - Swallow Evaluation/Bedside Assessment Current Nutritional Intake: NPO, NG Tube (in place) Oral Secretions: Yes: WFL Dentition: Yes: Adequate Facial Symmetry at Rest: Symmetrical Facial Symmetry on Retraction: Symmetrical Jaw Position: Open at Rest Against Resistance Opening: Weak Against Resistance Closing: Weak Pucker Lips: Weak Smile: Weak Lingual Movement: Symmetric Lingual Speed of Movement: Reduced Lingual Movement Strgth Against Opposition: Reduced Lingual Movement Characteristics: Normal Velopharyngeal Movement: Normal Laryngeal Movement: Reduced Excursion, Labored,delay initiation, Reduced Velocity, Other (needs reminds to close mouth and swallow. Not always aware of food on tongue.) Rate of Intake: Slow/Holding Bolus Size: Small Labial Seal: Impaired Bilaterally Chewing: Impaired Oral Prep Time: Increased A-P Transit: Impaired Timing of Swallow: Delayed Coughing/Throat Clear: No (No cough but risk of aspiration) Change in Voice: No Recommendations - Speech Evaluation, Impression/Plan Impression: Distractible.Pt needs reminds to close mouth and swallow. Not always aware of food on tongue.No cough but risk of aspiration. Swallow itself, once triggered ,is quite brisk. - Disposition Discharge to: To be Determined - Dysphagia Impressions/Plan Swallowing Skills: Impaired Dysphagia Impressions: Mild Impairment, Moderate Impairment, Risk of Aspiration , Ongoing Evaluation *Silent aspiration: cannot be R/O at bedside Dysphagia Treatment Plan: Small Bites, Chin Tuck/Down, Clear Pocket Food, Safe Rate, 1/2 tsp. at a time, Elevate HOB during feed, Other ([place] pt to food on the spoon. Tell pt to close mouth and swallow.) - Recommendations Diet Consistency: Dysphagia Pureed Medication Administration: Crushed with applesauce Liquids: [place] Thick (single sips. No straws) Supplement: Magic Cup, Ensure Pudding
--- NOTE | 2018-12-04 14:25 | PN ---
Physical Exam: SUBJECTIVE: Patient seen and examined awake and more verbal but confused. No acute events overnight OBJECTIVE: Vital Signs Period Temp Pulse Resp BP Sys/Barrera Pulse Ox Last 24 Hr 98.2 F-100.5 F 65-108 18-30 106-141/54-93 98-98 GENERAL: Awake, Alert but confused HEAD: NCAT EYES: PERRL, EOMI ENT: Dry mucous membranes NECK: No JVD LUNGS: Diminished breath sounds at the bases, no wheezes HEART: Regular rate and rhythm, S1, S2 without murmur ABDOMEN: Rigid, Midline healed abdominal scar, mildly distended, + bowel sounds , no guarding EXTREMITIES: 2+ pulses, no edema. NEUROLOGICAL: Follows some commands but speech is nonsensical SKIN: Warm, dry Laboratory Results - last 24 hr 12/03/18 12/03/18 12/03/18 05:30 05:30 14:55 WBC RBC Hgb Hct MCV MCH MCHC RDW Absolute Neuts (auto) Neutrophils % Lymphocytes % Monocytes % Eosinophils % Basophils % Nucleated RBC % Platelet Comment Anticoagulation Therapy Puncture Site ABG pH ABG pCO2 at Pt Temp ABG pO2 at Pt Temp ABG HCO3 ABG O2 Sat (Measured) ABG O2 Content ABG Base Excess Fred Test O2 Delivery Device Oxygen Flow Rate Vent Mode Vent Rate Mechanical Rate Pressure Support Vent Sodium 142 Potassium 4.0 Chloride 108 H Carbon Dioxide 21 Anion Gap 13 BUN 59 H Creatinine 2.8 H Creat Clearance w eGFR 16.61 POC Glucometer Random Glucose 286 H Calcium 10.5 H Phosphorus Magnesium Total Bilirubin AST ALT Alkaline Phosphatase Total Protein Albumin Carcinoembryonic Ag 41.0 H CA 125 Antigen 83.3 H TSH PTH Intact 18 Random Vancomycin 12/03/18 12/03/18 12/04/18 18:50 20:58 05:21 WBC RBC Hgb Hct MCV MCH MCHC RDW Absolute Neuts (auto) Neutrophils % Lymphocytes % Monocytes % Eosinophils % Basophils % Nucleated RBC % Platelet Comment Anticoagulation Therapy No Result Required. Puncture Site No Result Required. ABG pH 7.38 ABG pCO2 at Pt Temp 37.2 ABG pO2 at Pt Temp 106.0 H D ABG HCO3 21.6 L ABG O2 Sat (Measured) 97.4 ABG O2 Content 12.6 L ABG Base Excess -2.6 L Fred Test No Result Required. O2 Delivery Device Nasal Oxygen Flow Rate 3l Vent Mode No Result Required. Vent Rate No Result Required. Mechanical Rate No Result Required. Pressure Support Vent No Result Required. Sodium Potassium Chloride Carbon Dioxide Anion Gap BUN Creatinine Creat Clearance w eGFR POC Glucometer 206.68119 218.09058 Random Glucose Calcium Phosphorus Magnesium Total Bilirubin AST ALT Alkaline Phosphatase Total Protein Albumin Carcinoembryonic Ag CA 125 Antigen TSH PTH Intact Random Vancomycin 12/04/18 12/04/18 12/04/18 05:30 05:30 05:30 WBC 12.7 H RBC 3.68 Hgb 8.6 L Hct 27.3 L D MCV 74.3 L MCH 23.5 L MCHC 31.7 L RDW 21.1 H Absolute Neuts (auto) 11.1 H Neutrophils % 87.9 H Lymphocytes % 7.2 L D Monocytes % 4.7 Eosinophils % 0.1 D Basophils % 0.1 Nucleated RBC % 0 Platelet Comment Slt plt clumping Anticoagulation Therapy Puncture Site ABG pH ABG pCO2 at Pt Temp ABG pO2 at Pt Temp ABG HCO3 ABG O2 Sat (Measured) ABG O2 Content ABG Base Excess Fred Test O2 Delivery Device Oxygen Flow Rate Vent Mode Vent Rate Mechanical Rate Pressure Support Vent Sodium 145 Potassium 3.8 Chloride 114 H Carbon Dioxide 23 Anion Gap 9 BUN 52 H Creatinine 2.1 H Creat Clearance w eGFR 23.15 POC Glucometer Random Glucose 219 H Calcium 9.4 Phosphorus 3.7 Magnesium 1.6 L Total Bilirubin 0.4 AST 22 ALT 15 Alkaline Phosphatase 140 H Total Protein 5.7 L Albumin 2.2 L Carcinoembryonic Ag CA 125 Antigen TSH 0.71 PTH Intact Random Vancomycin 17.2 L Microbiology 12/01/18 19:04 Urine - Urine - Catheterized Urine Culture - Final Escherichia Coli 12/01/18 18:40 Blood - Peripheral Venous Blood Culture - Preliminary Staphylococcus Coagulase Neg 12/03/18 01:25 Blood - Peripheral Venous Blood Culture - Preliminary NO GROWTH OBTAINED AFTER 24 HOURS, INCUBATION TO CONTINUE FOR 4 DAYS. 12/01/18 19:04 Blood - Peripheral Venous Blood Culture - Preliminary NO GROWTH OBTAINED AFTER 48 HOURS, INCUBATION TO CONTINUE FOR 3 DAYS. Active Medications Acetaminophen (Ofirmev Injection -) 1,000 mg IVPB Q6H PRN PRN Reason: PAIN LEVEL 6-10 Albuterol Sulfate (Ventolin 0.083% Nebulizer Soln -) 1 amp NEB Q6H PRN PRN Reason: SHORT OF BREATH/WHEEZING Calcitonin (Miacalcin Injection -) 270 unit SQ BID [facility] Stop: 12/05/18 21:59 Last Admin: 12/04/18 12:09 Dose: 270 unit Chlorhexidine Gluconate (Hibiclens For Decolonization -) 1 applic TP HS [facility] Last Admin: 12/03/18 21:19 Dose: 1 applic Heparin Sodium (Porcine) (Heparin -) 5,000 unit SQ TID [facility] Meropenem 500 mg/ Dextrose 100 mls @ 200 mls/hr IVPB BID@0400,1600 [facility] Last Admin: 12/04/18 04:00 Dose: 200 mls/hr Sodium Chloride (1/2 Normal Saline) 1,000 mls @ 150 mls/hr IV ASDIR [facility] Last Admin: 12/04/18 12:14 Dose: 150 mls/hr Insulin Aspart (Novolog Vial Sliding Scale -) 1 vial SQ BIDAC [facility]; Protocol Last Admin: 12/04/18 06:03 Dose: 4 units Insulin Detemir (Levemir Vial) 10 units SQ HS [facility] Last Admin: 12/03/18 21:41 Dose: 10 units Mupirocin (Bactroban Ointment (For Decolonization) -) 1 applic NS BID [facility] Stop: 12/08/18 09:59 Last Admin: 12/04/18 12:08 Dose: 1 applic ASSESSMENT/PLAN: 73 y/o F with PMHx of DM, HTN, Parkinson's disease, COPD, Appendiceal adenocarcinoma, RLL lung nodule was BIBEMA from [facility] due to AMS, was evaluated by Neuro and will be observed in ICU for concerns of Meningitis. #Neuro Toxic metabolic encephalopathy due to infection vs Delirium vs Hypercalcemia; R/ O Meningitis Hx of Parkinsons Disease -CT Head without contrast: No evidence of acute intracranial hemorrhage, edema, midline shift, mass effect, or skull fracture. No CT evidence of acute territorial ischemic changes. -Neurology (Dr. 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 This mass measures approximately 2.0 x 2.2 cm. -CT A/P with Oral contrast: Possible acute diverticulitis versus neoplastic disease. Multiple osteolytic lesions suspicious for metastatic neoplastic disease. -CA 125, CEA PTH pending -Ca corrected -Continue Calcitonin 270u BID -Change to 1/2 NS @ 150 mls/hr -Oncology (Dr. Almodovar) consulted, Appreciate rec's #ID Infection, R/O Meningitis -WBC count Improving -Influenza negative -CXR: No acute pathology. Right lower lung mass previously noted -Urine Cx: Escherichia Coli -Blood Cx: Staphylococcus Coagulase Neg (Likely contaminant) -IV Tylenol for fevers -Continue Vancomycin, Meropenem -1/2 NS @ 150 mls/hr -ID (Dr. Salas) consulted #Cardio Tachycardia likely response to fever Hx of HTN -EKG NSR, VR 60, QTc 392 -Hold home dose Atenolol #Pulmonary Previously noted lung nodules Hx of COPD -Will require outpatient follow up -Continue Albuterol Nebulizer Q6H PRN -Supplemental O2 PRN to main SpO2 88-92% #Renal MARÍA HyperNatremia, Resolved -BUN/Cr improving -Obstruction (B/L [place]) vs Pre-renal due to Hypoperfusion vs Abx adverse effects -Change to 1/2 NS @ 150 mls/hr -Renal/Kidney US: Mild bilateral hydronephrosis -Continue to monitor -CT A/P with Oral contrast: Air is seen within the urinary bladder wall bilaterally -Urology (Dr. Thrasher) consulted #GI Elevated Alk Phos; AST/ALT WNL Hx of Appendiceal adenocarcinoma -GGT: 291 -NG Tube placed #Endocrine Hx of DM -BGM ISS ACHS -Hold oral hypoglycemics #FEN -NS @ 150 mls/hr -Replete lytes PRN -NPO #PPx -DVT: Heparin Dispo: Continue to monitor in ICU Code status: DNR/DNI by family at bedside Visit type - Emergency Visit Emergency Visit: Yes ED Registration Date: 12/01/18 Care time: The patient presented to the Emergency Department on the above date and was hospitalized for further evaluation of their emergent condition. - New Patient This patient is new to me today: No - Critical Care Critical Care patient: Yes Total Critical Care Time (in minutes): 36 Critical Care Statement: The care of this patient involved high complexity decision making to prevent further life threatening deterioration of the patient 's condition and/or to evaluate & treat vital organ system(s) failure or risk of failure.
[2018-12-04] MEDS: CHLORHEXIDINE GLUCONATE 4% CLEANSER FOR DECOLONIZATION TP SCH (21:27)
[2018-12-04] MEDS: INSULIN (LEVEMIR) 100 UNITS/ML UNITS SQ SCH (21:28)
[2018-12-05] MEDS: MEROPENEM 500 MG in DEXTROSE 5%-WATER 100 ML IVPB SCH ×2 (03:20→17:17)
[2018-12-05] MEDS: INSULIN SLIDING SCALE (NOVOLOG) 1 VIAL SQ SCH ×6 (06:16→17:05)
[2018-12-05] MEDS: HEPARIN NA (PORCINE) 5,000 UNITS/ML 1ML VIAL SQ SCH ×3 (06:16→22:19)
[2018-12-05 06:26] LABS: BASO % 0.2 % (0-2.0); HEMATOCRIT 25.6 % (32.4-45.2); HEMOGLOBIN 8.2 GM/dL (10.7-15.3); LYMPH % 9.8 % (8-40); MCH 23.7 pg (25.7-33.7); MEAN CELL VOLUME 73.9 fl (80-96); MEAN PLT VOLUME 9.1 fl (7.5-11.1); MONO % 5.2 % (3.8-10.2); NEUT % 83.8 % (42.8-82.8); PLATELET COUNT 150 K/MM3 (134-434); RBC 3.46 M/mm3 (3.60-5.2); RDW 20.7 % (11.6-15.6); WHITE BLOOD COUNT 9.6 K/mm3 (4.0-10.0)
[2018-12-05 06:56] LABS: ALBUMIN 2.2 g/dl (3.4-5.0); ALK PHOS 134 U/L (45-117); ANION GAP 9 MMOL/L (8-16); BILIRUBIN,TOTAL 0.3 mg/dL (0.2-1); BLOOD UREA NITROGEN 32 mg/dL (7-18); CALCIUM 7.9 mg/dL (8.5-10.1); CHLORIDE 113 mmol/L (98-107); CO2 24 mmol/L (21-32); CREATININE 1.2 mg/dL (0.55-1.3); GLUCOSE,RANDOM 135 mg/dL (74-106); MAGNESIUM 1.6 mg/dL (1.8-2.4); PHOSPHOROUS 1.7 mg/dL (2.5-4.9); POTASSIUM 3.2 mmol/L (3.5-5.1); SGOT/AST 22 U/L (15-37); SGPT/ALT 16 U/L (13-61); SODIUM 146 mmol/L (136-145); TOT PROT 5.3 g/dl (6.4-8.2)
[2018-12-05] MEDS ORDERED: POTASSIUM CHLORIDE TABS 20 MEQ TABLET.ER (FP) PO ONE (07:22)
[2018-12-05] MEDS ORDERED: MAGNESIUM SULF 50% (8.12 MEQ/2 ML-1 GM VIAL) IVPB ONE (08:30)
[2018-12-05] MEDS ORDERED: NAPH,MB-DB/K PH,MBDB POWDER PACKET PO ONE (08:45)
--- NOTE | 2018-12-05 08:55 | PN ---
Progress Note (short form) - Note Progress Note: pt seen/ examined in icu chart reviewed all f/u noted much more alert and awake recognizes me Sister at bedside Denies pain Vital Signs Temp 98.6 F 12/05/18 06:00 Pulse 65 12/05/18 08:00 Resp 20 12/05/18 08:00 BP 144/59 L 12/05/18 08:00 Pulse Ox 98 12/04/18 20:00 Intake & Output 12/04/18 12/04/18 12/05/18 11:59 23:59 11:59 Intake Total 1900 2200 1900 Output Total 600 2200 400 Balance 1300 0 1500 Intake: IV 1800 1800 1800 1/2 Normal Saline 1,000 1800 ml @ 150 mls/hr IV ASDIR [facility] Rx#:[id number] Normal Saline - 1,000 ml 1800 1800 @ 150 mls/hr IV ASDIR [facility] Rx#:[id number] IVPB 100 200 100 Oral 200 Output: Urine 600 2200 400 Gregg 600 2200 400 Other: Voiding Method Indwelling Catheter Indwelling Catheter Bowel Movement No Yes: small formed # Bowel Movements 1 Laboratory Last Values WBC 9.6 K/mm3 (4.0-10.0) 12/05/18 05:30 RBC 3.46 M/mm3 (3.60-5.2) L 12/05/18 05:30 Hgb 8.2 GM/dL (10.7-15.3) L 12/05/18 05:30 Hct 25.6 % (32.4-45.2) L 12/05/18 05:30 MCV 73.9 fl (80-96) L 12/05/18 05:30 MCH 23.7 pg (25.7-33.7) L 12/05/18 05:30 MCHC 32.0 g/dl (32.0-36.0) 12/05/18 05:30 RDW 20.7 % (11.6-15.6) H 12/05/18 05:30 Plt Count K/MM3 (134-434) 12/04/18 05:30 MPV No Result Required. 12/04/18 05:30 Absolute Neuts (auto) 8.1 K/mm3 (1.5-8.0) H 12/05/18 05:30 Neutrophils % 83.8 % (42.8-82.8) H 12/05/18 05:30 Neutrophils % (Manual) 85.0 % (42.8-82.8) H 12/03/18 05:30 Band Neutrophils % 0.0 % 12/03/18 05:30 Lymphocytes % 9.8 % (8-40) D 12/05/18 05:30 Lymphocytes % (Manual) 9.0 % (8-40) D 12/03/18 05:30 Monocytes % 5.2 % (3.8-10.2) 12/05/18 05:30 Monocytes % (Manual) 6 % (3.8-10.2) D 12/03/18 05:30 Eosinophils % 1.0 % (0-4.5) D 12/05/18 05:30 Eosinophils % (Manual) 0.0 % (0-4.5) 12/03/18 05:30 Basophils % 0.2 % (0-2.0) 12/05/18 05:30 Basophils % (Manual) 0.0 % (0-2.0) 12/03/18 05:30 Myelocytes % (Man) 0 % (0-2) 12/03/18 05:30 Promyelocytes % (Man) 0 % (0-2) 12/03/18 05:30 Blast Cells % (Manual) 0 % (0-0) 12/03/18 05:30 Nucleated RBC % 0 % (0-0) 12/05/18 05:30 Metamyelocytes 0 % (0-2) 12/03/18 05:30 Hypersegmented Neuts Few 12/01/18 18:40 Hypochromia 0 12/03/18 05:30 Platelet Estimate Normal 12/03/18 05:30 Platelet Comment Slt plt clumping 12/04/18 05:30 Polychromasia 1+ 12/03/18 05:30 Poikilocytosis 1+ 12/03/18 05:30 Anisocytosis 1+ 12/03/18 05:30 Microcytosis 1+ 12/03/18 05:30 Macrocytosis 0 12/03/18 05:30 Target Cells 1+ 12/03/18 05:30 ESR 36 mm/hr (0-30) H 12/03/18 05:30 PT with INR 16.80 SEC (9.7-13.0) H 12/03/18 05:30 INR 1.42 (0.83-1.09) H 12/03/18 05:30 PTT (Actin FS) 25.5 SECONDS (25.2-36.5) 12/01/18 18:40 Anticoagulation Therapy No Result Required. 12/03/18 18:50 Puncture Site No Result Required. 12/03/18 18:50 ABG pH 7.38 (7.35-7.45) 12/03/18 18:50 ABG pCO2 at Pt Temp 37.2 mmHg (35-45) 12/03/18 18:50 ABG pO2 at Pt Temp 106.0 mmHg (70-100) H D 12/03/18 18:50 ABG HCO3 21.6 meq/L (22-26) L 12/03/18 18:50 ABG O2 Sat (Measured) 97.4 % (90-98.9) 12/03/18 18:50 ABG O2 Content 12.6 % vol (15-22) L 12/03/18 18:50 ABG Base Excess -2.6 meq/l (-2-2) L 12/03/18 18:50 Fred Test No Result Required. 12/03/18 18:50 VBG pH 7.41 (7.32-7.42) 12/01/18 18:40 POC VBG pCO2 38.8 mmHg (38-52) 12/01/18 18:40 POC VBG pO2 52.8 mmHg (28-48) H 12/01/18 18:40 Mixed VBG HCO3 23.9 meq/L (19-25) 12/01/18 18:40 O2 Delivery Device Nasal 12/03/18 18:50 Oxygen Flow Rate 3l 12/03/18 18:50 Vent Mode No Result Required. 12/03/18 18:50 Vent Rate No Result Required. 12/03/18 18:50 Mechanical Rate No Result Required. 12/03/18 18:50 Pressure Support Vent No Result Required. 12/03/18 18:50 Sodium 146 mmol/L (136-145) H 12/05/18 05:30 Potassium 3.2 mmol/L (3.5-5.1) L 12/05/18 05:30 Chloride 113 mmol/L (98-107) H 12/05/18 05:30 Carbon Dioxide 24 mmol/L (21-32) 12/05/18 05:30 Anion Gap 9 MMOL/L (8-16) 12/05/18 05:30 BUN 32 mg/dL (7-18) H 12/05/18 05:30 Creatinine 1.2 mg/dL (0.55-1.3) 12/05/18 05:30 Creat Clearance w eGFR 44.16 (>60) 12/05/18 05:30 POC Glucometer 218.60404 UNITS (80-120) 12/04/18 05:21 Random Glucose 135 mg/dL (74-106) H 12/05/18 05:30 Lactic Acid 1.7 mmol/L (0.4-2.0) 12/03/18 01:25 Calcium 7.9 mg/dL (8.5-10.1) L 12/05/18 05:30 Phosphorus 1.7 mg/dL (2.5-4.9) L 12/05/18 05:30 Magnesium 1.6 mg/dL (1.8-2.4) L 12/05/18 05:30 Total Bilirubin 0.3 mg/dL (0.2-1) 12/05/18 05:30 GGT 291 U/L (5-85) H 12/03/18 05:30 AST 22 U/L (15-37) 12/05/18 05:30 ALT 16 U/L (13-61) 12/05/18 05:30 Alkaline Phosphatase 134 U/L (45-117) H 12/05/18 05:30 Ammonia 28.80 umol/L (11-32) 12/03/18 01:25 Troponin I < 0.02 ng/ml (0.00-0.05) 12/01/18 18:40 Total Protein 5.3 g/dl (6.4-8.2) L 12/05/18 05:30 Albumin 2.2 g/dl (3.4-5.0) L 12/05/18 05:30 Carcinoembryonic Ag 41.0 ng/mL (0.0-4.7) H 12/03/18 05:30 CA 125 Antigen 83.3 U/mL (0.0-38.1) H 12/03/18 05:30 TSH 0.71 uIU/ml (0.358-3.74) 12/04/18 05:30 PTH Intact 18 pg/mL (15-65) 12/03/18 05:30 Urine Color Yellow 12/01/18 19:04 Urine Appearance Slcloudy 12/01/18 19:04 Urine pH 5.0 (5.0-8.0) 12/01/18 19:04 Ur Specific [place] 1.013 (1.010-1.035) 12/01/18 19:04 Urine Protein 1+ (NEGATIVE) H 12/01/18 19:04 Urine Glucose (UA) Negative (NEGATIVE) 12/01/18 19:04 Urine Ketones Negative (NEGATIVE) 12/01/18 19:04 Urine Blood 1+ (NEGATIVE) H 12/01/18 19:04 Urine Nitrite Negative (NEGATIVE) 12/01/18 19:04 Urine Bilirubin Negative (<2.0 mg/dL) 12/01/18 19:04 Urine Urobilinogen Negative mg/dL (0.2-1.0) 12/01/18 19:04 Ur Leukocyte Esterase Trace (NEGATIVE) 12/01/18 19:04 Urine WBC (Auto) 8 /hpf (3-5) 12/01/18 19:04 Urine RBC (Auto) 3 /hpf (0-3) 12/01/18 19:04 Ur Epithelial Cells Rare /HPF (FEW) 12/01/18 19:04 Urine Bacteria Rare /hpf (NONE SEEN) 12/01/18 19:04 Random Vancomycin 17.2 ug/ml (18-26) L 12/04/18 05:30 Influenza A (Rapid) Negative 12/03/18 02:45 Influenza B (Rapid) Negative 12/03/18 02:45 CBC, BMP 12/05/18 05:30 12/05/18 05:30 Microbiology 12/03/18 01:25 Blood Culture - Preliminary Blood - Peripheral Venous NO GROWTH OBTAINED AFTER 48 HOURS, INCUBATION TO CONTINUE FOR 3 DAYS. 12/01/18 19:04 Blood Culture - Preliminary Blood - Peripheral Venous NO GROWTH OBTAINED AFTER 72 HOURS, INCUBATION TO CONTINUE FOR 2 DAYS. 12/01/18 19:04 Urine Culture - Final Urine - Urine - Catheterized Escherichia Coli 12/01/18 18:40 Blood Culture - Preliminary Blood - Peripheral Venous Staphylococcus Coagulase Neg INR, PTT INR 1.42 (0.83-1.09) H 12/03/18 05:30 Active Medications Acetaminophen (Ofirmev Injection -) 1,000 mg IVPB Q6H PRN PRN Reason: PAIN LEVEL 6-10 Albuterol Sulfate (Ventolin 0.083% Nebulizer Soln -) 1 amp NEB Q6H PRN PRN Reason: SHORT OF BREATH/WHEEZING Calcitonin (Miacalcin Injection -) 270 unit SQ BID [facility] Stop: 12/05/18 21:59 Last Admin: 12/04/18 21:27 Dose: 270 unit Chlorhexidine Gluconate (Hibiclens For Decolonization -) 1 applic TP HS [facility] Last Admin: 12/04/18 21:27 Dose: 1 applic Heparin Sodium (Porcine) (Heparin -) 5,000 unit SQ TID [facility] Last Admin: 12/05/18 06:16 Dose: 5,000 unit Meropenem 500 mg/ Dextrose 100 mls @ 200 mls/hr IVPB BID@0400,1600 [facility] Last Admin: 12/05/18 03:20 Dose: 200 mls/hr Sodium Chloride (1/2 Normal Saline) 1,000 mls @ 150 mls/hr IV ASDIR [facility] Last Admin: 12/04/18 12:14 Dose: 150 mls/hr Potassium Chloride (Potassium Chloride 10 Meq Premix Ivpb -) 10 meq in 100 mls @ 100 mls/hr IVPB Q60M [facility] Stop: 12/05/18 11:29 Insulin Aspart ([facility] -[facility] Last Admin: 12/05/18 06:16 Dose: Not Given Insulin Detemir (Levemir Vial) 10 units SQ [facility] Last Admin: 12/04/18 21:28 Dose: 10 units Mupirocin (Bactroban Ointment (For Decolonization) -) 1 applic NS BID [facility] Stop: 12/08/18 09:59 Last Admin: 12/04/18 21:26 Dose: 1 applic Physical exam more awake S1 S2 RRR lungs no rales, ronchi Abd- soft, NT No edema PLAN IV fluids--decrease his rate and change to half normal saline monitor labs and continue other medications Clinically better Overall prognosis poor broad spectrum antibiotics plan transfer to floor patient is DNR/DI Discussed in detail with patient's sister Discussed with ICU team also Will follow. Problem List - Problems (1) Hypercalcemia Code(s): E83.52 - HYPERCALCEMIA (2) Altered mental status Code(s): R41.82 - ALTERED MENTAL STATUS, UNSPECIFIED Qualifiers: Altered mental status type: unspecified Qualified Code(s): R41.82 - Altered mental status, unspecified (3) Diabetes Code(s): E11.9 - TYPE 2 DIABETES MELLITUS WITHOUT COMPLICATIONS (4) Leukocytosis Code(s): D72.829 - ELEVATED WHITE BLOOD CELL COUNT, UNSPECIFIED Qualifiers: Leukocytosis type: unspecified Qualified Code(s): D72.829 - Elevated white blood cell count, unspecified (5) MARÍA (acute kidney injury) Code(s): N17.9 - ACUTE KIDNEY FAILURE, UNSPECIFIED (6) Lung mass Code(s): R91.8 - OTHER NONSPECIFIC ABNORMAL FINDING OF LUNG FIELD (7) Toxic metabolic encephalopathy Code(s): G92 - TOXIC ENCEPHALOPATHY
[2018-12-05] MEDS: KCL 10 MEQ IVPB 10 MEQ/100 ML INFUS.BAG IVPB SCH ×3 (08:57→10:40)
[2018-12-05] MEDS: POTASSIUM CHLORIDE 10 MEQ in SODIUM CHLORIDE 0.45% 1,000 ML IVPB SCH ×2 (10:00→22:18)
[2018-12-05] MEDS: MUPIROCIN 2% TOPICAL OINTMENT FOR DECOLONIZATION NS SCH ×2 (10:00→22:23)
[2018-12-05 11:59] LABS: ANISOCYTOSIS 2+; HELMET CELLS 1+; MACROCYTOSIS 0; PLATELET ESTIMATE NORMAL
--- NOTE | 2018-12-05 12:11 | PN ---
Teaching Attending Note Name of Resident: Rupa Jacinto ATTENDING PHYSICIAN STATEMENT I saw and evaluated the patient. I reviewed the resident's note and discussed the case with the resident. I agree with the resident's findings and plan as documented. SUBJECTIVE: Pt seen and examined in the ICU. Mental status continues to improve but remains confused. Denies abdominal pain. OBJECTIVE: Vital Signs Period Temp Pulse Resp BP Sys/Barrera Pulse Ox Last 24 Hr 97.7 F-98.9 F 65-86 20-25 124-159/55-98 98-98 Intake & Output 12/02/18 12/03/18 12/04/18 12/05/18 23:59 23:59 23:59 23:59 Intake Total 2400 2690 4100 1900 Output Total 1900 2800 400 Balance 2400 790 1300 1500 Weight 68.039 kg 68.039 kg Gen: awake, confused Heart: RRR Lung: decreased breath sounds at the bases Abd: soft, nontender Ext: no edema CBC, BMP 12/05/18 05:30 12/05/18 05:30 Active Medications Acetaminophen (Ofirmev Injection -) 1,000 mg IVPB Q6H PRN PRN Reason: PAIN LEVEL 6-10 Albuterol Sulfate (Ventolin 0.083% Nebulizer Soln -) 1 amp NEB Q6H PRN PRN Reason: SHORT OF BREATH/WHEEZING Chlorhexidine Gluconate (Hibiclens For Decolonization -) 1 applic TP HS [facility] Last Admin: 12/04/18 21:27 Dose: 1 applic Heparin Sodium (Porcine) (Heparin -) 5,000 unit SQ TID [facility] Last Admin: 12/05/18 06:16 Dose: 5,000 unit Meropenem 500 mg/ Dextrose 100 mls @ 200 mls/hr IVPB BID@0400,1600 [facility] Last Admin: 12/05/18 03:20 Dose: 200 mls/hr Potassium Chloride 10 meq/ (Sodium Chloride) 1,005 mls @ 100 mls/hr IVPB Q10H [facility] Insulin Aspart (Novolog Vial Sliding Scale -) 1 vial SQ BIDAC [facility]; Protocol Last Admin: 12/05/18 06:16 Dose: Not Given Insulin Detemir (Levemir Vial) 10 units SQ HS [facility] Last Admin: 12/04/18 21:28 Dose: 10 units Mupirocin (Bactroban Ointment (For Decolonization) -) 1 applic NS BID [facility] Stop: 12/08/18 09:59 Last Admin: 12/04/18 21:26 Dose: 1 applic ASSESSMENT AND PLAN: Altered Mental Status improving Sepsis UTI/Emphysematous Cystitis appears to be improving Acute Kidney Injury Hypercalcemia Lung Nodule suspicious for malignancy r/o Colon Mass Suspect Metastatic Disease DM - continue antibiotics per ID - change IVF to 1/2NS with KCl - monitor urine output, creatinine - continue calcitonin - monitor calcium - PO as tolerated - aspiration precautions - will need tissue diagnosis likely from one of the osteolytic lesions when stable - DVT prophylaxis - can monitor on floor critical care time spent in reviewing chart, evaluating patient and formulating plan 35 min
--- NOTE | 2018-12-05 12:22 | PN ---
Progress Note, FAMILY READINESS SUPPORT ASSISTANT - Note Progress Note: Selected Entries 12/04/18 12/04/18 12/04/18 02:00 06:00 08:00 Breakfast Supper Temperature 98.9 F 98.5 F 98.6 F 12/04/18 12/04/18 12/04/18 10:00 12:00 14:00 Breakfast Supper Temperature 98.2 F 98.4 F 98.2 F 12/04/18 12/04/18 12/04/18 18:00 20:00 22:36 Breakfast Supper NPO 50% Temperature 98.1 F 98.9 F 12/05/18 12/05/18 12/05/18 02:00 06:00 10:00 Breakfast 75% Supper Temperature 98 F 98.6 F 12/05/18 11:13 Breakfast Supper Temperature 97.7 F Laboratory Tests 12/05/18 05:30 WBC 9.6 On pureed diet/ thin liquid Pt much improved since yesterday, more verbal, speech more precise,improved cognitively. Tolerating diet well. Pt's niece would like to continue on pureed diet for now.
--- NOTE | 2018-12-05 12:48 | PN ---
Physical Exam: SUBJECTIVE: Patient seen and examined this morning in ICU. Continues to be more verbal but remains confused. No acute events overnight OBJECTIVE: Vital Signs Period Temp Pulse Resp BP Sys/Barrera Pulse Ox Last 24 Hr 97.7 F-98.9 F 63-86 20-25 124-159/55-98 98-98 GENERAL: Awake, Alert but confused HEAD: NCAT EYES: PERRL, EOMI ENT: Dry mucous membranes NECK: No JVD LUNGS: Diminished breath sounds at the bases HEART: Regular rate and rhythm, S1, S2 without murmur ABDOMEN: Soft, Midline healed abdominal scar, Nondistended, + bowel sounds, no guarding EXTREMITIES: 2+ pulses, no edema. NEUROLOGICAL: Follows some commands but speech is nonsensical SKIN: Warm, dry Laboratory Results - last 24 hr 12/04/18 12/05/18 12/05/18 05:30 05:30 05:30 WBC 9.6 RBC 3.46 L Hgb 8.2 L Hct 25.6 L MCV 73.9 L MCH 23.7 L MCHC 32.0 RDW 20.7 H Plt Count 150 D MPV No Result Required. 9.1 Absolute Neuts (auto) 8.1 H Neutrophils % 83.8 H Lymphocytes % 9.8 D Monocytes % 5.2 Eosinophils % 1.0 D Basophils % 0.2 Nucleated RBC % 0 Hypochromia 1+ Platelet Estimate Normal Platelet Comment Slt plt clumping Polychromasia 1+ Poikilocytosis 1+ Anisocytosis 2+ Microcytosis 2+ Macrocytosis 0 Helmet Cells 1+ Fragmented RBCs 1+ Sodium 146 H Potassium 3.2 L Chloride 113 H Carbon Dioxide 24 Anion Gap 9 BUN 32 H Creatinine 1.2 Creat Clearance w eGFR 44.16 Random Glucose 135 H Calcium 7.9 L Phosphorus 1.7 L Magnesium 1.6 L Total Bilirubin 0.3 AST 22 ALT 16 Alkaline Phosphatase 134 H Total Protein 5.3 L Albumin 2.2 L Microbiology 12/03/18 01:25 Blood - Peripheral Venous Blood Culture - Preliminary NO GROWTH OBTAINED AFTER 48 HOURS, INCUBATION TO CONTINUE FOR 3 DAYS. 12/01/18 19:04 Blood - Peripheral Venous Blood Culture - Preliminary NO GROWTH OBTAINED AFTER 72 HOURS, INCUBATION TO CONTINUE FOR 2 DAYS. 12/01/18 19:04 Urine - Urine - Catheterized Urine Culture - Final Escherichia Coli 12/01/18 18:40 Blood - Peripheral Venous Blood Culture - Preliminary Staphylococcus Coagulase Neg Active Medications Acetaminophen (Ofirmev Injection -) 1,000 mg IVPB Q6H PRN PRN Reason: PAIN LEVEL 6-10 Albuterol Sulfate (Ventolin 0.083% Nebulizer Soln -) 1 amp NEB Q6H PRN PRN Reason: SHORT OF BREATH/WHEEZING Chlorhexidine Gluconate (Hibiclens For Decolonization -) 1 applic TP HS [facility] Last Admin: 12/04/18 21:27 Dose: 1 applic Heparin Sodium (Porcine) (Heparin -) 5,000 unit SQ TID [facility] Last Admin: 12/05/18 06:16 Dose: 5,000 unit Meropenem 500 mg/ Dextrose 100 mls @ 200 mls/hr IVPB BID@0400,1600 [facility] Last Admin: 12/05/18 03:20 Dose: 200 mls/hr Potassium Chloride 10 meq/ (Sodium Chloride) 1,005 mls @ 100 mls/hr IVPB Q10H [facility] Insulin Aspart (Novolog Vial Sliding Scale -) 1 vial SQ BIDAC [facility]; Protocol Last Admin: 12/05/18 06:16 Dose: Not Given Insulin Detemir (Levemir Vial) 10 units SQ [facility] Last Admin: 12/04/18 21:28 Dose: 10 units Mupirocin (Bactroban Ointment (For Decolonization) -) 1 applic NS BID [facility] Stop: 12/08/18 09:59 Last Admin: 12/04/18 21:26 Dose: 1 applic ASSESSMENT/PLAN: 73 y/o F with PMHx of DM, HTN, Parkinson's disease, COPD, Appendiceal adenocarcinoma, RLL lung nodule was BIBEMA from [facility] due to AMS, was evaluated by Neuro and will be observed in ICU for concerns of Meningitis. #Neuro Toxic metabolic encephalopathy due to infection vs Delirium vs Hypercalcemia; R/ O Meningitis Hx of Parkinsons Disease -CT Head without contrast: No evidence of acute intracranial hemorrhage, edema, midline shift, mass effect, or skull fracture. No CT evidence of acute territorial ischemic changes. -Neurology (Dr. 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 This mass measures approximately 2.0 x 2.2 cm. -CT A/P with Oral contrast: Possible acute diverticulitis versus neoplastic disease. Multiple osteolytic lesions suspicious for metastatic neoplastic disease. -CA 125 83.3, CEA 41, PTH 18 -Ca corrected -Continue Calcitonin 270u BID -Will need tissue bx from the osteolytic lesions -Oncology (Dr. Almodovar) consulted, Appreciate rec's #ID Infection, R/O Meningitis -WBC count resolved -Influenza negative -CXR: No acute pathology. Right lower lung mass previously noted -Urine Cx: Escherichia Coli -Blood Cx: Staphylococcus Coagulase Neg (Likely contaminant) -IV Tylenol for fevers -Continue Vancomycin, Meropenem -ID (Dr. Salas) consulted #Cardio Tachycardia likely response to fever Hx of HTN -EKG NSR, VR 60, QTc 392 -Hold home dose Atenolol #Pulmonary Previously noted lung nodules Hx of COPD -Will require outpatient follow up -Continue Albuterol Nebulizer Q6H PRN -Supplemental O2 PRN to main SpO2 88-92% #Renal MARÍA, Resolved HyperNatremia, Resolved Emphysematous Cystitis -Obstruction (B/L [place]) vs Pre-renal due to Hypoperfusion vs Abx adverse effects -Renal/Kidney US: Mild bilateral hydronephrosis -Continue to monitor -CT A/P with Oral contrast: Air is seen within the urinary bladder wall bilaterally -Urology (Dr. Thrasher) consulted #GI Elevated Alk Phos; AST/ALT WNL Hx of Appendiceal adenocarcinoma -GGT: 291 -NG Tube placed #Endocrine Hx of DM -BGM ISS ACHS -Hold oral hypoglycemics #FEN -PO Fluids -Replete lytes PRN -NPO #PPx -DVT: Heparin Dispo: Transfer to floors Code status: DNR/DNI by family at bedside Visit type - Emergency Visit Emergency Visit: Yes ED Registration Date: 12/01/18 Care time: The patient presented to the Emergency Department on the above date and was hospitalized for further evaluation of their emergent condition. - New Patient This patient is new to me today: No - Critical Care Critical Care patient: Yes Total Critical Care Time (in minutes): 36 Critical Care Statement: The care of this patient involved high complexity decision making to prevent further life threatening deterioration of the patient 's condition and/or to evaluate & treat vital organ system(s) failure or risk of failure.
[2018-12-05] MEDS ORDERED: HEMOQUE TEST 1 EACH EACH ONE (16:28)
[2018-12-05] MEDS ORDERED: PT OWN MED DRAWER 7, Y5N ONE (22:00)
[2018-12-05] MEDS: INSULIN (LEVEMIR) 100 UNITS/ML UNITS SQ SCH (22:18)
[2018-12-05] MEDS: CHLORHEXIDINE GLUCONATE 4% CLEANSER FOR DECOLONIZATION TP SCH (22:26)
[2018-12-06] MEDS: MELATONIN 5 MG TABLETS PO PRN ×2 (03:01→21:17)
[2018-12-06] MEDS ORDERED: PT OWN MED DRAWER 7, Y5N ONE (03:03)
[2018-12-06] MEDS: HEPARIN NA (PORCINE) 5,000 UNITS/ML 1ML VIAL SQ SCH ×3 (05:00→21:16)
[2018-12-06] MEDS: MEROPENEM 500 MG in DEXTROSE 5%-WATER 100 ML IVPB SCH ×2 (05:00→15:34)
[2018-12-06] MEDS: INSULIN SLIDING SCALE (NOVOLOG) 1 VIAL SQ SCH ×2 (06:27→16:49)
[2018-12-06] MEDS: POTASSIUM CHLORIDE 10 MEQ in SODIUM CHLORIDE 0.45% 1,000 ML IVPB SCH ×3 (06:52→16:50)
[2018-12-06 07:25] LABS: BASO % 0.2 % (0-2.0); HEMATOCRIT 26.1 % (32.4-45.2); HEMOGLOBIN 8.5 GM/dL (10.7-15.3); LYMPH % 15.3 % (8-40); MCH 23.9 pg (25.7-33.7); MCHC 32.4 g/dl (32.0-36.0); MEAN CELL VOLUME 73.7 fl (80-96); MEAN PLT VOLUME 9.2 fl (7.5-11.1); MONO % 6.5 % (3.8-10.2); PLATELET COUNT 138 K/MM3 (134-434); RBC 3.55 M/mm3 (3.60-5.2); RDW 20.3 % (11.6-15.6); WHITE BLOOD COUNT 8.7 K/mm3 (4.0-10.0)
[2018-12-06 08:28] LABS: ALBUMIN 2.2 g/dl (3.4-5.0); ALK PHOS 220 U/L (45-117); ANION GAP 10 MMOL/L (8-16); BILIRUBIN,TOTAL 0.6 mg/dL (0.2-1); BLOOD UREA NITROGEN 20 mg/dL (7-18); CHLORIDE 110 mmol/L (98-107); CO2 24 mmol/L (21-32); GLUCOSE,RANDOM 185 mg/dL (74-106); MAGNESIUM 1.6 mg/dL (1.8-2.4); PHOSPHOROUS 1.4 mg/dL (2.5-4.9); POTASSIUM 3.5 mmol/L (3.5-5.1); SGOT/AST 28 U/L (15-37); SGPT/ALT 15 U/L (13-61); SODIUM 143 mmol/L (136-145); TOT PROT 5.5 g/dl (6.4-8.2)
--- NOTE | 2018-12-06 12:06 | PN ---
Progress Note (short form) - Note Progress Note: pt seen/ examined on floor now awake/ somewhat confused no distress all f/u noted Vital Signs Temp 98 F 12/06/18 10:00 Pulse 69 12/06/18 10:00 Resp 20 12/06/18 10:00 BP 149/78 12/06/18 10:00 Pulse Ox 98 12/06/18 09:00 Intake & Output 12/05/18 12/06/18 12/06/18 23:59 11:59 23:59 Intake Total 300 1250 Output Total 1050 700 Balance -750 550 Intake: IV 1000 1/2 Normal Saline 1,000 1000 ml @ 150 mls/hr IV ASDIR NICHOLAS Rx#:[id number] IVPB 300 100 Oral 150 Output: Urine 1050 700 Gregg 1050 700 Other: Voiding Method Indwelling Catheter Indwelling Catheter Bowel Movement No Yes Active Medications Acetaminophen (Ofirmev Injection -) 1,000 mg IVPB Q6H PRN PRN Reason: PAIN LEVEL 6-10 Albuterol Sulfate (Ventolin 0.083% Nebulizer Soln -) 1 amp NEB Q6H PRN PRN Reason: SHORT OF BREATH/WHEEZING Heparin Sodium (Porcine) (Heparin -) 5,000 unit SQ TID NICHOLAS Last Admin: 12/06/18 05:00 Dose: 5,000 unit Meropenem 500 mg/ Dextrose 100 mls @ 200 mls/hr IVPB BID@0400,1600 [facility] Last Admin: 12/06/18 05:00 Dose: 200 mls/hr Potassium Chloride 10 meq/ (Sodium Chloride) 1,005 mls @ 100 mls/hr IVPB Q10H [facility] Last Admin: 12/06/18 10:29 Dose: 100 mls/hr Insulin Aspart (Novolog Vial Sliding Scale -) 1 vial SQ BIDAC [facility]; Protocol Last Admin: 12/06/18 06:27 Dose: 4 units Insulin Detemir (Levemir Vial) 10 units SQ HS NICHOLAS Last Admin: 12/05/18 22:18 Dose: 10 units Melatonin (Melatonin) 5 mg PO HS PRN PRN Reason: INSOMNIA Last Admin: 12/06/18 03:01 Dose: 5 mg CBC, BMP 12/06/18 06:25 12/06/18 06:25 Microbiology 12/01/18 18:40 Blood Culture - Preliminary Blood - Peripheral Venous Staph Hominis Sub Sp Hominis 12/03/18 01:25 Blood Culture - Preliminary Blood - Peripheral Venous NO GROWTH OBTAINED AFTER 72 HOURS, INCUBATION TO CONTINUE FOR 2 DAYS. 12/01/18 19:04 Blood Culture - Preliminary Blood - Peripheral Venous NO GROWTH OBTAINED AFTER 96 HOURS, INCUBATION TO CONTINUE FOR 1 DAYS. Physical exam Awake/ confortable mild anxiety + S1 S2 RRR lungs no rales, ronchi Abd- soft, NT No edema PLAN clinically same continue same treatment abx fluids Will follow. Problem List - Problems (1) Hypercalcemia Code(s): E83.52 - HYPERCALCEMIA (2) Altered mental status Code(s): R41.82 - ALTERED MENTAL STATUS, UNSPECIFIED Qualifiers: Altered mental status type: unspecified Qualified Code(s): R41.82 - Altered mental status, unspecified (3) Diabetes Code(s): E11.9 - TYPE 2 DIABETES MELLITUS WITHOUT COMPLICATIONS (4) Leukocytosis Code(s): D72.829 - ELEVATED WHITE BLOOD CELL COUNT, UNSPECIFIED Qualifiers: Leukocytosis type: unspecified Qualified Code(s): D72.829 - Elevated white blood cell count, unspecified (5) MARÍA (acute kidney injury) Code(s): N17.9 - ACUTE KIDNEY FAILURE, UNSPECIFIED (6) Lung mass Code(s): R91.8 - OTHER NONSPECIFIC ABNORMAL FINDING OF LUNG FIELD (7) Toxic metabolic encephalopathy Code(s): G92 - TOXIC ENCEPHALOPATHY
[2018-12-06] MEDS ORDERED: MAGNESIUM SULF 50% (8.12 MEQ/2 ML-1 GM VIAL) IVPB ONE (12:15)
--- NOTE | 2018-12-06 15:03 | PN ---
Progress Note, Physician History of Present Illness: patient seen and examined at bedside. awake, alert but somewhat more confused than yesterday. oriented to place and person. corrected calcium is 9.4 today. no acute events overnight. - Current Medication List Current Medications: Active Medications Acetaminophen (Ofirmev Injection -) 1,000 mg IVPB Q6H PRN PRN Reason: PAIN LEVEL 6-10 Albuterol Sulfate (Ventolin 0.083% Nebulizer Soln -) 1 amp NEB Q6H PRN PRN Reason: SHORT OF BREATH/WHEEZING Heparin Sodium (Porcine) (Heparin -) 5,000 unit SQ TID [facility] Last Admin: 12/06/18 13:10 Dose: 5,000 unit Meropenem 500 mg/ Dextrose 100 mls @ 200 mls/hr IVPB BID@0400,1600 [facility] Last Admin: 12/06/18 05:00 Dose: 200 mls/hr Potassium Chloride 10 meq/ (Sodium Chloride) 1,005 mls @ 100 mls/hr IVPB Q10H [facility] Last Admin: 12/06/18 10:29 Dose: 100 mls/hr Insulin Aspart (Novolog Vial Sliding Scale -) 1 vial SQ BIDAC [facility]; Protocol Last Admin: 12/06/18 06:27 Dose: 4 units Insulin Detemir (Levemir Vial) 10 units SQ HS [facility] Last Admin: 12/05/18 22:18 Dose: 10 units Melatonin (Melatonin) 5 mg PO HS PRN PRN Reason: INSOMNIA Last Admin: 12/06/18 03:01 Dose: 5 mg - Objective Vital Signs: Vital Signs Temperature 98 F 12/06/18 10:00 Pulse Rate 69 12/06/18 10:00 Respiratory Rate 20 12/06/18 10:00 Blood Pressure 149/78 12/06/18 10:00 O2 Sat by Pulse Oximetry (%) 98 12/06/18 09:00 Constitutional: Yes: No Distress, Calm Cardiovascular: Yes: Regular Rate and Rhythm, S1, S2. No: Murmur Respiratory: Yes: CTA Bilaterally Gastrointestinal: Yes: Normal Bowel Sounds, Soft. No: Tenderness Edema: No Neurological: Yes: Alert, Confusion. No: Unresponsive Labs: CBC, BMP 12/06/18 06:25 12/06/18 06:25 INR, PTT INR 1.42 (0.83-1.09) H 12/03/18 05:30 Impression/Plan Impression/Plan: 73 y/o F NH resident w/ h/o HTN, COPD, DM, HLD, CAD, FM, Hypothyroidism, Depression, Ruptured Appendix 2/2 Appendiceal adenoCA admitted for altered mental status , now with incidental finding of lung mass. altered mental status - improved considerably but today somewhat confused RLL lung mass and LLL lung nodule w/ bone mets, h/o appendiceal adenoCA - pt's family requested bone biopsy to be done here at [facility] - will give vitamin K SQ 5mg x 3 days and consult IR - daily coags Hypercalcemia - corrected ca2+ 9.4 today - no indication for zometa, calcitonin or fluids Curtis Ramesh PGY3 Visit type - Emergency Visit Emergency Visit: No - New Patient This patient is new to me today: No - Critical Care Critical Care patient: No - Discharge Referral Referred to [facility] Med P.C.: No
--- NOTE | 2018-12-06 15:22 | PN ---
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 - Note Progress Note: Selected Entries 12/04/18 12/04/18 12/04/18 02:00 06:00 08:00 Breakfast Supper Temperature 98.9 F 98.5 F 98.6 F 12/04/18 12/04/18 12/04/18 10:00 12:00 14:00 Breakfast Supper Temperature 98.2 F 98.4 F 98.2 F 12/04/18 12/04/18 12/04/18 18:00 20:00 22:36 Breakfast Supper NPO 50% Temperature 98.1 F 98.9 F 12/05/18 12/05/18 12/05/18 02:00 06:00 10:00 Breakfast 75% Supper Temperature 98 F 98.6 F 12/05/18 11:13 Breakfast Supper Temperature 97.7 F Laboratory Tests 12/05/18 05:30 WBC 9.6 Selected Entries 12/05/18 12/05/18 12/05/18 02:00 06:00 10:00 Breakfast 75% Lunch Supper Temperature 98 F 98.6 F 12/05/18 12/05/18 12/05/18 11:13 15:46 20:00 Breakfast Lunch 50% Supper Temperature 97.7 F 97.2 F L 12/05/18 12/06/18 12/06/18 22:55 01:38 05:52 Breakfast Lunch Supper 50% Temperature 97.9 F 97.9 F 12/06/18 12/06/18 10:00 14:00 Breakfast 100% Lunch 75% Supper Temperature 98 F 98.3 F Laboratory Tests 12/06/18 06:25 WBC 8.7 On pureed diet/ thin liquid Improved cognitively since admission but still confused (baseline?). Tolerating diet well. Pt's niece would like to continue on pureed diet for now.
--- NOTE | 2018-12-06 15:35 | PN ---
Progress Note (short form) - Note Progress Note: PULMONARY Family present Gen: awake, confused Heart: RRR Lung: decreased breath sounds at the bases Abd: soft, nontender Ext: no edema Active Medications reviewed labs/radiographs/micro/notes reviewed ASSESSMENT AND PLAN: Altered Mental Status Sepsis UTI/Emphysematous Cystitis appears to be improving Acute Kidney Injury Hypercalcemia Lung Nodule suspicious for malignancy r/o Colon Mass Suspect Metastatic Disease DM - continue antibiotics per ID - monitor urine output, creatinine - continue calcitonin - monitor calcium - PO as tolerated - aspiration precautions - will need tissue diagnosis likely from one of the osteolytic lesions when stable - DVT prophylaxis Aniket SAN MD
[2018-12-06] MEDS: PHYTONADIONE 10 MG/1 ML AMP SQ SCH (17:17)
[2018-12-06] MEDS: INSULIN (LEVEMIR) 100 UNITS/ML UNITS SQ SCH (21:16)
[2018-12-06] MEDS: ACETAMINOPHEN 1000 MG/100 ML VIAL (NON FORMULARY) IVPB PRN (21:17)
--- NOTE | 2018-12-07 00:44 | PN ---
Progress Note (short form) - Note Progress Note: PAtient seen and examined Feels well AFVSS Cor: RSR, No murmurs, No gallops Lungs: Clear to P&A Abd: Soft, Normal bowel sounds, No organomegaly Ext:No significant edema Labs/Meds reviewed A/P 73 y/o F NH resident w/ h/o HTN, COPD, DM, HLD, CAD, FM, Hypothyroidism, Depression, Ruptured Appendix 2/2 Appendiceal adenoCA admitted for altered mental status , now with incidental finding of lung mass. 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 hemicolectomy--0/15 nodes negative altered mental status due tp hypercalcemia for MRI brain For biopsy of lytic lesion. check PT/PTT
[2018-12-07] MEDS: POTASSIUM CHLORIDE 10 MEQ in SODIUM CHLORIDE 0.45% 1,000 ML IVPB SCH ×3 (02:57→22:24)
[2018-12-07] MEDS: MEROPENEM 500 MG in DEXTROSE 5%-WATER 100 ML IVPB SCH ×2 (05:47→17:52)
[2018-12-07] MEDS: HEPARIN NA (PORCINE) 5,000 UNITS/ML 1ML VIAL SQ SCH ×3 (06:02→21:28)
[2018-12-07] MEDS: INSULIN SLIDING SCALE (NOVOLOG) 1 VIAL SQ SCH ×2 (06:02→17:51)
[2018-12-07 07:17] LABS: INR 1.13 (0.83-1.09); PROTHROMBIN TIME (PATIENT) 13.3 SEC (9.7-13.0)
[2018-12-07 07:20] LABS: ACTIVATED PTT 31.7 SECONDS (25.2-36.5)
[2018-12-07] MEDS: ALBUTEROL SO4 0.083% IH SOL 2.5 MG/3 ML VIAL.NEB. NEB PRN ×3 (07:20→20:30)
[2018-12-07] MEDS: PHYTONADIONE 10 MG/1 ML AMP SQ SCH (10:37)
--- NOTE | 2018-12-07 11:34 | PN ---
Progress Note (short form) - Note Progress Note: The patient was awake and alert. She communicated and was responsive to questions. The patient was oriented to person and place. However, she was very confused saying "where did all the people go" and she did not know exactly who they were (denied these people were her family or staff). In addition, she stated that she was being blocked and locked up in a box. Delusions of persecution were evident. The patient just stated that she wanted to go home and did not appear to understand why she was here and that she could not go home as yet due to her medical conditions. Her memory was tested again and immediate memory was 3/3 but short term memory was 0/3. Her concentration was very impaired as she could not spell [place] backwards. The patient was taught a brief relaxation technique (breathing as such: inhale for 4", hold breath for 7" and exhale -pursed lips for 8"). She would not attempt the intervention but stated she would at some point. She appears to be obsessed with believing that she is being kept in a box because she is "bad". It is suspected that her impaired mental status is likely due to her metastatic disease or other toxic condition without evidence of premorbid psychosis, paranoia or delusions. Continued supportive counseling and family counseling are recommended. Problem List - Problems (1) Altered mental status Code(s): R41.82 - ALTERED MENTAL STATUS, UNSPECIFIED Qualifiers: Altered mental status type: unspecified Qualified Code(s): R41.82 - Altered mental status, unspecified (2) Toxic metabolic encephalopathy Code(s): G92 - TOXIC ENCEPHALOPATHY (3) Cognitive and neurobehavioral dysfunction Code(s): F09 - UNSP MENTAL DISORDER DUE TO KNOWN PHYSIOLOGICAL CONDITION; F07.89 - OTH PERSONALITY & BEHAVRL DISORD DUE TO KNOWN PHYSIOL COND
[2018-12-07] MEDS ORDERED: diazePAM 2 MG TABLET PO ONE (12:45)
--- NOTE | 2018-12-07 12:45 | PN ---
Progress Note (short form) - Note Progress Note: Pt examined sister at bedside pt has no c/o pain she is confused but able to say who I am and that she is going for bone biopsy this Sunday pt is more awake today, confused Vital Signs - 24 hr 12/06/18 12/06/18 12/06/18 14:00 18:00 21:00 Temperature 98.3 F 98.6 F 98.2 F Pulse Rate 9 L 78 70 Respiratory 20 20 22 H Rate Blood Pressure 142/81 151/89 158/73 O2 Sat by Pulse 99 Oximetry (%) 12/07/18 12/07/18 02:00 05:59 Temperature 97.9 F 97.8 F Pulse Rate 79 64 Respiratory 20 20 Rate Blood Pressure 156/86 148/72 O2 Sat by Pulse Oximetry (%) Current Medications Generic Name Dose Route Start Last Admin Trade Name Freq PRN Reason Stop Dose Admin Acetaminophen 1,000 mg 12/06/18 19:56 12/06/18 21:17 Ofirmev Injection - IVPB 1,000 mg Q6H PRN Administration PAIN LEVEL 6-10 Albuterol Sulfate 1 amp 12/06/18 19:56 12/07/18 07:20 Ventolin 0.083% Nebulizer Soln - NEB 1 amp Q6H PRN Administration SHORT OF BREATH/WHEEZING Heparin Sodium (Porcine) 5,000 unit 12/06/18 22:00 12/07/18 06:02 Heparin - SQ 5,000 unit TID NICHOLAS Administration Meropenem 500 mg/ Dextrose 100 mls @ 200 mls/hr 12/07/18 04:00 12/07/18 05:47 IVPB 200 mls/hr BID@0400,1600 NICHOLAS Administration Potassium Chloride 10 meq/ 1,005 mls @ 100 mls/hr 12/07/18 02:30 12/07/18 11: 54 Sodium Chloride IVPB 100 mls/hr Q10H NICHOLAS Administration Insulin Aspart 1 vial 12/07/18 07:00 12/07/18 06:02 Novolog Vial Sliding Scale - SQ 2 units BIDAC NICHOLAS Administration Protocol Insulin Detemir 10 units 12/06/18 22:00 12/06/18 21:16 Levemir Vial SQ 10 units HS NICHOLAS Administration Melatonin 5 mg 12/06/18 00:53 12/06/18 21:17 Melatonin PO 5 mg HS PRN Administration INSOMNIA Phytonadione 5 mg 12/06/18 17:00 12/07/18 10:37 Aqua Mephyton Injection - SQ 12/09/18 16:59 5 mg DAILY NICHOLAS Administration Laboratory Results - last 24 hr 12/06/18 12/06/18 12/07/18 16:47 21:15 06:00 PT with INR 13.30 H INR 1.13 H PTT (Actin FS) 31.7 POC Glucometer 330 263 12/07/18 06:00 PT with INR INR PTT (Actin FS) POC Glucometer 167 S1 S2 RRR Oral dry lungs\ ronchi +scattered Abd- soft, NT No edema PLAN nebs will order brain MRI supportive care for bone biopsy on Sunday Problem List - Problems (1) Altered mental status Code(s): R41.82 - ALTERED MENTAL STATUS, UNSPECIFIED Qualifiers: Altered mental status type: unspecified Qualified Code(s): R41.82 - Altered mental status, unspecified (2) CAD (coronary artery disease) Code(s): I25.10 - ATHSCL HEART DISEASE OF [place] CORONARY ARTERY W/O ANG PCTRS (3) Cognitive and neurobehavioral dysfunction Code(s): F09 - UNSP MENTAL DISORDER DUE TO KNOWN PHYSIOLOGICAL CONDITION; F07.89 - OTH PERSONALITY & BEHAVRL DISORD DUE TO KNOWN PHYSIOL COND (4) Diabetes Code(s): E11.9 - TYPE 2 DIABETES MELLITUS WITHOUT COMPLICATIONS (5) HLD (hyperlipidemia) Code(s): E78.5 - HYPERLIPIDEMIA, UNSPECIFIED (6) Hypercalcemia Code(s): E83.52 - HYPERCALCEMIA (7) Hypothyroidism Code(s): E03.9 - HYPOTHYROIDISM, UNSPECIFIED (8) Leukocytosis Code(s): D72.829 - ELEVATED WHITE BLOOD CELL COUNT, UNSPECIFIED Qualifiers: Leukocytosis type: unspecified Qualified Code(s): D72.829 - Elevated white blood cell count, unspecified (9) Emphysematous cystitis Code(s): N30.80 - OTHER CYSTITIS WITHOUT HEMATURIA (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
--- NOTE | 2018-12-07 14:24 | PN ---
Progress Note (short form) - Note Progress Note: PULMONARY Appears stable Less confused Gen: awake, Heart: RRR Lung: decreased breath sounds at the bases Abd: soft, nontender Ext: no edema Active Medications reviewed labs/radiographs/micro/notes reviewed ASSESSMENT AND PLAN: Sepsis UTI/Emphysematous Cystitis appears to be improving Acute Kidney Injury Hypercalcemia Lung Nodule suspicious for malignancy r/o Colon Mass Suspect Metastatic Disease DM - continue antibiotics per ID - monitor urine output, creatinine - monitor calcium - PO as tolerated - aspiration precautions - will have tissue diagnosis likely from one of the osteolytic lesions - DVT prophylaxis Aniket SAN MD
[2018-12-07] MEDS ORDERED: PT OWN MED DRAWER 7, Y5N ONE (21:14)
[2018-12-07] MEDS: INSULIN (LEVEMIR) 100 UNITS/ML UNITS SQ SCH (21:28)
[2018-12-07] MEDS: MELATONIN 5 MG TABLETS PO PRN (21:28)
[2018-12-08] MEDS ORDERED: PT OWN MED DRAWER 7, Y5N ONE ×3 (02:53→21:02)
[2018-12-08] MEDS: MEROPENEM 500 MG in DEXTROSE 5%-WATER 100 ML IVPB SCH ×2 (04:02→15:51)
[2018-12-08] MEDS: HEPARIN NA (PORCINE) 5,000 UNITS/ML 1ML VIAL SQ SCH ×3 (06:01→21:13)
[2018-12-08] MEDS: INSULIN SLIDING SCALE (NOVOLOG) 1 VIAL SQ SCH ×2 (06:02→16:33)
[2018-12-08] MEDS: ALBUTEROL SO4 0.083% IH SOL 2.5 MG/3 ML VIAL.NEB. NEB PRN ×2 (07:24→14:11)
[2018-12-08 08:18] LABS: INR 1.1 (0.83-1.09)
[2018-12-08] MEDS: POTASSIUM CHLORIDE 10 MEQ in SODIUM CHLORIDE 0.45% 1,000 ML IVPB SCH ×3 (09:52→17:43)
[2018-12-08] MEDS: PHYTONADIONE 10 MG/1 ML AMP SQ SCH (09:58)
--- NOTE | 2018-12-08 11:26 | PN ---
Progress Note (short form) - Note Progress Note: Pt examined pt is more awake today, confused Vital Signs - 24 hr 12/07/18 12/07/18 12/07/18 15:18 17:52 21:00 Temperature 98.2 F 97.7 F 99.2 F Pulse Rate 96 H 92 H 94 H Respiratory 20 20 20 Rate Blood Pressure 134/68 155/80 145/69 O2 Sat by Pulse 94 L Oximetry (%) 12/08/18 12/08/18 12/08/18 01:00 05:00 09:00 Temperature 98.1 F 99.0 F 98.2 F Pulse Rate 90 77 89 Respiratory 20 20 18 Rate Blood Pressure 141/92 148/66 144/72 O2 Sat by Pulse Oximetry (%) Current Medications Generic Name Dose Route Start Last Admin Trade Name Freq PRN Reason Stop Dose Admin Acetaminophen 1,000 mg 12/06/18 19:56 12/06/18 21:17 Ofirmev Injection - IVPB 1,000 mg Q6H PRN Administration PAIN LEVEL 6-10 Albuterol Sulfate 1 amp 12/06/18 19:56 12/08/18 07:24 Ventolin 0.083% Nebulizer Soln - NEB 1 amp Q6H PRN Administration SHORT OF BREATH/WHEEZING Heparin Sodium (Porcine) 5,000 unit 12/06/18 22:00 12/08/18 06:01 Heparin - SQ 5,000 unit TID NICHOLAS Administration Meropenem 500 mg/ Dextrose 100 mls @ 200 mls/hr 12/07/18 04:00 12/08/18 04:02 IVPB 200 mls/hr BID@0400,1600 NICHOLAS Administration Potassium Chloride 10 meq/ 1,005 mls @ 100 mls/hr 12/07/18 02:30 12/08/18 09: 52 Sodium Chloride IVPB Not Given Q10H NICHOLAS Insulin Aspart 1 vial 12/07/18 07:00 12/08/18 06:02 Novolog Vial Sliding Scale - SQ 6 units BIDAC NICHOLAS Administration Protocol Insulin Detemir 10 units 12/06/18 22:00 12/07/18 21:28 Levemir Vial SQ 10 units HS NICHOLAS Administration Melatonin 5 mg 12/06/18 00:53 12/07/18 21:28 Melatonin PO 5 mg HS PRN Administration INSOMNIA Phytonadione 5 mg 12/06/18 17:00 12/08/18 09:58 Aqua Mephyton Injection - SQ 12/09/18 16:59 5 mg DAILY NICHOLAS Administration Laboratory Results - last 24 hr 12/07/18 12/07/18 12/07/18 17:08 18:27 21:10 PT with INR INR PTT (Actin FS) POC Glucometer 420 425 237 12/08/18 12/08/18 05:59 06:00 PT with INR 13.00 INR 1.10 H PTT (Actin FS) 35.0 POC Glucometer 275 S1 S2 RRR Oral dry lungs\ ronchi +scattered Abd- soft, NT No edema PLAN nebs brain MRI noted supportive care for bone biopsy on Sunday Problem List - Problems (1) Altered mental status Code(s): R41.82 - ALTERED MENTAL STATUS, UNSPECIFIED Qualifiers: Altered mental status type: unspecified Qualified Code(s): R41.82 - Altered mental status, unspecified (2) CAD (coronary artery disease) Code(s): I25.10 - ATHSCL HEART DISEASE OF [place] CORONARY ARTERY W/O ANG PCTRS (3) Cognitive and neurobehavioral dysfunction Code(s): F09 - UNSP MENTAL DISORDER DUE TO KNOWN PHYSIOLOGICAL CONDITION; F07.89 - OTH PERSONALITY & BEHAVRL DISORD DUE TO KNOWN PHYSIOL COND (4) Diabetes Code(s): E11.9 - TYPE 2 DIABETES MELLITUS WITHOUT COMPLICATIONS (5) HLD (hyperlipidemia) Code(s): E78.5 - HYPERLIPIDEMIA, UNSPECIFIED (6) Hypercalcemia Code(s): E83.52 - HYPERCALCEMIA (7) Hypothyroidism Code(s): E03.9 - HYPOTHYROIDISM, UNSPECIFIED (8) Leukocytosis Code(s): D72.829 - ELEVATED WHITE BLOOD CELL COUNT, UNSPECIFIED Qualifiers: Leukocytosis type: unspecified Qualified Code(s): D72.829 - Elevated white blood cell count, unspecified (9) Emphysematous cystitis Code(s): N30.80 - OTHER CYSTITIS WITHOUT HEMATURIA (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
--- NOTE | 2018-12-08 13:36 | PN ---
Progress Note (short form) - Note Progress Note: PULMONARY Appears stable still confused Gen: awake, Heart: RRR Lung: decreased breath sounds at the bases Abd: soft, nontender Ext: no edema Active Medications reviewed labs/radiographs/micro/notes reviewed ASSESSMENT AND PLAN: Sepsis UTI/Emphysematous Cystitis appears to be improving Acute Kidney Injury Hypercalcemia Lung Nodule suspicious for malignancy r/o Colon Mass Suspect Metastatic Disease DM - continue antibiotics per ID - monitor urine output, creatinine - monitor calcium - PO as tolerated - aspiration precautions - will have tissue diagnosis likely from one of the osteolytic lesions - DVT prophylaxis Aniket SAN MD
[2018-12-08] MEDS: INSULIN (LEVEMIR) 100 UNITS/ML UNITS SQ SCH (21:13)
[2018-12-08] MEDS: MELATONIN 5 MG TABLETS PO PRN (21:13)
[2018-12-08] MEDS ORDERED: INSULIN (NOVOLOG) ASPART 100 UNITS/ML 10ML VIAL ONE (21:38)
[2018-12-09] MEDS: ACETAMINOPHEN 1000 MG/100 ML VIAL (NON FORMULARY) IVPB PRN ×2 (01:29→22:37)
[2018-12-09] MEDS: MEROPENEM 500 MG in DEXTROSE 5%-WATER 100 ML IVPB SCH ×2 (03:01→17:09)
[2018-12-09] MEDS ORDERED: PT OWN MED DRAWER 7, Y5N ONE (03:10)
[2018-12-09] MEDS: POTASSIUM CHLORIDE 10 MEQ in SODIUM CHLORIDE 0.45% 1,000 ML IVPB SCH ×2 (04:52→14:05)
[2018-12-09] MEDS: HEPARIN NA (PORCINE) 5,000 UNITS/ML 1ML VIAL SQ SCH ×3 (06:04→22:37)
[2018-12-09] MEDS: INSULIN SLIDING SCALE (NOVOLOG) 1 VIAL SQ SCH ×2 (06:06→17:09)
[2018-12-09] MEDS ORDERED: INSULIN (NOVOLOG) ASPART 100 UNITS/ML 10ML VIAL ONE ×2 (06:42→06:43)
[2018-12-09] MEDS: ALBUTEROL SO4 0.083% IH SOL 2.5 MG/3 ML VIAL.NEB. NEB PRN ×2 (07:43→18:08)
[2018-12-09 08:04] LABS: INR 1.07 (0.83-1.09); PROTHROMBIN TIME (PATIENT) 12.6 SEC (9.7-13.0)
[2018-12-09 08:07] LABS: ACTIVATED PTT 32.7 SECONDS (25.2-36.5)
[2018-12-09] MEDS: PHYTONADIONE 10 MG/1 ML AMP SQ SCH (10:18)
--- NOTE | 2018-12-09 11:00 | PN ---
Progress Note (short form) - Note Progress Note: PULMONARY Mental status improving. Less confused. Vital Signs Period Temp Pulse Resp BP Sys/Barrera Pulse Ox Last 24 Hr 97.9 F-98.7 F 76-102 18-20 135-158/64-79 97 Gen: NAD at rest Heart: RRR Lung: decreased breath sounds at the bases Abd: soft, nontender Ext: no edema CBC, BMP 12/06/18 06:25 12/06/18 06:25 Active Medications Acetaminophen (Ofirmev Injection -) 1,000 mg IVPB Q6H PRN PRN Reason: PAIN LEVEL 6-10 Last Admin: 12/09/18 01:29 Dose: 1,000 mg Albuterol Sulfate (Ventolin 0.083% Nebulizer Soln -) 1 amp NEB Q6H PRN PRN Reason: SHORT OF BREATH/WHEEZING Last Admin: 12/09/18 07:43 Dose: 1 amp Heparin Sodium (Porcine) (Heparin -) 5,000 unit SQ TID NICHOLAS Last Admin: 12/09/18 06:04 Dose: Not Given Meropenem 500 mg/ Dextrose 100 mls @ 200 mls/hr IVPB BID@0400,1600 [facility] Last Admin: 12/09/18 03:01 Dose: 200 mls/hr Potassium Chloride 10 meq/ (Sodium Chloride) 1,005 mls @ 100 mls/hr IVPB Q10H [facility] Last Admin: 12/09/18 04:52 Dose: Not Given Insulin Aspart (Novolog Vial Sliding Scale -) 1 vial SQ BIDAC [facility]; Protocol Last Admin: 12/09/18 06:06 Dose: 4 units Insulin Detemir (Levemir Vial) 10 units SQ HS NICHOLAS Last Admin: 12/08/18 21:13 Dose: 10 units Melatonin (Melatonin) 5 mg PO HS PRN PRN Reason: INSOMNIA Last Admin: 12/08/18 21:13 Dose: 5 mg A/P Altered Mental Status improving Sepsis UTI/Emphysematous Cystitis appears to be improving Acute Kidney Injury Hypercalcemia Lung Nodule suspicious for malignancy r/o Colon Mass Suspect Metastatic Disease DM - continue antibiotics per ID - monitor urine output, creatinine - monitor calcium - PO as tolerated - aspiration precautions - for bone biopsy - DVT prophylaxis
--- NOTE | 2018-12-09 11:03 | PN ---
Progress Note (short form) - Note Progress Note: pt seen/examined chart reviewed all f/u noted sister at bedside more awake/alert Vital Signs Temp 97.9 F 12/09/18 08:49 Pulse 78 12/09/18 08:49 Resp 20 12/09/18 08:49 BP 150/73 12/09/18 08:49 Pulse Ox 97 12/08/18 20:50 Intake & Output 12/08/18 12/08/18 12/09/18 11:59 23:59 11:59 Intake Total 624 896 9172 Output Total 600 1300 1250 Balance 280 -800 -250 Intake: IV 750 300 700 left forearm #20 12/03/18 750 300 700 IVPB 100 100 200 Oral 30 100 100 Output: Urine 600 1300 1250 Gregg 600 1300 1250 Other: Voiding Method Indwelling Catheter Indwelling Catheter Bowel Movement Yes # Bowel Movements 2 Active Medications Acetaminophen (Ofirmev Injection -) 1,000 mg IVPB Q6H PRN PRN Reason: PAIN LEVEL 6-10 Last Admin: 12/09/18 01:29 Dose: 1,000 mg Albuterol Sulfate (Ventolin 0.083% Nebulizer Soln -) 1 amp NEB Q6H PRN PRN Reason: SHORT OF BREATH/WHEEZING Last Admin: 12/09/18 07:43 Dose: 1 amp Heparin Sodium (Porcine) (Heparin -) 5,000 unit SQ TID [facility] Last Admin: 12/09/18 06:04 Dose: Not Given Meropenem 500 mg/ Dextrose 100 mls @ 200 mls/hr IVPB BID@0400,1600 [facility] Last Admin: 12/09/18 03:01 Dose: 200 mls/hr Potassium Chloride 10 meq/ (Sodium Chloride) 1,005 mls @ 100 mls/hr IVPB Q10H [facility] Last Admin: 12/09/18 04:52 Dose: Not Given Insulin Aspart (Novolog Vial Sliding Scale -) 1 vial SQ BIDAC [facility]; Protocol Last Admin: 12/09/18 06:06 Dose: 4 units Insulin Detemir (Levemir Vial) 10 units SQ HS NICHOLAS Last Admin: 12/08/18 21:13 Dose: 10 units Melatonin (Melatonin) 5 mg PO HS PRN PRN Reason: INSOMNIA Last Admin: 12/08/18 21:13 Dose: 5 mg CBC, BMP 12/06/18 06:25 12/06/18 06:25 BGM readings noted physical exam S1 S2 RRR lungs\ ronchi +scattered Abd- soft, NT No edema neuro--more alert and awake PLAN clinically better brain MRI noted / reviewed----done without contrast May need to do with contrast----will discuss with oncology Bone biopsy today continue present care Physical therapy Will follow discussed again with patient's sister. increase Levemir as blood sugar runs on the high side Discussed with nursing staff also. Problem List - Problems (1) Hypercalcemia Code(s): E83.52 - HYPERCALCEMIA (2) Altered mental status Code(s): R41.82 - ALTERED MENTAL STATUS, UNSPECIFIED Qualifiers: Altered mental status type: unspecified Qualified Code(s): R41.82 - Altered mental status, unspecified (3) Diabetes Code(s): E11.9 - TYPE 2 DIABETES MELLITUS WITHOUT COMPLICATIONS (4) Leukocytosis Code(s): D72.829 - ELEVATED WHITE BLOOD CELL COUNT, UNSPECIFIED Qualifiers: Leukocytosis type: unspecified Qualified Code(s): D72.829 - Elevated white blood cell count, unspecified (5) MARÍA (acute kidney injury) Code(s): N17.9 - ACUTE KIDNEY FAILURE, UNSPECIFIED (6) Lung mass Code(s): R91.8 - OTHER NONSPECIFIC ABNORMAL FINDING OF LUNG FIELD (7) Toxic metabolic encephalopathy Code(s): G92 - TOXIC ENCEPHALOPATHY
--- NOTE | 2018-12-09 13:09 | PN ---
Progress Note, DE ALCOHOLIZER - Note Progress Note: Selected Entries 12/08/18 12/08/18 12/08/18 01:00 05:00 09:00 Breakfast Lunch Temperature 98.1 F 99.0 F 98.2 F 12/08/18 12/08/18 12/08/18 09:11 13:40 17:14 Breakfast 50% Lunch 50% Temperature 98.7 F 98.2 F 12/08/18 12/09/18 12/09/18 20:49 01:00 05:00 Breakfast Lunch Temperature 98.1 F 98.1 F 98.3 F 12/09/18 08:49 Breakfast Lunch Temperature 97.9 F Laboratory Tests 12/06/18 06:25 WBC 8.7 Tolerating puree/thin liquid. Diet upgrade was held, per niece last week, however pt is doing well , tolerated toast last night and asking for buttered roll. Pt's niece is in agreement with diet upgrade to soft foods. REC: Soft diet, thin liquid Monitor tolerance
[2018-12-09] MEDS: MELATONIN 5 MG TABLETS PO PRN (22:37)
[2018-12-09] MEDS: INSULIN (LEVEMIR) 100 UNITS/ML UNITS SQ SCH (22:37)
[2018-12-10] MEDS: POTASSIUM CHLORIDE 10 MEQ in SODIUM CHLORIDE 0.45% 1,000 ML IVPB SCH ×4 (01:08→21:34)
[2018-12-10] MEDS ORDERED: PT OWN MED DRAWER 7, Y5N ONE (04:22)
[2018-12-10] MEDS: MEROPENEM 500 MG in DEXTROSE 5%-WATER 100 ML IVPB SCH ×3 (04:23→16:15)
[2018-12-10] MEDS: HEPARIN NA (PORCINE) 5,000 UNITS/ML 1ML VIAL SQ SCH ×3 (05:27→21:43)
[2018-12-10] MEDS: INSULIN SLIDING SCALE (NOVOLOG) 1 VIAL SQ SCH ×2 (06:44→16:20)
--- NOTE | 2018-12-10 10:46 | PN ---
Progress Note (short form) - Note Progress Note: PULMONARY Mental status improving but still some confusion. Vital Signs Period Temp Pulse Resp BP Sys/Barrera Pulse Ox Last 24 Hr 97.2 F-98.3 F 72-103 12-24 140-171/66-85 97-99 Gen: NAD at rest Heart: RRR Lung: decreased breath sounds at the bases Abd: soft, nontender Ext: no edema CBC, BMP 12/06/18 06:25 12/06/18 06:25 Active Medications Acetaminophen (Ofirmev Injection -) 1,000 mg IVPB Q6H PRN PRN Reason: PAIN LEVEL 6-10 Last Admin: 12/09/18 22:37 Dose: 1,000 mg Albuterol Sulfate (Ventolin 0.083% Nebulizer Soln -) 1 amp NEB Q6H PRN PRN Reason: SHORT OF BREATH/WHEEZING Last Admin: 12/09/18 18:08 Dose: 1 amp Heparin Sodium (Porcine) (Heparin -) 5,000 unit SQ TID [facility] Last Admin: 12/10/18 05:27 Dose: 5,000 unit Meropenem 500 mg/ Dextrose 100 mls @ 200 mls/hr IVPB BID@0400,1600 [facility] Last Admin: 12/10/18 04:23 Dose: 200 mls/hr Potassium Chloride 10 meq/ (Sodium Chloride) 1,005 mls @ 100 mls/hr IVPB Q10H [facility] Last Admin: 12/10/18 01:08 Dose: 100 mls/hr Insulin Aspart (Novolog Vial Sliding Scale -) 1 vial SQ BIDAC [facility]; Protocol Last Admin: 12/10/18 06:44 Dose: 4 units Insulin Detemir (Levemir Vial) 14 units SQ HS NICHOLAS Last Admin: 12/09/18 22:37 Dose: 14 units Melatonin (Melatonin) 5 mg PO HS PRN PRN Reason: INSOMNIA Last Admin: 12/09/18 22:37 Dose: 5 mg A/P Altered Mental Status improving Sepsis UTI/Emphysematous Cystitis appears to be improving Acute Kidney Injury Hypercalcemia Lung Nodule suspicious for malignancy r/o Colon Mass Suspect Metastatic Disease DM - continue antibiotics per ID - monitor urine output, creatinine - monitor calcium - PO as tolerated - aspiration precautions - f/u bone biopsy - DVT prophylaxis
--- NOTE | 2018-12-10 11:33 | PN ---
Progress Note (short form) - Note Progress Note: Pt examined pt is more awake today, confused family with her Vital Signs - 24 hr 12/09/18 12/09/18 12/09/18 12:36 12:55 13:05 Temperature Pulse Rate 90 Pulse Rate [ 89 103 H Left Lower Arm] Respiratory 17 Rate Respiratory 12 15 Rate [Left Lower Arm] Blood Pressure 171/85 H Blood Pressure 146/83 152/82 [Left Lower Arm ] O2 Sat by Pulse 99 Oximetry (%) O2 Sat by Pulse 99 99 Oximetry (%) [ Left Lower Arm] 12/09/18 12/09/18 12/09/18 13:10 14:10 14:41 Temperature 97.2 F L 97.2 F L Pulse Rate 82 90 90 Pulse Rate [ Left Lower Arm] Respiratory 15 20 20 Rate Respiratory Rate [Left Lower Arm] Blood Pressure 152/82 140/71 140/71 Blood Pressure [Left Lower Arm ] O2 Sat by Pulse 99 97 Oximetry (%) O2 Sat by Pulse Oximetry (%) [ Left Lower Arm] 12/09/18 12/09/18 12/09/18 18:00 21:00 22:00 Temperature 98.1 F 97.3 F L Pulse Rate 72 93 H Pulse Rate [ Left Lower Arm] Respiratory 24 H 18 18 Rate Respiratory Rate [Left Lower Arm] Blood Pressure 145/72 142/76 Blood Pressure [Left Lower Arm ] O2 Sat by Pulse 97 Oximetry (%) O2 Sat by Pulse Oximetry (%) [ Left Lower Arm] 12/10/18 12/10/18 12/10/18 05:47 07:53 09:00 Temperature 98.3 F 97.6 F Pulse Rate 75 82 Pulse Rate [ Left Lower Arm] Respiratory 20 20 20 Rate Respiratory Rate [Left Lower Arm] Blood Pressure 140/66 146/74 Blood Pressure [Left Lower Arm ] O2 Sat by Pulse 97 Oximetry (%) O2 Sat by Pulse Oximetry (%) [ Left Lower Arm] Current Medications Generic Name Dose Route Start Last Admin Trade Name Freq PRN Reason Stop Dose Admin Acetaminophen 1,000 mg 12/06/18 19:56 12/09/18 22:37 Ofirmev Injection - IVPB 1,000 mg Q6H PRN Administration PAIN LEVEL 6-10 Albuterol Sulfate 1 amp 12/06/18 19:56 12/09/18 18:08 Ventolin 0.083% Nebulizer Soln - NEB 1 amp Q6H PRN Administration SHORT OF BREATH/WHEEZING Heparin Sodium (Porcine) 5,000 unit 12/06/18 22:00 12/10/18 05:27 Heparin - SQ 5,000 unit TID NICHOLAS Administration Meropenem 500 mg/ Dextrose 100 mls @ 200 mls/hr 12/07/18 04:00 12/10/18 04:23 IVPB 200 mls/hr BID@0400,1600 NICHOLAS Administration Potassium Chloride 10 meq/ 1,005 mls @ 100 mls/hr 12/07/18 02:30 12/10/18 11: 40 Sodium Chloride IVPB Not Given Q10H NICHOLAS Insulin Aspart 1 vial 12/07/18 07:00 12/10/18 06:44 Novolog Vial Sliding Scale - SQ 4 units BIDAC NICHOLAS Administration Protocol Insulin Detemir 14 units 12/09/18 11:23 12/09/18 22:37 Levemir Vial SQ 14 units HS NICHOLAS Administration Melatonin 5 mg 12/06/18 00:53 12/09/18 22:37 Melatonin PO 5 mg HS PRN Administration INSOMNIA Laboratory Results - last 24 hr 12/09/18 12/09/18 12/10/18 17:08 22:19 05:25 POC Glucometer 174 233 219 S1 S2 RRR Oral dry lungs\ ronchi +scattered Abd- soft, NT No edema PLAN nebs s/p bone biopsy on iv antibiotics-- will need to know duration supportive care nebs O2 Problem List - Problems (1) Altered mental status Code(s): R41.82 - ALTERED MENTAL STATUS, UNSPECIFIED Qualifiers: Altered mental status type: unspecified Qualified Code(s): R41.82 - Altered mental status, unspecified (2) CAD (coronary artery disease) Code(s): I25.10 - ATHSCL HEART DISEASE OF [place] CORONARY ARTERY W/O ANG PCTRS (3) Cognitive and neurobehavioral dysfunction Code(s): F09 - UNSP MENTAL DISORDER DUE TO KNOWN PHYSIOLOGICAL CONDITION; F07.89 - OTH PERSONALITY & BEHAVRL DISORD DUE TO KNOWN PHYSIOL COND (4) Diabetes Code(s): E11.9 - TYPE 2 DIABETES MELLITUS WITHOUT COMPLICATIONS (5) HLD (hyperlipidemia) Code(s): E78.5 - HYPERLIPIDEMIA, UNSPECIFIED (6) Hypercalcemia Code(s): E83.52 - HYPERCALCEMIA (7) Hypothyroidism Code(s): E03.9 - HYPOTHYROIDISM, UNSPECIFIED (8) Leukocytosis Code(s): D72.829 - ELEVATED WHITE BLOOD CELL COUNT, UNSPECIFIED Qualifiers: Leukocytosis type: unspecified Qualified Code(s): D72.829 - Elevated white blood cell count, unspecified (9) Emphysematous cystitis Code(s): N30.80 - OTHER CYSTITIS WITHOUT HEMATURIA (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
[2018-12-10] MEDS: ALBUTEROL SO4 0.083% IH SOL 2.5 MG/3 ML VIAL.NEB. NEB PRN (12:51)
[2018-12-10] MEDS: ACETAMINOPHEN 1000 MG/100 ML VIAL (NON FORMULARY) IVPB PRN (15:40)
[2018-12-10] MEDS: INSULIN (LEVEMIR) 100 UNITS/ML UNITS SQ SCH (21:43)
[2018-12-11] MEDS: ALBUTEROL SO4 0.083% IH SOL 2.5 MG/3 ML VIAL.NEB. NEB PRN ×2 (00:51→11:20)
[2018-12-11] MEDS ORDERED: PT OWN MED DRAWER 7, Y5N ONE ×2 (02:57→14:58)
[2018-12-11] MEDS: MEROPENEM 500 MG in DEXTROSE 5%-WATER 100 ML IVPB SCH ×2 (03:34→15:04)
[2018-12-11] MEDS: POTASSIUM CHLORIDE 10 MEQ in SODIUM CHLORIDE 0.45% 1,000 ML IVPB SCH ×2 (06:43→17:05)
[2018-12-11] MEDS: HEPARIN NA (PORCINE) 5,000 UNITS/ML 1ML VIAL SQ SCH ×3 (06:43→21:27)
[2018-12-11] MEDS: INSULIN SLIDING SCALE (NOVOLOG) 1 VIAL SQ SCH ×2 (06:43→17:41)
--- NOTE | 2018-12-11 11:41 | PN ---
Progress Note, FACILITIES MAINTENANCE TECHNICIAN - Note Progress Note: Selected Entries 12/10/18 12/10/18 12/10/18 05:47 07:53 10:26 Breakfast 50% Diet Tolerated Fair Lunch Temperature 98.3 F 97.6 F 12/10/18 12/10/18 12/10/18 14:17 18:42 22:00 Breakfast Diet Tolerated Fair Fair Lunch 50% Temperature 98.3 F 98.6 F 97.9 F 12/11/18 09:18 Breakfast 50% Diet Tolerated Fair Lunch Temperature MRI head noted Pt remains on puree/thin liquids. Pt's sister feels she is more confused. Pt asking for solid food. The family gave her eggs and she had trouble coordinating mastication with deglutition, with squirreling of the food in her buccal cavity. Pt choked on eggs this am, given by her sister and she feels it was aspirated.She feels she has more phlegm, coughs but unable to expectorate. Speech/Swallowing reassessed. Pt is verbal, speech precise, confused, impaired memory.Good vocal quality. Delayed but brisk swallow with intermittent cough following continuous drinking of water. Aspiration? REC: MBS to r/o aspiration, and provide most liberal diet pt can tolerate. [place] thick liquid and Ensure compact until mbs performed. Pending MD orders
--- NOTE | 2018-12-11 13:03 | PN ---
Progress Note (short form) - Note Progress Note: Pt examined pt is confused family with her Vital Signs - 24 hr 12/10/18 12/10/18 12/10/18 14:17 18:42 21:00 Temperature 98.3 F 98.6 F Pulse Rate 94 H 95 H Respiratory 18 18 18 Rate Blood Pressure 135/61 144/70 O2 Sat by Pulse 98 Oximetry (%) 12/10/18 22:00 Temperature 97.9 F Pulse Rate 85 Respiratory 18 Rate Blood Pressure 147/73 O2 Sat by Pulse Oximetry (%) Current Medications Generic Name Dose Route Start Last Admin Trade Name Freq PRN Reason Stop Dose Admin Albuterol Sulfate 1 amp 12/06/18 19:56 12/11/18 11:20 Ventolin 0.083% Nebulizer Soln - NEB 1 amp Q6H PRN Administration SHORT OF BREATH/WHEEZING Heparin Sodium (Porcine) 5,000 unit 12/06/18 22:00 12/11/18 06:43 Heparin - SQ 5,000 unit TID NICHOLAS Administration Meropenem 500 mg/ Dextrose 100 mls @ 200 mls/hr 12/07/18 04:00 12/11/18 03:34 IVPB 200 mls/hr BID@0400,1600 NICHOLAS Administration Potassium Chloride 10 meq/ 1,005 mls @ 100 mls/hr 12/07/18 02:30 12/11/18 06: 43 Sodium Chloride IVPB 100 mls/hr Q10H NICHOLAS Administration Insulin Aspart 1 vial 12/07/18 07:00 12/11/18 06:43 Novolog Vial Sliding Scale - SQ 4 units BIDAC NICHOLAS Administration Protocol Insulin Detemir 14 units 12/09/18 11:23 12/10/18 21:43 Levemir Vial SQ 14 units HS NICHOLAS Administration Melatonin 5 mg 12/06/18 00:53 12/09/18 22:37 Melatonin PO 5 mg HS PRN Administration INSOMNIA Laboratory Results - last 24 hr 12/10/18 12/10/18 12/11/18 16:19 21:37 04:23 POC Glucometer 342 408 238 12/11/18 12:30 POC Glucometer 264 S1 S2 RRR Oral dry lungs\ ronchi +scattered Abd- soft, NT No edema PLAN nebs s/p bone biopsy on iv antibiotics-- will need to know duration supportive care nebs received a call from pathologist-- bone biopsy positive-- neuroendocrine pathology O2 Problem List - Problems (1) Altered mental status Code(s): R41.82 - ALTERED MENTAL STATUS, UNSPECIFIED Qualifiers: Altered mental status type: unspecified Qualified Code(s): R41.82 - Altered mental status, unspecified (2) CAD (coronary artery disease) Code(s): I25.10 - ATHSCL HEART DISEASE OF [place] CORONARY ARTERY W/O ANG PCTRS (3) Cognitive and neurobehavioral dysfunction Code(s): F09 - UNSP MENTAL DISORDER DUE TO KNOWN PHYSIOLOGICAL CONDITION; F07.89 - OTH PERSONALITY & BEHAVRL DISORD DUE TO KNOWN PHYSIOL COND (4) Diabetes Code(s): E11.9 - TYPE 2 DIABETES MELLITUS WITHOUT COMPLICATIONS (5) HLD (hyperlipidemia) Code(s): E78.5 - HYPERLIPIDEMIA, UNSPECIFIED (6) Hypercalcemia Code(s): E83.52 - HYPERCALCEMIA (7) Hypothyroidism Code(s): E03.9 - HYPOTHYROIDISM, UNSPECIFIED (8) Leukocytosis Code(s): D72.829 - ELEVATED WHITE BLOOD CELL COUNT, UNSPECIFIED Qualifiers: Leukocytosis type: unspecified Qualified Code(s): D72.829 - Elevated white blood cell count, unspecified (9) Emphysematous cystitis Code(s): N30.80 - OTHER CYSTITIS WITHOUT HEMATURIA (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
--- NOTE | 2018-12-11 14:44 | PN ---
Progress Note, Physician History of Present Illness: PULMONARY AWAKE,CONFUSED,-RESP DISTRESS - Current Medication List Current Medications: Active Medications Albuterol Sulfate (Ventolin 0.083% Nebulizer Soln -) 1 amp NEB Q6H PRN PRN Reason: SHORT OF BREATH/WHEEZING Last Admin: 12/11/18 11:20 Dose: 1 amp Heparin Sodium (Porcine) (Heparin -) 5,000 unit SQ TID NICHOLAS Last Admin: 12/11/18 06:43 Dose: 5,000 unit Meropenem 500 mg/ Dextrose 100 mls @ 200 mls/hr IVPB BID@0400,1600 [facility] Last Admin: 12/11/18 03:34 Dose: 200 mls/hr Potassium Chloride 10 meq/ (Sodium Chloride) 1,005 mls @ 100 mls/hr IVPB Q10H [facility] Last Admin: 12/11/18 06:43 Dose: 100 mls/hr Insulin Aspart (Novolog Vial Sliding Scale -) 1 vial SQ BIDAC [facility]; Protocol Last Admin: 12/11/18 06:43 Dose: 4 units Insulin Detemir (Levemir Vial) 16 units SQ HS NICHOLAS Melatonin (Melatonin) 5 mg PO HS PRN PRN Reason: INSOMNIA Last Admin: 12/09/18 22:37 Dose: 5 mg - Objective Vital Signs: Vital Signs Temperature 98.0 F 12/11/18 14:34 Pulse Rate 107 H 12/11/18 14:34 Respiratory Rate 18 12/11/18 14:34 Blood Pressure 148/71 12/11/18 14:34 O2 Sat by Pulse Oximetry (%) 98 12/10/18 21:00 Constitutional: Yes: Well Nourished, Calm Eyes: Yes: WNL HENT: Yes: WNL Neck: Yes: WNL Cardiovascular: Yes: Regular Rate and Rhythm, S1, S2 Respiratory: Yes: Diminished Gastrointestinal: Yes: Normal Bowel Sounds, Soft Extremities: Yes: WNL Edema: No Labs: CBC, BMP Problem List - Problems (1) Altered mental status Code(s): R41.82 - ALTERED MENTAL STATUS, UNSPECIFIED Qualifiers: Altered mental status type: unspecified Qualified Code(s): R41.82 - Altered mental status, unspecified (2) CAD (coronary artery disease) Code(s): I25.10 - ATHSCL HEART DISEASE OF [place] CORONARY ARTERY W/O ANG PCTRS (3) Cognitive and neurobehavioral dysfunction Code(s): F09 - UNSP MENTAL DISORDER DUE TO KNOWN PHYSIOLOGICAL CONDITION; F07.89 - OTH PERSONALITY & BEHAVRL DISORD DUE TO KNOWN PHYSIOL COND (4) Diabetes Code(s): E11.9 - TYPE 2 DIABETES MELLITUS WITHOUT COMPLICATIONS (5) Emphysematous cystitis Code(s): N30.80 - OTHER CYSTITIS WITHOUT HEMATURIA (6) Hypercalcemia Code(s): E83.52 - HYPERCALCEMIA (7) Osteolytic lesion due to metastasis Code(s): C79.51 - SECONDARY MALIGNANT NEOPLASM OF BONE (8) Back pain Code(s): M54.9 - DORSALGIA, UNSPECIFIED (9) Toxic metabolic encephalopathy Code(s): G92 - TOXIC ENCEPHALOPATHY Assessment/Plan A/P Altered Mental Status improving Sepsis UTI/Emphysematous Cystitis appears to be improving Acute Kidney Injury Hypercalcemia Lung Nodule suspicious for malignancy r/o Colon Mass Suspect Metastatic Disease DM - antibiotics per ID - monitor urine output, creatinine - monitor calcium - PO as tolerated - aspiration precautions - f/u bone biopsy - DVT prophylaxis DR MOON
[2018-12-11 14:58] LABS: BASO % 0.6 % (0-2.0); EOS % 3.7 % (0-4.5); HEMATOCRIT 26.6 % (32.4-45.2); HEMOGLOBIN 8.7 GM/dL (10.7-15.3); LYMPH % 12.1 % (8-40); MCH 24.3 pg (25.7-33.7); MCHC 32.8 g/dl (32.0-36.0); MEAN PLT VOLUME 9.5 fl (7.5-11.1); MONO % 5.6 % (3.8-10.2); PLATELET COUNT 173 K/MM3 (134-434); RDW 21.3 % (11.6-15.6); WHITE BLOOD COUNT 9.5 K/mm3 (4.0-10.0)
[2018-12-11 15:40] LABS: ALBUMIN 2.4 g/dl (3.4-5.0); ALK PHOS 503 U/L (45-117); ANION GAP 6 MMOL/L (8-16); BILIRUBIN,TOTAL 0.5 mg/dL (0.2-1); BLOOD UREA NITROGEN 12 mg/dL (7-18); CALCIUM 8.8 mg/dL (8.5-10.1); CHLORIDE 101 mmol/L (98-107); CO2 28 mmol/L (21-32); CREATININE 0.8 mg/dL (0.55-1.3); GLUCOSE,RANDOM 234 mg/dL (74-106); POTASSIUM 4.2 mmol/L (3.5-5.1); SGOT/AST 43 U/L (15-37); SGPT/ALT 26 U/L (13-61); SODIUM 135 mmol/L (136-145); TOT PROT 5.8 g/dl (6.4-8.2)
[2018-12-11 16:41] LABS: ANISOCYTOSIS 2+; OVALOCYTE 1+; PLATELET ESTIMATE DECREASED; TARGET CELLS 1+
[2018-12-11] MEDS ORDERED: IBUPROFEN 600 MG TABLET (FP) PO PRN (17:18)
--- NOTE | 2018-12-11 17:19 | PN ---
Progress Note (short form) - Note Progress Note: remains confused day #9 meropenem s/p bone biopsy mcneil removed today Vital Signs Period Temp Pulse Resp BP Sys/Barrera Pulse Ox Last 24 Hr 97.9 F-98.6 F 85-107 18-18 144-148/70-73 95-98 cor-rrr lungs clear abd soft,nt ext no edema CBC, BMP 12/11/18 14:30 12/11/18 14:30 Microbiology 12/03/18 01:25 Blood - Peripheral Venous Blood Culture - Final NO GROWTH AFTER 5 DAYS INCUBATION 12/01/18 18:40 Blood - Peripheral Venous Blood Culture - Final Staph Hominis Sub Sp Hominis 12/01/18 19:04 Blood - Peripheral Venous Blood Culture - Final NO GROWTH AFTER 5 DAYS INCUBATION 12/01/18 19:04 Urine - Urine - Catheterized Urine Culture - Final Escherichia Coli a/p Ecoli uti-emphysematous cystitis- day #9 meropenem will d/c antiiboitics in am- to complete 10 days pen allergy probable malignancy- awaiting bone biopsy results d/w family at bedside
[2018-12-11] MEDS ORDERED: INSULIN (NOVOLOG) ASPART 100 UNITS/ML 10ML VIAL ONE (17:31)
--- NOTE | 2018-12-11 18:03 | PN ---
Progress Note (short form) - Note Progress Note: Patient seen and examined No specific complaints although family states on minimal movement significant pains Last Vital Signs Temp Pulse Resp BP Pulse Ox 98.0 F 107 H 18 148/71 95 12/11/18 14:34 12/11/18 14:34 12/11/18 14:34 12/11/18 14:34 12/11/18 09:00 HEENT: VLADIMIR, EOM Intact Oropharynx: No thrush, No mucositis Cor: RSR, No murmurs, No gallops Lungs: Clear to P&A Abd: Soft, Normal bowel sounds, No organomegaly Ext:No significant edema CBC, BMP 12/11/18 14:30 12/11/18 14:30 Current Medications Generic Name Dose Route Start Last Admin Trade Name Freq PRN Reason Stop Dose Admin Albuterol Sulfate 1 amp 12/06/18 19:56 12/11/18 11:20 Ventolin 0.083% Nebulizer Soln - NEB 1 amp Q6H PRN Administration SHORT OF BREATH/WHEEZING Heparin Sodium (Porcine) 5,000 unit 12/06/18 22:00 12/11/18 15:04 Heparin - SQ 5,000 unit TID NICHOLAS Administration Meropenem 500 mg/ Dextrose 100 mls @ 200 mls/hr 12/07/18 04:00 12/11/18 15:04 IVPB 200 mls/hr BID@0400,1600 NICHOLAS Administration Ibuprofen 600 mg 12/11/18 17:18 Motrin - PO Q8H PRN PAIN LEVEL 1-5 Insulin Aspart 1 vial 12/07/18 07:00 12/11/18 17:41 Novolog Vial Sliding Scale - SQ 6 units BIDAC NICHOLAS Administration Protocol Insulin Detemir 16 units 12/11/18 22:00 Levemir Vial SQ HS NICHOLAS Melatonin 5 mg 12/06/18 00:53 12/09/18 22:37 Melatonin PO 5 mg HS PRN Administration INSOMNIA Impression: Bone biopsy results pending Family to decide approach thereafter.
--- NOTE | 2018-12-11 18:26 | PATH ---
Surgical Pathology Report Patient Name: SULEIMAN HASKINS Med. Rec. #: [id number] /Age/Gender: 1945 (Age: 73) / F Account: [id number] Location: [facility] MED/SURG Taken: 12/09/2018 Received: 12/09/2018 Reported: 12/11/2018 Physicians: Gustavo Jacinto M.D. 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 TUMOR NECROSIS PRESENT. Comment: Immunohistochemical stained slides demonstrate tumor cells to be positive for CD56 and Synaptophysin, supports neuroendocrine differentiation. 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 Napsin A and Chromogranin are negative. P63 and CK 7 are noncontributory. Clinical correlation is recommended. Immunohistochemistry stains CD56, CDX-2, SATB2, and Napsin A performed at [place], [place] ([id number]) interpreted at [facility]. Immunohistochemistry stains AE1/AE3, CK7, CK20, Synaptophysin, Chromogranin, P63, and TTF-1 performed and interpreted at [facility]. Positive and negative controls (internal if applicable) show appropriate results. This case was discussed with Dr. Cano, 12/11/2018. Electronically Signed Joey Botello M.D. Gross Description Received in formalin labeled "iliac bone biopsy," are 2 bedolla, cylindrical portions of tissue, possibly consistent with bone. The specimens measure 0.5 and 0.7 cm in length and average 0.1 cm in diameter. The specimens are submitted in toto in one cassette, following decalcification. 12/09/201812/09/2018
[2018-12-11] MEDS: INSULIN (LEVEMIR) 100 UNITS/ML UNITS SQ SCH (21:27)
[2018-12-11] MEDS: MELATONIN 5 MG TABLETS PO PRN (21:28)
[2018-12-12] MEDS ORDERED: PT OWN MED DRAWER 7, Y5N ONE ×2 (03:46→15:18)
[2018-12-12] MEDS: MEROPENEM 500 MG in DEXTROSE 5%-WATER 100 ML IVPB SCH ×2 (03:56→15:20)
[2018-12-12] MEDS: HEPARIN NA (PORCINE) 5,000 UNITS/ML 1ML VIAL SQ SCH ×3 (06:01→22:02)
[2018-12-12] MEDS: INSULIN SLIDING SCALE (NOVOLOG) 1 VIAL SQ SCH ×2 (06:47→17:36)
[2018-12-12 08:45] LABS: BASO % 0.6 % (0-2.0); EOS % 3.5 % (0-4.5); HEMATOCRIT 26.2 % (32.4-45.2); HEMOGLOBIN 8.5 GM/dL (10.7-15.3); LYMPH % 15.5 % (8-40); MCH 24.2 pg (25.7-33.7); MCHC 32.6 g/dl (32.0-36.0); MEAN CELL VOLUME 74.2 fl (80-96); MEAN PLT VOLUME 8.9 fl (7.5-11.1); MONO % 5.8 % (3.8-10.2); NEUT % 74.6 % (42.8-82.8); PLATELET COUNT 171 K/MM3 (134-434); RBC 3.53 M/mm3 (3.60-5.2); RDW 20.9 % (11.6-15.6); WHITE BLOOD COUNT 11.2 K/mm3 (4.0-10.0)
[2018-12-12 09:41] LABS: ALBUMIN 2.4 g/dl (3.4-5.0); ALK PHOS 484 U/L (45-117); ANION GAP 5 MMOL/L (8-16); BILIRUBIN,TOTAL 0.5 mg/dL (0.2-1); BLOOD UREA NITROGEN 16 mg/dL (7-18); CALCIUM 9.2 mg/dL (8.5-10.1); CHLORIDE 103 mmol/L (98-107); CO2 29 mmol/L (21-32); CREATININE 0.8 mg/dL (0.55-1.3); GLUCOSE,RANDOM 187 mg/dL (74-106); POTASSIUM 4.1 mmol/L (3.5-5.1); SGOT/AST 39 U/L (15-37); SGPT/ALT 24 U/L (13-61); SODIUM 137 mmol/L (136-145); TOT PROT 5.9 g/dl (6.4-8.2)
--- NOTE | 2018-12-12 10:40 | PN ---
Progress Note (short form) - Note Progress Note: PULMONARY Mental status improving but still some confusion. 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 Discussed results with sister, Beatriz. Apparently when she was first diagnosed with appendiceal cancer, the patient had poor comprehension of her disease. Vital Signs Period Temp Pulse Resp BP Sys/Barrera Pulse Ox Last 24 Hr 98.0 F-98.9 F 88-110 18-20 105-148/59-79 96 Gen: NAD at rest Heart: RRR Lung: decreased breath sounds at the bases Abd: soft, nontender Ext: no edema CBC, BMP 12/12/18 08:15 12/12/18 08:15 Active Medications Albuterol Sulfate (Ventolin 0.083% Nebulizer Soln -) 1 amp NEB Q6H PRN PRN Reason: SHORT OF BREATH/WHEEZING Last Admin: 12/11/18 11:20 Dose: 1 amp Heparin Sodium (Porcine) (Heparin -) 5,000 unit SQ TID NICHOLAS Last Admin: 12/12/18 06:01 Dose: 5,000 unit Meropenem 500 mg/ Dextrose 100 mls @ 200 mls/hr IVPB BID@0400,1600 NICHOLAS Last Admin: 12/12/18 03:56 Dose: 200 mls/hr Ibuprofen (Motrin -) 600 mg PO Q8H PRN PRN Reason: PAIN LEVEL 1-5 Insulin Aspart (Novolog Vial Sliding Scale -) 1 vial SQ BIDAC [facility]; Protocol Last Admin: 12/12/18 06:47 Dose: 4 units Insulin Detemir (Levemir Vial) 16 units SQ HS NICHOLAS Last Admin: 12/11/18 21:27 Dose: 16 units Melatonin (Melatonin) 5 mg PO HS PRN PRN Reason: INSOMNIA Last Admin: 12/11/18 21:28 Dose: 5 mg A/P Altered Mental Status improving Sepsis UTI/Emphysematous Cystitis appears to be improving Acute Kidney Injury Hypercalcemia Lung Nodule suspicious for malignancy Metastatic Appendiceal Carcinoma DM - complete antibiotics per ID - monitor urine output, creatinine - monitor calcium, may need to restart calcitonin - oncology f/u - lung nodule may not be related to appendiceal carcinoma but discussed with sister, likely will not pursue chemotherapy or other treatments aside from comfort measures so will defer further biopsy at this time - pt with poor understanding of her disease from the initial cancer and still confused with memory impairment, will defer informing pt of diagnosis per family request - PO as tolerated - aspiration precautions - DVT prophylaxis
--- NOTE | 2018-12-12 11:17 | PN ---
Progress Note (short form) - Note Progress Note: Pt examined ambulated with physical therapy today pt is confused , pleasant no complaints of pain Vital Signs - 24 hr 12/11/18 12/11/18 12/11/18 14:34 18:39 21:00 Temperature 98.0 F 98.9 F Pulse Rate 107 H 110 H Respiratory 18 18 Rate Blood Pressure 148/71 140/72 O2 Sat by Pulse 96 Oximetry (%) 12/11/18 12/12/18 12/12/18 22:00 02:00 06:00 Temperature 98.4 F 98.2 F 98.4 F Pulse Rate 108 H 102 H 88 Respiratory 18 20 20 Rate Blood Pressure 131/79 139/69 105/59 L O2 Sat by Pulse Oximetry (%) 12/12/18 09:47 Temperature 98.1 F Pulse Rate 92 H Respiratory 20 Rate Blood Pressure 136/61 O2 Sat by Pulse Oximetry (%) Current Medications Generic Name Dose Route Start Last Admin Trade Name Freq PRN Reason Stop Dose Admin Albuterol Sulfate 1 amp 12/06/18 19:56 12/11/18 11:20 Ventolin 0.083% Nebulizer Soln - NEB 1 amp Q6H PRN Administration SHORT OF BREATH/WHEEZING Heparin Sodium (Porcine) 5,000 unit 12/06/18 22:00 12/12/18 06:01 Heparin - SQ 5,000 unit TID NICHOLAS Administration Meropenem 500 mg/ Dextrose 100 mls @ 200 mls/hr 12/07/18 04:00 12/12/18 03:56 IVPB 200 mls/hr BID@0400,1600 NICHOLAS Administration Ibuprofen 600 mg 12/11/18 17:18 Motrin - PO Q8H PRN PAIN LEVEL 1-5 Insulin Aspart 1 vial 12/07/18 07:00 12/12/18 06:47 Novolog Vial Sliding Scale - SQ 4 units BIDAC NICHOLAS Administration Protocol Insulin Detemir 16 units 12/11/18 22:00 12/11/18 21:27 Levemir Vial SQ 16 units HS NICHOLAS Administration Melatonin 5 mg 12/06/18 00:53 12/11/18 21:28 Melatonin PO 5 mg HS PRN Administration INSOMNIA Laboratory Results - last 24 hr 12/11/18 12/11/18 12/11/18 12:30 14:25 14:30 WBC 9.5 RBC 3.60 Hgb 8.7 L Hct 26.6 L MCV 74.0 L MCH 24.3 L MCHC 32.8 RDW 21.3 H Plt Count 173 D MPV 9.5 Absolute Neuts (auto) 7.5 Total Counted 100 Neutrophils % 78.0 Neutrophils % (Manual) 72.0 Band Neutrophils % 3.0 Lymphocytes % 12.1 D Lymphocytes % (Manual) 11.0 D Monocytes % 5.6 Monocytes % (Manual) 8 Eosinophils % 3.7 D Eosinophils % (Manual) 4.0 D Basophils % 0.6 Nucleated RBC % 0 Metamyelocytes 2 D Platelet Estimate Decreased Platelet Comment No clumping noted Polychromasia 1+ Anisocytosis 2+ Microcytosis 1+ Target Cells 1+ Ovalocytes 1+ Sodium Potassium Chloride Carbon Dioxide Anion Gap BUN Creatinine Creat Clearance w eGFR POC Glucometer 264 Random Glucose Calcium Total Bilirubin AST ALT Alkaline Phosphatase Ammonia 30.30 Total Protein Albumin 12/11/18 12/11/18 12/11/18 14:30 16:47 16:50 WBC RBC Hgb Hct MCV MCH MCHC RDW Plt Count MPV Absolute Neuts (auto) Total Counted Neutrophils % Neutrophils % (Manual) Band Neutrophils % Lymphocytes % Lymphocytes % (Manual) Monocytes % Monocytes % (Manual) Eosinophils % Eosinophils % (Manual) Basophils % Nucleated RBC % Metamyelocytes Platelet Estimate Platelet Comment Polychromasia Anisocytosis Microcytosis Target Cells Ovalocytes Sodium 135 L Potassium 4.2 Chloride 101 Carbon Dioxide 28 Anion Gap 6 L BUN 12 Creatinine 0.8 Creat Clearance w eGFR > 60 POC Glucometer 408 254 Random Glucose 234 H Calcium 8.8 Total Bilirubin 0.5 AST 43 H ALT 26 Alkaline Phosphatase 503 H Ammonia Total Protein 5.8 L Albumin 2.4 L 12/11/18 12/12/18 12/12/18 21:26 05:57 08:15 WBC 11.2 H RBC 3.53 L Hgb 8.5 L Hct 26.2 L MCV 74.2 L MCH 24.2 L MCHC 32.6 RDW 20.9 H Plt Count 171 MPV 8.9 Absolute Neuts (auto) 8.4 H Total Counted Neutrophils % 74.6 Neutrophils % (Manual) Band Neutrophils % Lymphocytes % 15.5 D Lymphocytes % (Manual) Monocytes % 5.8 Monocytes % (Manual) Eosinophils % 3.5 Eosinophils % (Manual) Basophils % 0.6 Nucleated RBC % 0 Metamyelocytes Platelet Estimate Platelet Comment Polychromasia Anisocytosis Microcytosis Target Cells Ovalocytes Sodium Potassium Chloride Carbon Dioxide Anion Gap BUN Creatinine Creat Clearance w eGFR POC Glucometer 209 233 Random Glucose Calcium Total Bilirubin AST ALT Alkaline Phosphatase Ammonia Total Protein Albumin 12/12/18 08:15 WBC RBC Hgb Hct MCV MCH MCHC RDW Plt Count MPV Absolute Neuts (auto) Total Counted Neutrophils % Neutrophils % (Manual) Band Neutrophils % Lymphocytes % Lymphocytes % (Manual) Monocytes % Monocytes % (Manual) Eosinophils % Eosinophils % (Manual) Basophils % Nucleated RBC % Metamyelocytes Platelet Estimate Platelet Comment Polychromasia Anisocytosis Microcytosis Target Cells Ovalocytes Sodium 137 Potassium 4.1 Chloride 103 Carbon Dioxide 29 Anion Gap 5 L BUN 16 Creatinine 0.8 Creat Clearance w eGFR > 60 POC Glucometer Random Glucose 187 H Calcium 9.2 Total Bilirubin 0.5 AST 39 H ALT 24 Alkaline Phosphatase 484 H Ammonia Total Protein 5.9 L Albumin 2.4 L S1 S2 RRR lungs\ no ronchi Abd- soft, NT No edema PLAN nebs on iv antibiotics--dc today per ID supportive care nebs poorly differentiated Neuroendocrine carcinoma O2 will start Calcitonin Problem List - Problems (1) Altered mental status Code(s): R41.82 - ALTERED MENTAL STATUS, UNSPECIFIED Qualifiers: Altered mental status type: unspecified Qualified Code(s): R41.82 - Altered mental status, unspecified (2) CAD (coronary artery disease) Code(s): I25.10 - ATHSCL HEART DISEASE OF [place] CORONARY ARTERY W/O ANG PCTRS (3) Cognitive and neurobehavioral dysfunction Code(s): F09 - UNSP MENTAL DISORDER DUE TO KNOWN PHYSIOLOGICAL CONDITION; F07.89 - OTH PERSONALITY & BEHAVRL DISORD DUE TO KNOWN PHYSIOL COND (4) Diabetes Code(s): E11.9 - TYPE 2 DIABETES MELLITUS WITHOUT COMPLICATIONS (5) HLD (hyperlipidemia) Code(s): E78.5 - HYPERLIPIDEMIA, UNSPECIFIED (6) Hypercalcemia Code(s): E83.52 - HYPERCALCEMIA (7) Hypothyroidism Code(s): E03.9 - HYPOTHYROIDISM, UNSPECIFIED (8) Leukocytosis Code(s): D72.829 - ELEVATED WHITE BLOOD CELL COUNT, UNSPECIFIED Qualifiers: Leukocytosis type: unspecified Qualified Code(s): D72.829 - Elevated white blood cell count, unspecified (9) Emphysematous cystitis Code(s): N30.80 - OTHER CYSTITIS WITHOUT HEMATURIA (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
[2018-12-12 11:21] LABS: ANISOCYTOSIS 1+; MACROCYTOSIS 0; PLATELET ESTIMATE NORMAL
[2018-12-12] MEDS ORDERED: TUBERCULIN PPD 5 TU/0.1ML SYRINGE (IN PATIENT USE ONLY) ID ONE (11:50)
[2018-12-12] MEDS ORDERED: CALCITONIN - SALMON SYNTHETIC 400 UNIT/2 ML VIAL SQ SCH ×2 (12:00→14:00)
--- NOTE | 2018-12-12 12:13 | PN ---
Progress Note, FRUIT RAISER - Note Progress Note: Selected Entries 12/11/18 12/11/18 12/11/18 09:18 14:34 18:39 Breakfast 50% Diet Tolerated Fair Fair Lunch 25% Temperature 98.0 F 98.9 F 12/11/18 12/12/18 12/12/18 22:00 02:00 06:00 Breakfast Diet Tolerated Lunch Temperature 98.4 F 98.2 F 98.4 F 12/12/18 12/12/18 09:47 10:07 Breakfast 50% Diet Tolerated Fair Lunch Temperature 98.1 F Laboratory Tests 12/11/18 12/12/18 14:30 08:15 WBC 9.5 11.2 H Pt on pureed diet/nectar thick liquid. MBS completed yesterday. Rec made.
--- NOTE | 2018-12-12 12:19 | CON.GU ---
Consult - History of Present Illness History of Present Illness: 73 yo female admitted with urosepsis, hemorrhagic emphysematous cystitis. Prior to admission had another uti.The cause of uti appears to be incomplete bladder emptying. Also with newly diagnosed poorly differentiated neuroendocrine tumor with poor prognosis - Past Medical History Cardio/Vascular: Yes: CAD, HTN, Hyperlipdemia Pulmonary: Yes: COPD Psych: Yes: Anxiety, Depression Rheumatology: Yes: Fibromyalgia Endocrine: Yes: Diabetes Mellitus, Hypothyroidism - Alcohol/Substance Use Hx Alcohol Use: No History of Substance Use: reports: None - Smoking History Smoking history: Former smoker Have you smoked in the past 12 months: No If you are a former smoker, when did you quit?: 26 yrs ago - Social History Usual Living Arrangement: Retirement ADL: Support Services History of Recent Travel: No Home Medications - Allergies Allergies/Adverse Reactions: Allergies Allergy/AdvReac Type Severity Reaction Status Date / Time Penicillins Allergy Intermediate Verified 12/01/18 18:07 - Home Medications Home Medications: Ambulatory Orders Atenolol [Tenormin -] 50 mg PO DAILY 05/18/14 Glipizide [Glipizide ER] 5 mg PO DAILY 05/06/15 Albuterol 0.083% Nebulizer Lindsey [Ventolin 0.083% Nebulizer Soln -] 1 amp NEB Q6H PRN #30 amp 11/28/18 Heparin - 5,000 unit SQ BID #60 vial 11/28/18 Pramipexole Di-HCl [Mirapex] 0.5 mg PO TID #60 tablet 11/28/18 traMADol HCL [Ultram -] 50 mg PO Q6H PRN #30 tablet MDD 4 11/28/18 Acetaminophen 650 mg PO Q6H 12/01/18 Menthol [Bengay Ultra Strength] 1 each TP DAILY 12/01/18 Physical Exam- Vital Signs: Vital Signs Temperature 98.1 F 12/12/18 09:47 Pulse Rate 92 H 12/12/18 09:47 Respiratory Rate 20 12/12/18 09:47 Blood Pressure 136/61 12/12/18 09:47 O2 Sat by Pulse Oximetry (%) 95 12/12/18 09:00 Labs: CBC, BMP 12/12/18 08:15 12/12/18 08:15 Problem List - Problems (1) Recurrent sepsis due to urinary tract infection Assessment/Plan: in light of poor prognosis, advise chronic mcneil, family in agreement Code(s): A41.9 - SEPSIS, UNSPECIFIED ORGANISM; N39.0 - URINARY TRACT INFECTION, SITE NOT SPECIFIED
--- NOTE | 2018-12-12 12:32 | PN ---
Progress Note, CLAIM APPROVER - Note Progress Note: Selected Entries 12/11/18 12/11/18 12/11/18 09:18 14:34 18:39 Breakfast 50% Diet Tolerated Fair Fair Lunch 25% Temperature 98.0 F 98.9 F 12/11/18 12/12/18 12/12/18 22:00 02:00 06:00 Breakfast Diet Tolerated Lunch Temperature 98.4 F 98.2 F 98.4 F 12/12/18 12/12/18 09:47 10:07 Breakfast 50% Diet Tolerated Fair Lunch Temperature 98.1 F Laboratory Tests 12/11/18 12/12/18 14:30 08:15 WBC 9.5 11.2 H Pt did welll during MBS. Diet not yet upgraded still on Dys puree/nectar. Limited appetite, c/o "same thing every day" Suggest trial of DYS Chopped with 1-2 soft, moist cohesive foods such as pancakes with syrup, muffin,Soft crustless sandwiches,moist scrambled eggs, crustless pasta Thin liquid,Ensure plus. grilled cheese,
[2018-12-12] MEDS: POLYETHYLENE GLYCOL 3350 119 GM BTL PO SCH ×2 (17:36→22:02)
--- NOTE | 2018-12-12 18:37 | PN ---
Progress Note (short form) - Note Progress Note: PAtient seen and examined Feels well AFVSS Cor: RSR, No murmurs, No gallops Lungs: Clear to P&A Abd: Soft, Normal bowel sounds, No organomegaly Ext:No significant edema Labs/Meds reviewed A/P 73 y/o F [facility] resident w/ h/o HTN, COPD, DM, HLD, CAD, FM, Hypothyroidism, Depression, Ruptured Appendix 2/2 Appendiceal adenoCA admitted for altered mental status , now with incidental finding of lung mass. 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 hemicolectomy--0/15 nodes negative altered mental status due tp hypercalcemia. improved but waxing and waning ? baseline dementiac/w poorly differentiated adenoca. MRI brain negative Bone bx c/w poorly differentiated ca with neuroendocrine features. immunostains c/w recurrent appendiceal cancer L3 fx/lytic lesions discussed poor performance styatus, comorbidities,poorly diff. cancer with patients health care proxies. Given overall status/kypercalcemia hospice care recommended.
[2018-12-12] MEDS: MELATONIN 5 MG TABLETS PO PRN (22:02)
[2018-12-12] MEDS: INSULIN (LEVEMIR) 100 UNITS/ML UNITS SQ SCH (22:08)
[2018-12-13] MEDS: HEPARIN NA (PORCINE) 5,000 UNITS/ML 1ML VIAL SQ SCH ×3 (06:01→21:43)
[2018-12-13] MEDS: INSULIN SLIDING SCALE (NOVOLOG) 1 VIAL SQ SCH ×2 (06:01→18:50)
[2018-12-13] MEDS: ALBUTEROL SO4 0.083% IH SOL 2.5 MG/3 ML VIAL.NEB. NEB PRN (07:37)
[2018-12-13] MEDS ORDERED: PT OWN MED DRAWER 7, Y5N ONE ×2 (09:06→21:36)
[2018-12-13] MEDS: POLYETHYLENE GLYCOL 3350 119 GM BTL PO SCH ×2 (10:22→21:46)
[2018-12-13] MEDS ORDERED: oxyCODONE HCL 5 MG TABLET PO PRN (10:50)
--- NOTE | 2018-12-13 10:50 | PN ---
Progress Note (short form) - Note Progress Note: pt seen/ examined chart reviewed awake/ comfortable sister at bedside reports periods of pain at times - sometimes unbearable Vital Signs Temp 98.5 F 12/13/18 05:00 Pulse 99 H 12/13/18 05:00 Resp 18 12/13/18 05:00 BP 135/66 12/13/18 05:00 Pulse Ox 97 12/12/18 21:00 Intake & Output 12/12/18 12/12/18 12/13/18 11:59 23:59 11:59 Intake Total 150 250 20 Output Total 500 900 420 Balance -350 -650 -400 Intake: IVPB 100 Oral 150 150 20 Output: Urine 500 900 420 Gregg 900 420 Straight Cath 500 Other: Voiding Method Diaper Diaper Indwelling Catheter Bowel Movement No No Active Medications Albuterol Sulfate (Ventolin 0.083% Nebulizer Soln -) 1 amp NEB Q6H PRN PRN Reason: SHORT OF BREATH/WHEEZING Last Admin: 12/13/18 07:37 Dose: 1 amp Heparin Sodium (Porcine) (Heparin -) 5,000 unit SQ TID [facility] Last Admin: 12/13/18 06:01 Dose: 5,000 unit Ibuprofen (Motrin -) 600 mg PO Q8H PRN PRN Reason: PAIN LEVEL 1-5 Last Admin: 12/12/18 22:01 Dose: 600 mg Insulin Aspart (Novolog Vial Sliding Scale -) 1 vial SQ BIDAC [facility]; Protocol Last Admin: 12/13/18 06:01 Dose: 2 units Insulin Detemir (Levemir Vial) 16 units SQ HS NICHOLAS Last Admin: 12/12/18 22:08 Dose: 16 units Melatonin (Melatonin) 5 mg PO HS PRN PRN Reason: INSOMNIA Last Admin: 12/12/18 22:02 Dose: 5 mg Morphine Sulfate (Morphine Sulfate) 1 mg IVPUSH Q6H PRN PRN Reason: PAIN LEVEL 6-10 Polyethylene Glycol (Miralax (For Daily Use) -) 17 gm PO BID NICHOLAS Last Admin: 12/13/18 10:22 Dose: 17 gm CBC, BMP 12/12/18 08:15 12/12/18 08:15 Physical Exam. awake/ somewhat confused S1 S2 RRR Lungs decreased Abd- soft,NT PLAN Metastatic Neuroendocrine tumor Pain control discussed in detail again with sisters requesting - no further blood tests/ treatment requesting hospice care-- Elvia Discussed with Precious from Palliative care / case checker also will follow. Discussed with Dr. Peres also today Problem List - Problems (1) Hypercalcemia Code(s): E83.52 - HYPERCALCEMIA (2) Altered mental status Code(s): R41.82 - ALTERED MENTAL STATUS, UNSPECIFIED Qualifiers: Altered mental status type: unspecified Qualified Code(s): R41.82 - Altered mental status, unspecified (3) Diabetes Code(s): E11.9 - TYPE 2 DIABETES MELLITUS WITHOUT COMPLICATIONS (4) Leukocytosis Code(s): D72.829 - ELEVATED WHITE BLOOD CELL COUNT, UNSPECIFIED Qualifiers: Leukocytosis type: unspecified Qualified Code(s): D72.829 - Elevated white blood cell count, unspecified (5) MARÍA (acute kidney injury) Code(s): N17.9 - ACUTE KIDNEY FAILURE, UNSPECIFIED (6) Lung mass Code(s): R91.8 - OTHER NONSPECIFIC ABNORMAL FINDING OF LUNG FIELD (7) Toxic metabolic encephalopathy Code(s): G92 - TOXIC ENCEPHALOPATHY
--- NOTE | 2018-12-13 11:19 | PN ---
Progress Note (short form) - Note Progress Note: Patient seen and examined Pain on movement - concentrated to lower spine - area of L3 Spoke with family- no treatment , but for pain management Last Vital Signs Temp Pulse Resp BP Pulse Ox 98.5 F 99 H 18 135/66 97 12/13/18 05:00 12/13/18 05:00 12/13/18 05:00 12/13/18 05:00 12/12/18 21:00 HEENT: VLADIMIR, EOM Intact Oropharynx: No thrush, No mucositis Cor: RSR, No murmurs, No gallops Lungs: Clear to P&A Abd: Soft, Normal bowel sounds, No organomegaly Ext:No significant edema Skin: No rashes, Integument intact CBC, BMP 12/12/18 08:15 12/12/18 08:15 Current Medications Generic Name Dose Route Start Last Admin Trade Name Freq PRN Reason Stop Dose Admin Albuterol Sulfate 1 amp 12/06/18 19:56 12/13/18 07:37 Ventolin 0.083% Nebulizer Soln - NEB 1 amp Q6H PRN Administration SHORT OF BREATH/WHEEZING Heparin Sodium (Porcine) 5,000 unit 12/06/18 22:00 12/13/18 06:01 Heparin - SQ 5,000 unit TID NICHOLAS Administration Ibuprofen 600 mg 12/11/18 17:18 12/12/18 22:01 Motrin - PO 600 mg Q8H PRN Administration PAIN LEVEL 1-5 Insulin Aspart 1 vial 12/07/18 07:00 12/13/18 06:01 Novolog Vial Sliding Scale - SQ 2 units BIDAC NICHOLAS Administration Protocol Insulin Detemir 16 units 12/11/18 22:00 12/12/18 22:08 Levemir Vial SQ 16 units HS NICHOLSA Administration Melatonin 5 mg 12/06/18 00:53 12/12/18 22:02 Melatonin PO 5 mg HS PRN Administration INSOMNIA Morphine Sulfate 1 mg 12/13/18 10:44 Morphine Sulfate IVPUSH Q6H PRN PAIN LEVEL 6-10 Oxycodone HCl 5 mg 12/13/18 10:50 12/13/18 11:08 Roxicodone - PO 5 mg Q6H PRN Administration PAIN LEVEL 4 - 6 Polyethylene Glycol 17 gm 12/12/18 12:00 12/13/18 10:22 Miralax (For Daily Use) - PO 17 gm BID NICHOLAS Administration Impresseion : Poorly differentiated adenoca with neuroendocrine features compatible with appendiceal primary. Extensive bone mets L3 pathologic fx Anemia Pain management Patient does not request pain meds . Will change to oxycodone 5 mg q 6 h -not prn- and add fentanyl 25 mcg Family does not want any localized RT to spine
[2018-12-13] MEDS ORDERED: FENTANYL PATCH WASTE TD PRN (11:22)
[2018-12-13] MEDS ORDERED: fentaNYL 25mcg/hr PATCH.TD72 TD SCH (12:00)
--- NOTE | 2018-12-13 14:13 | PN ---
Progress Note, FORGING DIES FINAL FINISHER - Note Progress Note: Selected Entries 12/11/18 12/11/18 12/11/18 09:18 14:34 18:39 Breakfast 50% Diet Tolerated Fair Fair Lunch 25% Temperature 98.0 F 98.9 F 12/11/18 12/12/18 12/12/18 22:00 02:00 06:00 Breakfast Diet Tolerated Lunch Temperature 98.4 F 98.2 F 98.4 F 12/12/18 12/12/18 09:47 10:07 Breakfast 50% Diet Tolerated Fair Lunch Temperature 98.1 F Laboratory Tests 12/11/18 12/12/18 14:30 08:15 WBC 9.5 11.2 H Pt did welll during MBS. Diet not yet upgraded still on Dys puree/nectar. Limited appetite, c/o "same thing every day" Diet not yet upgraded but family bringing her food. Suggest trial of DYS Chopped with 1-2 soft, moist cohesive foods such as pancakes with syrup, muffin,Soft crustless sandwiches,moist scrambled eggs, crustless grilled cheese,pasta Thin liquid,Ensure plus.
--- NOTE | 2018-12-13 14:25 | PN ---
Progress Note (short form) - Note Progress Note: Denies CP or SOB. (+) LBP Afebrile. No acute events overnight. Intake & Output 12/10/18 12/11/18 12/12/18 12/13/18 23:59 23:59 23:59 23:59 Intake Total 2400 1440 400 20 Output Total 2050 2500 1400 420 Balance 350 -1060 -1000 -400 Last Vital Signs Temp Pulse Resp BP Pulse Ox 98.7 F 18 L 97 H 141/70 97 12/13/18 10:00 12/13/18 10:00 12/13/18 10:00 12/13/18 10:00 12/13/18 09:00 Active Medications Albuterol Sulfate (Ventolin 0.083% Nebulizer Soln -) 1 amp NEB Q6H PRN PRN Reason: SHORT OF BREATH/WHEEZING Last Admin: 12/13/18 07:37 Dose: 1 amp Fentanyl (Duragesic 25mcg Patch -) 1 patch TD Q72H [facility] Stop: 12/20/18 11:59 Heparin Sodium (Porcine) (Heparin -) 5,000 unit SQ TID [facility] Last Admin: 12/13/18 06:01 Dose: 5,000 unit Ibuprofen (Motrin -) 600 mg PO Q8H PRN PRN Reason: PAIN LEVEL 1-5 Last Admin: 12/12/18 22:01 Dose: 600 mg Insulin Aspart (Novolog Vial Sliding Scale -) 1 vial SQ BIDAC [facility]; Protocol Last Admin: 12/13/18 06:01 Dose: 2 units Insulin Detemir (Levemir Vial) 16 units SQ HS [facility] Last Admin: 12/12/18 22:08 Dose: 16 units Melatonin (Melatonin) 5 mg PO HS PRN PRN Reason: INSOMNIA Last Admin: 12/12/18 22:02 Dose: 5 mg Miscellaneous (Duragesic Patch Waste) 1 each TD PRN PRN PRN Reason: PAIN Morphine Sulfate (Morphine Sulfate) 1 mg IVPUSH Q6H PRN PRN Reason: PAIN LEVEL 6-10 Oxycodone HCl (Roxicodone -) 5 mg PO Q6H PRN PRN Reason: PAIN LEVEL 1-5 Polyethylene Glycol (Miralax (For Daily Use) -) 17 gm PO BID [facility] Last Admin: 12/13/18 10:22 Dose: 17 gm Gen: NAD at rest Heart: RRR Lung: decreased breath sounds at the bases Abd: soft, nontender Ext: no edema Laboratory Results - last 24 hr 12/12/18 12/12/18 12/13/18 16:41 22:10 05:48 POC Glucometer 204 171 170 A/P Metastatic Appendiceal Carcinoma Altered Mental Status improving Sepsis UTI/Emphysematous Cystitis appears to be improving Acute Kidney Injury Hypercalcemia Lung Nodule suspicious for malignancy DM - complete antibiotics per ID - monitor urine output, creatinine - monitor calcium, may need to restart calcitonin - oncology f/u - lung nodule may not be related to appendiceal carcinoma. Depending on patient's GOC, may warrant tissue diagnosis unless conservative measures are pursued. - PO as tolerated - aspiration precautions - DVT prophylaxis Dr Patterson
[2018-12-13] MEDS: MORPHINE SULFATE 2 MG/ML VIAL IVPUSH PRN (18:59)
[2018-12-13] MEDS: MELATONIN 5 MG TABLETS PO PRN (21:44)
[2018-12-13] MEDS: oxyCODONE HCL 5 MG TABLET PO PRN (21:46)
[2018-12-13] MEDS: INSULIN (LEVEMIR) 100 UNITS/ML UNITS SQ SCH (21:46)
[2018-12-14] MEDS: MORPHINE SULFATE 2 MG/ML VIAL IVPUSH PRN ×5 (02:22→22:23)
[2018-12-14] MEDS: oxyCODONE HCL 5 MG TABLET PO PRN (05:06)
[2018-12-14] MEDS: HEPARIN NA (PORCINE) 5,000 UNITS/ML 1ML VIAL SQ SCH ×3 (05:07→21:42)
[2018-12-14] MEDS: INSULIN SLIDING SCALE (NOVOLOG) 1 VIAL SQ SCH ×2 (06:17→16:41)
[2018-12-14] MEDS ORDERED: INSULIN (NOVOLOG) ASPART 100 UNITS/ML 10ML VIAL ONE (08:44)
[2018-12-14] MEDS ORDERED: FENTANYL PATCH WASTE MC PRN (10:17)
--- NOTE | 2018-12-14 10:19 | PN ---
Progress Note (short form) - Note Progress Note: pt seen/ examined. overall condition same anxious pain under control nurse requesting another patch of Duragesic as previous lost Vital Signs Temp 97.6 F 12/14/18 08:40 Pulse 82 12/14/18 08:40 Resp 18 12/14/18 08:40 BP 155/75 12/14/18 08:40 Pulse Ox 93 L 12/13/18 20:32 Intake & Output 12/13/18 12/13/18 12/14/18 11:59 23:59 11:59 Intake Total 20 100 Output Total 420 450 200 Balance -400 -350 -200 Intake: Oral 20 100 Output: Urine 420 450 200 Gregg 420 450 200 Other: Voiding Method Indwelling Catheter Indwelling Catheter Indwelling Catheter Bowel Movement No No Body Mass Index (BMI) 26.5 Active Medications Albuterol Sulfate (Ventolin 0.083% Nebulizer Soln -) 1 amp NEB Q6H PRN PRN Reason: SHORT OF BREATH/WHEEZING Last Admin: 12/13/18 07:37 Dose: 1 amp Fentanyl (Duragesic 25mcg Patch -) 1 patch TD Q72H [facility] Stop: 12/20/18 11:59 Last Admin: 12/13/18 15:18 Dose: 1 patch Fentanyl (Duragesic 25mcg Patch -) 1 patch TD Q72H [facility] Stop: 12/21/18 10:17 CBC, BMP 12/12/18 08:15 12/12/18 08:15 Heparin Sodium (Porcine) (Heparin -) 5,000 unit SQ TID [facility] Last Admin: 12/14/18 05:07 Dose: 5,000 unit Ibuprofen (Motrin -) 600 mg PO Q8H PRN PRN Reason: PAIN LEVEL 1-5 Last Admin: 12/12/18 22:01 Dose: 600 mg Insulin Aspart (Novolog Vial Sliding Scale -) 1 vial SQ BIDAC [facility]; Protocol Last Admin: 12/14/18 06:17 Dose: 4 units Insulin Detemir (Levemir Vial) 16 units SQ HS [facility] Last Admin: 12/13/18 21:46 Dose: Not Given Melatonin (Melatonin) 5 mg PO HS PRN PRN Reason: INSOMNIA Last Admin: 12/13/18 21:44 Dose: 5 mg Miscellaneous (Duragesic Patch Waste) 1 each TD PRN PRN PRN Reason: PAIN Last Admin: 12/14/18 09:00 Dose: 1 each Miscellaneous (Duragesic Patch Waste) 1 each MC PRN PRN PRN Reason: PAIN Morphine Sulfate (Morphine Sulfate) 1 mg IVPUSH Q6H PRN PRN Reason: PAIN LEVEL 6-10 Last Admin: 12/14/18 08:48 Dose: 1 mg Oxycodone HCl (Roxicodone -) 5 mg PO Q6H PRN PRN Reason: PAIN LEVEL 1-5 Last Admin: 12/14/18 05:06 Dose: 5 mg Polyethylene Glycol (Miralax (For Daily Use) -) 17 gm PO BID [facility] Last Admin: 12/13/18 21:46 Dose: 17 gm Physical Exam. awake/ confused S1 S2 RRR Lungs decreased Abd- soft,NT PLAN Metastatic Neuroendocrine tumor. Pain control no further blood tests/ treatment hospice care-- [facility] will follow Problem List - Problems (1) Hypercalcemia Code(s): E83.52 - HYPERCALCEMIA (2) Altered mental status Code(s): R41.82 - ALTERED MENTAL STATUS, UNSPECIFIED Qualifiers: Altered mental status type: unspecified Qualified Code(s): R41.82 - Altered mental status, unspecified (3) Diabetes Code(s): E11.9 - TYPE 2 DIABETES MELLITUS WITHOUT COMPLICATIONS (4) Leukocytosis Code(s): D72.829 - ELEVATED WHITE BLOOD CELL COUNT, UNSPECIFIED Qualifiers: Leukocytosis type: unspecified Qualified Code(s): D72.829 - Elevated white blood cell count, unspecified (5) MARÍA (acute kidney injury) Code(s): N17.9 - ACUTE KIDNEY FAILURE, UNSPECIFIED (6) Lung mass Code(s): R91.8 - OTHER NONSPECIFIC ABNORMAL FINDING OF LUNG FIELD (7) Toxic metabolic encephalopathy Code(s): G92 - TOXIC ENCEPHALOPATHY
[2018-12-14] MEDS ORDERED: fentaNYL 25mcg/hr PATCH.TD72 TD SCH (10:30)
[2018-12-14] MEDS: POLYETHYLENE GLYCOL 3350 119 GM BTL PO SCH ×2 (10:46→21:43)
--- NOTE | 2018-12-14 11:02 | PN ---
Progress Note (short form) - Note Progress Note: Denies CP or SOB. Afebrile. No acute events overnight. Intake & Output 12/11/18 12/12/18 12/13/18 12/14/18 23:59 23:59 23:59 23:59 Intake Total 1440 400 120 Output Total 2500 1400 870 200 Balance -1060 -1000 -750 -200 Last Vital Signs Temp Pulse Resp BP Pulse Ox 97.6 F 82 18 155/75 93 L 12/14/18 08:40 12/14/18 08:40 12/14/18 08:40 12/14/18 08:40 12/13/18 20:32 Active Medications Albuterol Sulfate (Ventolin 0.083% Nebulizer Soln -) 1 amp NEB Q6H PRN PRN Reason: SHORT OF BREATH/WHEEZING Last Admin: 12/13/18 07:37 Dose: 1 amp Fentanyl (Duragesic 25mcg Patch -) 1 patch TD Q72H [facility] Stop: 12/20/18 11:59 Last Admin: 12/13/18 15:18 Dose: 1 patch Fentanyl (Duragesic 25mcg Patch -) 1 patch TD Q72H [facility] Stop: 12/21/18 10:17 Last Admin: 12/14/18 10:45 Dose: 1 patch Heparin Sodium (Porcine) (Heparin -) 5,000 unit SQ TID [facility] Last Admin: 12/14/18 05:07 Dose: 5,000 unit Ibuprofen (Motrin -) 600 mg PO Q8H PRN PRN Reason: PAIN LEVEL 1-5 Last Admin: 12/12/18 22:01 Dose: 600 mg Insulin Aspart (Novolog Vial Sliding Scale -) 1 vial SQ BIDAC [facility]; Protocol Last Admin: 12/14/18 06:17 Dose: 4 units Insulin Detemir (Levemir Vial) 16 units SQ HS [facility] Last Admin: 12/13/18 21:46 Dose: Not Given Melatonin (Melatonin) 5 mg PO HS PRN PRN Reason: INSOMNIA Last Admin: 12/13/18 21:44 Dose: 5 mg Miscellaneous (Duragesic Patch Waste) 1 each TD PRN PRN PRN Reason: PAIN Last Admin: 12/14/18 09:00 Dose: 1 each Miscellaneous (Duragesic Patch Waste) 1 each MC PRN PRN PRN Reason: PAIN Morphine Sulfate (Morphine Sulfate) 1 mg IVPUSH Q6H PRN PRN Reason: PAIN LEVEL 6-10 Last Admin: 12/14/18 08:48 Dose: 1 mg Oxycodone HCl (Roxicodone -) 5 mg PO Q6H PRN PRN Reason: PAIN LEVEL 1-5 Last Admin: 12/14/18 05:06 Dose: 5 mg Polyethylene Glycol (Miralax (For Daily Use) -) 17 gm PO BID [facility] Last Admin: 12/14/18 10:46 Dose: Not Given Gen: NAD at rest Heart: RRR Lung: decreased breath sounds at the bases Abd: soft, nontender Ext: no edema Laboratory Results - last 24 hr 12/13/18 12/13/18 12/14/18 05:48 21:45 05:08 POC Glucometer 170 178 228 A/P Metastatic Appendiceal Carcinoma Altered Mental Status improving Sepsis UTI/Emphysematous Cystitis appears to be improving Acute Kidney Injury Hypercalcemia Lung Nodule suspicious for malignancy DM - complete antibiotics per ID - lung nodule may not be related to appendiceal carcinoma. Depending on patient's GOC, may warrant tissue diagnosis unless conservative measures are pursued. - PO as tolerated - aspiration precautions - DVT prophylaxis Dr Patterson
[2018-12-14] MEDS: diphenhydrAMINE HCL 25 MG CAPSULE (FP) PO PRN ×2 (13:01→21:49)
[2018-12-14] MEDS: INSULIN (LEVEMIR) 100 UNITS/ML UNITS SQ SCH (21:43)
[2018-12-15] MEDS: INSULIN SLIDING SCALE (NOVOLOG) 1 VIAL SQ SCH ×2 (06:21→16:36)
[2018-12-15] MEDS: diphenhydrAMINE HCL 25 MG CAPSULE (FP) PO PRN (06:21)
[2018-12-15] MEDS: HEPARIN NA (PORCINE) 5,000 UNITS/ML 1ML VIAL SQ SCH ×3 (06:22→21:18)
[2018-12-15] MEDS: MORPHINE SULFATE 2 MG/ML VIAL IVPUSH PRN ×2 (06:29→10:58)
--- NOTE | 2018-12-15 10:51 | PN ---
Progress Note (short form) - Note Progress Note: Resting in NAD. Afebrile. No acute events overnight. Intake & Output 12/12/18 12/13/18 12/14/18 12/15/18 23:59 23:59 23:59 23:59 Intake Total 400 120 0 Output Total 1400 870 700 150 Balance -1000 -750 -700 -150 Last Vital Signs Temp Pulse Resp BP Pulse Ox 97.5 F L 109 H 20 119/64 97 12/15/18 08:10 12/15/18 08:10 12/15/18 09:00 12/15/18 08:10 12/15/18 09:00 Active Medications Albuterol Sulfate (Ventolin 0.083% Nebulizer Soln -) 1 amp NEB Q6H PRN PRN Reason: SHORT OF BREATH/WHEEZING Diphenhydramine HCl (Benadryl -) 25 mg PO Q6H PRN PRN Reason: ITCHING Last Admin: 12/15/18 06:21 Dose: 25 mg Fentanyl (Duragesic 25mcg Patch -) 1 patch TD Q72H [facility] Stop: 12/21/18 10:17 Last Admin: 12/14/18 10:45 Dose: 1 patch Heparin Sodium (Porcine) (Heparin -) 5,000 unit SQ TID [facility] Last Admin: 12/15/18 06:22 Dose: 5,000 unit Ibuprofen (Motrin -) 600 mg PO Q8H PRN PRN Reason: PAIN LEVEL 1-5 Last Admin: 12/12/18 22:01 Dose: 600 mg Insulin Aspart (Novolog Vial Sliding Scale -) 1 vial SQ BIDAC [facility]; Protocol Last Admin: 12/15/18 06:21 Dose: 4 units Insulin Detemir (Levemir Vial) 16 units SQ HS [facility] Last Admin: 12/14/18 21:43 Dose: Not Given Melatonin (Melatonin) 5 mg PO HS PRN PRN Reason: INSOMNIA Last Admin: 12/13/18 21:44 Dose: 5 mg Miscellaneous (Duragesic Patch Waste) 1 each MC PRN PRN PRN Reason: PAIN Morphine Sulfate (Morphine Sulfate) 2 mg IVPUSH Q4H PRN PRN Reason: PAIN LEVEL 6-10 Last Admin: 12/15/18 06:29 Dose: 2 mg Oxycodone HCl (Roxicodone -) 5 mg PO Q6H PRN PRN Reason: PAIN LEVEL 1-5 Last Admin: 12/14/18 05:06 Dose: 5 mg Polyethylene Glycol (Miralax (For Daily Use) -) 17 gm PO BID [facility] Last Admin: 12/14/18 21:43 Dose: Not Given Gen: NAD at rest Heart: RRR Lung: decreased breath sounds at the bases Abd: soft, nontender Ext: no edema Laboratory Results - last 24 hr 12/15/18 05:27 POC Glucometer 249 A/P Metastatic Appendiceal Carcinoma Altered Mental Status improving Sepsis UTI/Emphysematous Cystitis appears to be improving Acute Kidney Injury Hypercalcemia Lung Nodule suspicious for malignancy DM - complete antibiotics per ID - lung nodule may not be related to appendiceal carcinoma. Depending on patient's GOC, may warrant tissue diagnosis unless conservative measures are pursued. - PO as tolerated - aspiration precautions - DVT prophylaxis Dr Patterson
[2018-12-15] MEDS: POLYETHYLENE GLYCOL 3350 119 GM BTL PO SCH ×2 (10:55→21:17)
--- NOTE | 2018-12-15 11:28 | PN ---
Progress Note (short form) - Note Progress Note: pt seen/ examined chart reviewed confused/ agitated. Vital Signs Temp 97.5 F L 12/15/18 08:10 Pulse 109 H 12/15/18 08:10 Resp 20 12/15/18 09:00 BP 119/64 12/15/18 08:10 Pulse Ox 97 12/15/18 09:00 Intake & Output 12/14/18 12/14/18 12/15/18 11:59 23:59 11:59 Intake Total 0 Output Total 200 500 150 Balance -200 -500 -150 Intake: Oral 0 Output: Urine 200 500 150 Gregg 200 500 150 Other: Voiding Method Indwelling Catheter Indwelling Catheter Indwelling Catheter Bowel Movement No No No Active Medications Albuterol Sulfate (Ventolin 0.083% Nebulizer Soln -) 1 amp NEB Q6H PRN PRN Reason: SHORT OF BREATH/WHEEZING Diphenhydramine HCl (Benadryl -) 25 mg PO Q6H PRN PRN Reason: ITCHING Last Admin: 12/15/18 06:21 Dose: 25 mg Fentanyl (Duragesic 25mcg Patch -) 1 patch TD Q72H [facility] Stop: 12/21/18 10:17 Last Admin: 12/14/18 10:45 Dose: 1 patch Heparin Sodium (Porcine) (Heparin -) 5,000 unit SQ TID [facility] Last Admin: 12/15/18 06:22 Dose: 5,000 unit Ibuprofen (Motrin -) 600 mg PO Q8H PRN PRN Reason: PAIN LEVEL 1-5 Last Admin: 12/12/18 22:01 Dose: 600 mg Insulin Aspart (Novolog Vial Sliding Scale -) 1 vial SQ BIDAC [facility]; Protocol Last Admin: 12/15/18 06:21 Dose: 4 units Insulin Detemir (Levemir Vial) 16 units SQ HS [facility] Last Admin: 12/14/18 21:43 Dose: Not Given Lorazepam (Ativan Injection -) 1 mg IVPUSH Q6H PRN PRN Reason: ANXIETY Melatonin (Melatonin) 5 mg PO HS PRN PRN Reason: INSOMNIA Last Admin: 12/13/18 21:44 Dose: 5 mg Miscellaneous (Duragesic Patch Waste) 1 each MC PRN PRN PRN Reason: PAIN Morphine Sulfate (Morphine Sulfate) 2 mg IVPUSH Q4H PRN PRN Reason: PAIN LEVEL 6-10 Last Admin: 12/15/18 10:58 Dose: 2 mg Oxycodone HCl (Roxicodone -) 5 mg PO Q6H PRN PRN Reason: PAIN LEVEL 1-5 Last Admin: 12/14/18 05:06 Dose: 5 mg Polyethylene Glycol (Miralax (For Daily Use) -) 17 gm PO BID [facility] Last Admin: 12/15/18 10:55 Dose: Not Given CBC, BMP 12/12/18 08:15 12/12/18 08:15 Physical Exam. awake/ confused/ agitated S1 S2 RRR Lungs decreased Abd- soft,NT PLAN Metastatic Neuroendocrine tumor. Pain control no further blood tests/ treatment [facility] not eating also will start on mild hydration. will follow Problem List - Problems (1) Hypercalcemia Code(s): E83.52 - HYPERCALCEMIA (2) Altered mental status Code(s): R41.82 - ALTERED MENTAL STATUS, UNSPECIFIED Qualifiers: Altered mental status type: unspecified Qualified Code(s): R41.82 - Altered mental status, unspecified (3) Diabetes Code(s): E11.9 - TYPE 2 DIABETES MELLITUS WITHOUT COMPLICATIONS (4) Leukocytosis Code(s): D72.829 - ELEVATED WHITE BLOOD CELL COUNT, UNSPECIFIED Qualifiers: Leukocytosis type: unspecified Qualified Code(s): D72.829 - Elevated white blood cell count, unspecified (5) MARÍA (acute kidney injury) Code(s): N17.9 - ACUTE KIDNEY FAILURE, UNSPECIFIED (6) Lung mass Code(s): R91.8 - OTHER NONSPECIFIC ABNORMAL FINDING OF LUNG FIELD (7) Toxic metabolic encephalopathy Code(s): G92 - TOXIC ENCEPHALOPATHY
[2018-12-15] MEDS ORDERED: D5-1/2NS+20 MEQ KCL - 20 MEQ/1,000 ML INFUS.BAG IV SCH (11:45)
[2018-12-15] MEDS: LORazepam 2 MG/ML SDV VIAL IVPUSH PRN (13:23)
[2018-12-15] MEDS: INSULIN (LEVEMIR) 100 UNITS/ML UNITS SQ SCH (21:17)
[2018-12-15] MEDS ORDERED: ACETAMINOPHEN 650 MG SUPP.RECT PR ONE (21:20)
[2018-12-16] MEDS: LORazepam 2 MG/ML SDV VIAL IVPUSH PRN ×2 (01:13→11:54)
[2018-12-16] MEDS: HEPARIN NA (PORCINE) 5,000 UNITS/ML 1ML VIAL SQ SCH (06:48)
[2018-12-16] MEDS: MORPHINE SULFATE 2 MG/ML VIAL IVPUSH PRN (06:52)
[2018-12-16] MEDS: INSULIN SLIDING SCALE (NOVOLOG) 1 VIAL SQ SCH ×2 (06:56→16:41)
[2018-12-16] MEDS: ALBUTEROL SO4 0.083% IH SOL 2.5 MG/3 ML VIAL.NEB. NEB PRN (07:20)
[2018-12-16] MEDS: POLYETHYLENE GLYCOL 3350 119 GM BTL PO SCH ×2 (09:03→23:09)
--- NOTE | 2018-12-16 10:32 | PN ---
Progress Note (short form) - Note Progress Note: comfortable confused family do not want IV fluids only comfort care discomfort/pain at times Vital Signs Temp 98.7 F 12/16/18 10:00 Pulse 98 H 12/16/18 10:00 Resp 18 12/16/18 10:00 BP 145/65 12/16/18 10:00 Pulse Ox 98 12/16/18 09:00 Intake & Output 12/15/18 12/15/18 12/16/18 11:59 23:59 11:59 Intake Total 330 0 Output Total 150 200 300 Balance -150 130 -300 Intake: IV 330 0 D5-1/2NS+20 MEQ KCL - 20 330 meq In 1,000 ml @ 83 mls/ hr IV ASDIR [facility] Rx#: [id number] saline lock 0 Oral 0 0 Output: Urine 150 200 300 Gregg 150 200 300 Other: Voiding Method Indwelling Catheter Indwelling Catheter Indwelling Catheter Bowel Movement No No No Active Medications Albuterol Sulfate (Ventolin 0.083% Nebulizer Soln -) 1 amp NEB Q6H PRN PRN Reason: SHORT OF BREATH/WHEEZING Last Admin: 12/16/18 07:20 Dose: 1 amp Diphenhydramine HCl (Benadryl -) 25 mg PO Q6H PRN PRN Reason: ITCHING Last Admin: 12/15/18 06:21 Dose: 25 mg Fentanyl (Duragesic 25mcg Patch -) 1 patch TD Q72H [facility] Stop: 12/21/18 10:17 Last Admin: 12/14/18 10:45 Dose: 1 patch Insulin Aspart (Novolog Vial Sliding Scale -) 1 vial SQ BIDAC [facility]; Protocol Last Admin: 12/16/18 06:56 Dose: Not Given Lorazepam (Ativan Injection -) 1 mg IVPUSH Q6H PRN PRN Reason: ANXIETY Last Admin: 12/16/18 01:13 Dose: 1 mg Morphine Sulfate (Morphine Sulfate) 2 mg IVPUSH Q4H PRN PRN Reason: PAIN LEVEL 6-10 Last Admin: 12/16/18 06:52 Dose: 2 mg Oxycodone HCl (Roxicodone -) 5 mg PO Q6H PRN PRN Reason: PAIN LEVEL 1-5 Last Admin: 12/14/18 05:06 Dose: 5 mg Polyethylene Glycol (Miralax (For Daily Use) -) 17 gm PO BID [facility] Last Admin: 12/16/18 09:03 Dose: Not Given CBC, BMP 12/12/18 08:15 12/12/18 08:15 Physical Exam. at present sleeping=== got Ativan S1 S2 RRR Lungs decreased Abd- soft,NT PLAN Metastatic Neuroendocrine tumor. Pain control---Will place on morphine drip no further blood tests/ treatment ativan for agitation comfort care only d/c heparin/ melatonin/ other meds awaiting bed - hospice. discussed with nursing staff also Problem List - Problems (1) Hypercalcemia Code(s): E83.52 - HYPERCALCEMIA (2) Altered mental status Code(s): R41.82 - ALTERED MENTAL STATUS, UNSPECIFIED Qualifiers: Altered mental status type: unspecified Qualified Code(s): R41.82 - Altered mental status, unspecified (3) Diabetes Code(s): E11.9 - TYPE 2 DIABETES MELLITUS WITHOUT COMPLICATIONS (4) Leukocytosis Code(s): D72.829 - ELEVATED WHITE BLOOD CELL COUNT, UNSPECIFIED Qualifiers: Leukocytosis type: unspecified Qualified Code(s): D72.829 - Elevated white blood cell count, unspecified (5) MARÍA (acute kidney injury) Code(s): N17.9 - ACUTE KIDNEY FAILURE, UNSPECIFIED (6) Lung mass Code(s): R91.8 - OTHER NONSPECIFIC ABNORMAL FINDING OF LUNG FIELD (7) Toxic metabolic encephalopathy Code(s): G92 - TOXIC ENCEPHALOPATHY
--- NOTE | 2018-12-16 15:12 | PN ---
Progress Note, CYTOPATHOLOGY TECHNOLOGIST - Note Progress Note: Selected Entries 12/14/18 12/14/18 12/14/18 09:50 15:16 18:00 Breakfast 25% Lunch 25% Supper 0 Temperature 12/15/18 12/15/18 12/15/18 05:20 08:10 09:22 Breakfast 0 Lunch Supper Temperature 97.9 F 97.5 F L 12/15/18 12/15/18 12/15/18 14:31 18:00 21:00 Breakfast Lunch 0 Supper 0 Temperature 98.4 F 98.2 F 100.2 F H 12/15/18 12/15/18 12/16/18 22:59 23:40 05:55 Breakfast Lunch Supper 0 Temperature 99.3 F 99.2 F 12/16/18 12/16/18 12/16/18 10:00 10:03 13:48 Breakfast 0 Lunch 0 Supper Temperature 98.7 F Laboratory Tests 12/12/18 08:15 WBC 11.2 H Refused PO over weekend. Now drowsy. Pt now comfort care, pending hospice.
[2018-12-16] MEDS: MORPHINE 100 MG in SODIUM CHLORIDE 98 ML IVPB SCH (16:19)
[2018-12-17] MEDS: INSULIN SLIDING SCALE (NOVOLOG) 1 VIAL SQ SCH ×2 (06:34→17:59)
--- NOTE | 2018-12-17 11:20 | PN ---
Progress Note (short form) - Note Progress Note: Pt examined on Morphine drip comfortable no distress Vital Signs - 24 hr 12/16/18 12/16/18 12/16/18 15:19 21:00 22:00 Temperature 98.4 F 99 F Pulse Rate 103 H 100 H Respiratory 20 20 20 Rate Blood Pressure 147/68 118/61 O2 Sat by Pulse 98 Oximetry (%) 12/17/18 12/17/18 12/17/18 06:00 08:31 09:00 Temperature 98.6 F 98.6 F Pulse Rate 108 H 111 H Respiratory 20 20 20 Rate Blood Pressure 137/71 118/52 L O2 Sat by Pulse 96 Oximetry (%) Current Medications Generic Name Dose Route Start Last Admin Trade Name Freq PRN Reason Stop Dose Admin Albuterol Sulfate 1 amp 12/14/18 16:58 12/16/18 07:20 Ventolin 0.083% Nebulizer Soln - NEB 1 amp Q6H PRN Administration SHORT OF BREATH/WHEEZING Diphenhydramine HCl 12.5 mg 12/16/18 14:33 12/16/18 15:48 Benadryl Injection - IVPUSH 12.5 mg Q6H PRN Administration ITCHING Morphine Sulfate 100 mg/ 100 mls @ 1 mls/hr 12/16/18 13:00 12/16/18 18:33 Sodium Chloride IVPB 1.5 mg/hr TITR [facility] 1.5 mls/hr Titration Protocol 1 MG/HR Insulin Aspart 1 vial 12/07/18 07:00 12/17/18 06:34 Novolog Vial Sliding Scale - SQ Not Given BIDAC [facility] Protocol Lorazepam 1 mg 12/15/18 11:23 12/16/18 11:54 Ativan Injection - IVPUSH 1 mg Q6H PRN Administration ANXIETY Polyethylene Glycol 17 gm 12/12/18 12:00 12/16/18 23:09 Miralax (For Daily Use) - PO Not Given BID [facility] S1 S2 RRR lungs-secretions+ Abd- soft, NT No edema PLAN O2 start scopolamine patch On Morphine Gtt hospice no labs,no iv fluids per family request Problem List - Problems (1) Altered mental status Code(s): R41.82 - ALTERED MENTAL STATUS, UNSPECIFIED Qualifiers: Altered mental status type: unspecified Qualified Code(s): R41.82 - Altered mental status, unspecified (2) CAD (coronary artery disease) Code(s): I25.10 - ATHSCL HEART DISEASE OF [place] CORONARY ARTERY W/O ANG PCTRS (3) Cognitive and neurobehavioral dysfunction Code(s): F09 - UNSP MENTAL DISORDER DUE TO KNOWN PHYSIOLOGICAL CONDITION; F07.89 - OTH PERSONALITY & BEHAVRL DISORD DUE TO KNOWN PHYSIOL COND (4) Diabetes Code(s): E11.9 - TYPE 2 DIABETES MELLITUS WITHOUT COMPLICATIONS (5) HLD (hyperlipidemia) Code(s): E78.5 - HYPERLIPIDEMIA, UNSPECIFIED (6) Hypercalcemia Code(s): E83.52 - HYPERCALCEMIA (7) Hypothyroidism Code(s): E03.9 - HYPOTHYROIDISM, UNSPECIFIED (8) Leukocytosis Code(s): D72.829 - ELEVATED WHITE BLOOD CELL COUNT, UNSPECIFIED Qualifiers: Leukocytosis type: unspecified Qualified Code(s): D72.829 - Elevated white blood cell count, unspecified (9) Emphysematous cystitis Code(s): N30.80 - OTHER CYSTITIS WITHOUT HEMATURIA (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
[2018-12-17] MEDS: POLYETHYLENE GLYCOL 3350 119 GM BTL PO SCH ×2 (11:52→22:48)
[2018-12-17] MEDS: SCOPOLAMINE HYDROBROMIDE 1 PATCH PATCH.TD72 TD SCH (12:24)
[2018-12-17] MEDS: MORPHINE 100 MG in SODIUM CHLORIDE 98 ML IVPB SCH (17:53)
[2018-12-17] MEDS: ALBUTEROL SO4 0.083% IH SOL 2.5 MG/3 ML VIAL.NEB. NEB PRN (20:09)
--- NOTE | 2018-12-17 20:43 | PN ---
Progress Note (short form) - Note Progress Note: NEUROLOGY PROGRESS: Events reviewed. 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 DNR, DNA status noted after discussion with sister. MRI of the brain (reviewed) does not show mets but shows atrophy and diffuse microvascular changes. No meningeal changes Now on morphine drip. No nuchal rigidity. Kernig's - Unresponsive to name and sternal pressure. Pupils small (2 mm) but reactive to light. No response to visual threat. Full EOM's to doll's head. Corneals +/+ Myoclonic jerks in arms and legs. Depressed reflexes. IMP: Non-focal exam with severe B/L cerebral dysfunction. Signs of Narcosis/ Toxic-metabolic encephalopathy. SUGGEST: Supportive/comfort care Thank you very much, Chance Roman MD
[2018-12-18] MEDS ORDERED: ACETAMINOPHEN 650 MG SUPP.RECT PR ONE (06:05)
[2018-12-18] MEDS: INSULIN SLIDING SCALE (NOVOLOG) 1 VIAL SQ SCH ×2 (06:09→16:55)
[2018-12-18] MEDS: POLYETHYLENE GLYCOL 3350 119 GM BTL PO SCH (10:36)
--- NOTE | 2018-12-18 11:05 | PN ---
Progress Note (short form) - Note Progress Note: Pt examined on Morphine drip comfortable no distress temp elevated today Vital Signs - 24 hr 12/17/18 12/18/18 18:00 06:00 Temperature 98.6 F 103.1 F H Pulse Rate 115 H 125 H Respiratory 20 20 Rate Blood Pressure 127/68 127/61 Current Medications Generic Name Dose Route Start Last Admin Trade Name Freq PRN Reason Stop Dose Admin Albuterol Sulfate 1 amp 12/14/18 16:58 12/17/18 20:09 Ventolin 0.083% Nebulizer Soln - NEB 1 amp Q6H PRN Administration SHORT OF BREATH/WHEEZING Diphenhydramine HCl 12.5 mg 12/16/18 14:33 12/16/18 15:48 Benadryl Injection - IVPUSH 12.5 mg Q6H PRN Administration ITCHING Morphine Sulfate 100 mg/ 100 mls @ 1 mls/hr 12/16/18 13:00 12/17/18 17:53 Sodium Chloride IVPB 1.5 mg/hr TITR [facility] 1.5 mls/hr Administration Protocol 1 MG/HR Insulin Aspart 1 vial 12/07/18 07:00 12/18/18 06:09 Novolog Vial Sliding Scale - SQ Not Given [facility]AC [facility] Protocol Lorazepam 1 mg 12/15/18 11:23 12/16/18 11:54 Ativan Injection - IVPUSH 1 mg Q6H PRN Administration ANXIETY Polyethylene Glycol 17 gm 12/12/18 12:00 12/18/18 10:36 Miralax (For Daily Use) - PO Not Given BID [facility] Scopolamine HBr 1 patch 12/17/18 12:00 12/17/18 12:24 Transderm-Scop - TD 1 patch Q72H [facility] Administration S1 S2 RRR lungs-secretions+decreased Abd- soft, NT No edema PLAN O2 tylenol suppository prn scopolamine patch On Morphine Gtt hospice no labs,no iv fluids per family request Problem List - Problems (1) Altered mental status Code(s): R41.82 - ALTERED MENTAL STATUS, UNSPECIFIED Qualifiers: Altered mental status type: unspecified Qualified Code(s): R41.82 - Altered mental status, unspecified (2) CAD (coronary artery disease) Code(s): I25.10 - ATHSCL HEART DISEASE OF [place] CORONARY ARTERY W/O ANG PCTRS (3) Cognitive and neurobehavioral dysfunction Code(s): F09 - UNSP MENTAL DISORDER DUE TO KNOWN PHYSIOLOGICAL CONDITION; F07.89 - OTH PERSONALITY & BEHAVRL DISORD DUE TO KNOWN PHYSIOL COND (4) Diabetes Code(s): E11.9 - TYPE 2 DIABETES MELLITUS WITHOUT COMPLICATIONS (5) HLD (hyperlipidemia) Code(s): E78.5 - HYPERLIPIDEMIA, UNSPECIFIED (6) Hypercalcemia Code(s): E83.52 - HYPERCALCEMIA (7) Hypothyroidism Code(s): E03.9 - HYPOTHYROIDISM, UNSPECIFIED (8) Leukocytosis Code(s): D72.829 - ELEVATED WHITE BLOOD CELL COUNT, UNSPECIFIED Qualifiers: Leukocytosis type: unspecified Qualified Code(s): D72.829 - Elevated white blood cell count, unspecified (9) Emphysematous cystitis Code(s): N30.80 - OTHER CYSTITIS WITHOUT HEMATURIA (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
[2018-12-18] MEDS ORDERED: ACETAMINOPHEN 650 MG SUPP.RECT PR PRN (11:06)
[2018-12-18] MEDS: IBUPROFEN 800 MG/8 ML IJ IVPB PRN (11:40)
[2018-12-18] MEDS: MORPHINE 100 MG in SODIUM CHLORIDE 98 ML IVPB SCH (17:59)
--- NOTE | 2018-12-18 18:59 | PN ---
Progress Note (short form) - Note Progress Note: Patient seen Faimly at bedside Comfortable sedated On MS drip. DNR renewed
[2018-12-18] MEDS: ALBUTEROL SO4 0.083% IH SOL 2.5 MG/3 ML VIAL.NEB. NEB PRN (20:12)
[2018-12-19] MEDS: INSULIN SLIDING SCALE (NOVOLOG) 1 VIAL SQ SCH ×2 (06:31→17:31)
--- NOTE | 2018-12-19 10:43 | PN ---
Progress Note (short form) - Note Progress Note: Pt examined on Morphine drip comfortable no distress temp -low grade family at bedside breathing more shallow Vital Signs - 24 hr 12/18/18 12/18/18 12/18/18 13:30 18:00 18:41 Temperature 101 F H 98.9 F 99 F Pulse Rate Respiratory 18 Rate Blood Pressure 111/55 L 12/18/18 12/18/18 12/19/18 21:00 22:00 06:00 Temperature 99.1 F 100.9 F H Pulse Rate 112 H Respiratory 18 14 14 Rate Blood Pressure 100/52 L 127/64 Current Medications Generic Name Dose Route Start Last Admin Trade Name Freq PRN Reason Stop Dose Admin Acetaminophen 650 mg 12/18/18 11:06 12/18/18 10:55 Tylenol Suppository - [place] 650 mg Q4H PRN Administration FEVER Albuterol Sulfate 1 amp 12/14/18 16:58 12/18/18 20:12 Ventolin 0.083% Nebulizer Soln - NEB 1 amp Q6H PRN Administration SHORT OF BREATH/WHEEZING Diphenhydramine HCl 12.5 mg 12/16/18 14:33 12/16/18 15:48 Benadryl Injection - IVPUSH 12.5 mg Q6H PRN Administration ITCHING Morphine Sulfate 100 mg/ 100 mls @ 1 mls/hr 12/16/18 13:00 12/18/18 20:40 Sodium Chloride IVPB 2 mg/hr TITR NICHOLAS 2 mls/hr Titration Protocol 1 MG/HR Ibuprofen 600 mg 12/18/18 11:32 12/18/18 11:40 Caldolor Injection - IVPB 600 mg Q4H PRN Administration FEVER-If Po not effective Insulin Aspart 1 vial 12/07/18 07:00 12/19/18 06:31 Novolog Vial Sliding Scale - SQ Not Given BIDAC NICHOLAS Protocol Lorazepam 1 mg 12/15/18 11:23 12/16/18 11:54 Ativan Injection - IVPUSH 1 mg Q6H PRN Administration ANXIETY Scopolamine HBr 1 patch 12/17/18 12:00 12/17/18 12:24 Transderm-Scop - TD 1 patch Q72H NICHOLAS Administration S1 S2 RRR lungs-secretions+decreased Abd- soft, NT No edema PLAN O2 iv ibuprofen prn scopolamine patch artificial tears prn On Morphine [facility] hospice no labs,no iv fluids per family request No need for transfer to [place] at this point as is imminent Problem List - Problems (1) Altered mental status Code(s): R41.82 - ALTERED MENTAL STATUS, UNSPECIFIED Qualifiers: Altered mental status type: unspecified Qualified Code(s): R41.82 - Altered mental status, unspecified (2) CAD (coronary artery disease) Code(s): I25.10 - ATHSCL HEART DISEASE OF [place] CORONARY ARTERY W/O ANG PCTRS (3) Cognitive and neurobehavioral dysfunction Code(s): F09 - UNSP MENTAL DISORDER DUE TO KNOWN PHYSIOLOGICAL CONDITION; F07.89 - OTH PERSONALITY & BEHAVRL DISORD DUE TO KNOWN PHYSIOL COND (4) Diabetes Code(s): E11.9 - TYPE 2 DIABETES MELLITUS WITHOUT COMPLICATIONS (5) HLD (hyperlipidemia) Code(s): E78.5 - HYPERLIPIDEMIA, UNSPECIFIED (6) Hypercalcemia Code(s): E83.52 - HYPERCALCEMIA (7) Hypothyroidism Code(s): E03.9 - HYPOTHYROIDISM, UNSPECIFIED (8) Leukocytosis Code(s): D72.829 - ELEVATED WHITE BLOOD CELL COUNT, UNSPECIFIED Qualifiers: Leukocytosis type: unspecified Qualified Code(s): D72.829 - Elevated white blood cell count, unspecified (9) Emphysematous cystitis Code(s): N30.80 - OTHER CYSTITIS WITHOUT HEMATURIA (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
[2018-12-19] MEDS ORDERED: ARTIFICIAL TEARS (POLYVINYL ALCOHOL) OPTH DROPS OU PRN (11:11)
[2018-12-19] MEDS: IBUPROFEN 800 MG/8 ML IJ IVPB PRN (12:43)
[2018-12-20] MEDS: INSULIN SLIDING SCALE (NOVOLOG) 1 VIAL SQ SCH (06:25)
[2018-12-20] MEDS: MORPHINE 100 MG in SODIUM CHLORIDE 98 ML IVPB SCH ×2 (06:26→16:24)
--- NOTE | 2018-12-20 09:55 | PN ---
Progress Note (short form) - Note Progress Note: pt seen/ examined comfortable on morphine drip minimally responsive Vital Signs Temp 98.1 F 12/19/18 18:00 Pulse 113 H 12/19/18 18:00 Resp 16 12/19/18 21:00 BP 97/53 L 12/19/18 18:00 Pulse Ox 96 12/19/18 21:00 Intake & Output 12/19/18 12/19/18 12/20/18 11:59 23:59 11:59 Intake Total 16 0 23 Output Total 100 Balance 16 -100 23 Intake: IV 16 23 Morphine Sulfate 100 mg 16 23 In Normal Saline - 98 ml @ 1 MG/HR 1 mls/hr IVPB TITR NICHOLAS Rx#:[id number] Oral 0 0 Output: Urine 100 [place] 100 Other: Voiding Method Indwelling Catheter Indwelling Catheter Indwelling Catheter Active Medications Acetaminophen (Tylenol Suppository -) 650 mg ID Q4H PRN PRN Reason: FEVER Last Admin: 12/18/18 10:55 Dose: 650 mg Albuterol Sulfate (Ventolin 0.083% Nebulizer Soln -) 1 amp NEB Q6H PRN PRN Reason: SHORT OF BREATH/WHEEZING Last Admin: 12/18/18 20:12 Dose: 1 amp Artificial Tears (Artificial Tears) 1 drop OU BID PRN PRN Reason: DRY EYES Diphenhydramine HCl (Benadryl Injection -) 12.5 mg IVPUSH Q6H PRN PRN Reason: ITCHING Last Admin: 12/16/18 15:48 Dose: 12.5 mg Morphine Sulfate 100 mg/ (Sodium Chloride) 100 mls @ 1 mls/hr IVPB TITR NICHOLAS; Protocol Last Admin: 12/20/18 06:26 Dose: 2 mg/hr, 2 mls/hr Ibuprofen (Caldolor Injection -) 600 mg IVPB Q4H PRN PRN Reason: FEVER-If Po not effective Last Admin: 12/19/18 12:43 Dose: 600 mg Insulin Aspart (Novolog Vial Sliding Scale -) 1 vial SQ BIDAC NICHOLAS; Protocol Last Admin: 12/20/18 06:25 Dose: Not Given Lorazepam (Ativan Injection -) 1 mg IVPUSH Q6H PRN PRN Reason: ANXIETY Last Admin: 12/16/18 11:54 Dose: 1 mg Scopolamine HBr (Transderm-Scop -) 1 patch TD Q72H [facility] Last Admin: 12/17/18 12:24 Dose: 1 patch Physical Comfortable Minimally responsive. S1 S2 RRR lungs-diminshed Abd- soft, PLAN O2 iv ibuprofen prn scopolamine patch artificial tears prn On Morphine [facility]tt hospice Problem List - Problems (1) Hypercalcemia Code(s): E83.52 - HYPERCALCEMIA (2) Altered mental status Code(s): R41.82 - ALTERED MENTAL STATUS, UNSPECIFIED Qualifiers: Altered mental status type: unspecified Qualified Code(s): R41.82 - Altered mental status, unspecified (3) Diabetes Code(s): E11.9 - TYPE 2 DIABETES MELLITUS WITHOUT COMPLICATIONS (4) Leukocytosis Code(s): D72.829 - ELEVATED WHITE BLOOD CELL COUNT, UNSPECIFIED Qualifiers: Leukocytosis type: unspecified Qualified Code(s): D72.829 - Elevated white blood cell count, unspecified (5) MARÍA (acute kidney injury) Code(s): N17.9 - ACUTE KIDNEY FAILURE, UNSPECIFIED (6) Lung mass Code(s): R91.8 - OTHER NONSPECIFIC ABNORMAL FINDING OF LUNG FIELD (7) Toxic metabolic encephalopathy Code(s): G92 - TOXIC ENCEPHALOPATHY
[2018-12-20] MEDS: IBUPROFEN 800 MG/8 ML IJ IVPB PRN (11:54)
[2018-12-20] MEDS: SCOPOLAMINE HYDROBROMIDE 1 PATCH PATCH.TD72 TD SCH (12:23)
[2018-12-20] MEDS ORDERED: LORazepam 0.5 MG TABLET PO PRN (21:19)
[2018-12-21] MEDS: IBUPROFEN 800 MG/8 ML IJ IVPB PRN (01:27)
[2018-12-21] MEDS ORDERED: LORazepam 2 MG/ML SDV VIAL IVPUSH PRN (02:03)
[2018-12-21] MEDS: MORPHINE 100 MG in SODIUM CHLORIDE 98 ML IVPB SCH ×2 (07:27→15:46)
[2018-12-21 10:16] VITALS: BP 75/35
--- NOTE | 2018-12-21 13:24 | PN ---
Progress Note (short form) - Note Progress Note: Pt examined on Morphine drip comfortable no distress 2 Vital Signs - 24 hr 12/20/18 12/20/18 12/21/18 16:21 22:00 01:38 Temperature 100.4 F H 99.7 F H 100.6 F H Pulse Rate 97 H 89 94 H Respiratory 11 15 16 Rate Blood Pressure 67/39 L O2 Sat by Pulse Oximetry (%) 12/21/18 12/21/18 12/21/18 04:00 05:50 09:00 Temperature 99.7 F H 99.4 F Pulse Rate 104 H 89 Respiratory 14 14 Rate Blood Pressure 73/40 L O2 Sat by Pulse 92 L Oximetry (%) 12/21/18 10:00 Temperature 97.0 F L Pulse Rate 87 Respiratory 12 Rate Blood Pressure 75/35 L O2 Sat by Pulse Oximetry (%) Current Medications Generic Name Dose Route Start Last Admin Trade Name Freq PRN Reason Stop Dose Admin Acetaminophen 650 mg 12/18/18 11:06 12/18/18 10:55 Tylenol Suppository - [place] 650 mg Q4H PRN Administration FEVER Albuterol Sulfate 1 amp 12/14/18 16:58 12/18/18 20:12 Ventolin 0.083% Nebulizer Soln - NEB 1 amp Q6H PRN Administration SHORT OF BREATH/WHEEZING Artificial Tears 1 drop 12/19/18 11:11 12/20/18 11:54 Artificial Tears OU 1 drop BID PRN Administration DRY EYES Diphenhydramine HCl 12.5 mg 12/16/18 14:33 12/16/18 15:48 Benadryl Injection - IVPUSH 12.5 mg Q6H PRN Administration ITCHING Morphine Sulfate 100 mg/ 100 mls @ 1 mls/hr 12/16/18 13:00 12/21/18 07:27 Sodium Chloride IVPB 2 mg/hr TITR NICHOLAS 2 mls/hr Administration Protocol 1 MG/HR Ibuprofen 600 mg 12/18/18 11:32 12/21/18 01:27 Caldolor Injection - IVPB 600 mg Q4H PRN Administration FEVER-If Po not effective Lorazepam 0.5 mg 12/20/18 21:19 Ativan - PO 12/21/18 21:18 DAILY PRN ANXIETY Lorazepam 1 mg 12/21/18 02:03 Ativan Injection - IVPUSH Q6H PRN AGITATION Scopolamine HBr 1 patch 12/17/18 12:00 12/20/18 12:23 Transderm-Scop - TD 1 patch Q72H NICHOLAS Administration S1 S2 RRR lungs-secretions+decreased Abd- soft, NT No edema PLAN O2 iv ibuprofen prn scopolamine patch artificial tears prn On Morphine [facility]tt hospice maintain mcneil no labs,no iv fluids per family request Problem List - Problems (1) Altered mental status Code(s): R41.82 - ALTERED MENTAL STATUS, UNSPECIFIED Qualifiers: Altered mental status type: unspecified Qualified Code(s): R41.82 - Altered mental status, unspecified (2) CAD (coronary artery disease) Code(s): I25.10 - ATHSCL HEART DISEASE OF [place] CORONARY ARTERY W/O ANG PCTRS (3) Cognitive and neurobehavioral dysfunction Code(s): F09 - UNSP MENTAL DISORDER DUE TO KNOWN PHYSIOLOGICAL CONDITION; F07.89 - OTH PERSONALITY & BEHAVRL DISORD DUE TO KNOWN PHYSIOL COND (4) Diabetes Code(s): E11.9 - TYPE 2 DIABETES MELLITUS WITHOUT COMPLICATIONS (5) HLD (hyperlipidemia) Code(s): E78.5 - HYPERLIPIDEMIA, UNSPECIFIED (6) Hypercalcemia Code(s): E83.52 - HYPERCALCEMIA (7) Hypothyroidism Code(s): E03.9 - HYPOTHYROIDISM, UNSPECIFIED (8) Leukocytosis Code(s): D72.829 - ELEVATED WHITE BLOOD CELL COUNT, UNSPECIFIED Qualifiers: Leukocytosis type: unspecified Qualified Code(s): D72.829 - Elevated white blood cell count, unspecified (9) Emphysematous cystitis Code(s): N30.80 - OTHER CYSTITIS WITHOUT HEMATURIA (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
[2018-12-21 14:27] VITALS: PULSE 91; TEMP 98
--- NOTE | 2018-12-21 18:39 | HOSP ---
Subjective - Review of Symptoms Events since last encounter: COVERING PROVIDER NOTE: 73 yo female admitted with AMS in the setting of urosepsis, hemorrhagic emphysematous cystitis. 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 Pt made comfort care and was maintained on morphine drip, PRN ativan and scopolamine patch. At 5:45pm pt asystolic. On exam: pupils fixed and dilated and no reaction to light, no carotid pulse or heart sounds. HCP/Next of kin: Zohreh Becerril called at 6:06pm to inform her of patient's . At 6:10pm Dr. Rachael Acosta/Gustavo Jacinto's answering service called to notify them of the time of . Nursing staff will call [facility] to notify them of pt's passing. All necessary paper work completed and filed in paper chart. Physical Examination Vital Signs: Labs:
--- NOTE | 2018-12-22 16:52 | DS ---
Physical Examination Vital Signs: Vital Signs Temperature 98 F 12/21/18 14:25 Pulse Rate 91 H 12/21/18 14:25 Respiratory Rate 18 12/21/18 14:25 Blood Pressure 75/35 L 12/21/18 10:00 O2 Sat by Pulse Oximetry (%) 92 L 12/21/18 09:00 Labs: CBC, BMP 12/12/18 08:15 12/12/18 08:15 Discharge Summary Reason For Visit: LEUKOCYTOPENIA,ALTERED MENTAL STATUS Condition: - Instructions Referrals: Gustavo Jacinto MD [Primary Care Provider] - Disposition: - Home Medications Comprehensive Discharge Medication List: Ambulatory Orders Atenolol [Tenormin -] 50 mg PO DAILY 05/18/14 Glipizide [Glipizide ER] 5 mg PO DAILY 05/06/15 Albuterol 0.083% Nebulizer [place] [Ventolin 0.083% Nebulizer Soln -] 1 amp NEB Q6H PRN #30 amp 11/28/18 Heparin - 5,000 unit SQ BID #60 vial 11/28/18 Pramipexole Di-HCl [Mirapex] 0.5 mg PO TID #60 tablet 11/28/18 traMADol HCL [Ultram -] 50 mg PO Q6H PRN #30 tablet MDD 4 11/28/18 Acetaminophen 650 mg PO Q6H 12/01/18 Menthol [Beng[place] Ultra Strength] 1 each TP DAILY 12/01/18
== END 2018-12-21 19:15 | disposition expired | DRG 843 ==
LOC: JER 17:56 → SUPCPDRO 17:56 → JERBED 20:52 → J6S 12-02 02:56 → JICU 12-03 00:52 → J7W 12-05 17:11
PROVIDERS: ADMIT Internal Medicine; ATTEND Internal Medicine
PROC: 07DR3ZX Extraction of Iliac Bone Marrow, Percutaneous Approach, Diagnostic (ICD-10-PCS; principal; 2018-12-09)
DX: C7A.1 Malignant poorly differentiated neuroendocrine tumors (principal); A41.51 Sepsis due to Escherichia coli [E. coli]; G92 Toxic encephalopathy; N17.9 Acute kidney failure, unspecified; N39.0 Urinary tract infection, site not specified; E87.0 Hyperosmolality and hypernatremia; N13.30 Unspecified hydronephrosis; C79.51 Secondary malignant neoplasm of bone; N30.81 Other cystitis with hematuria; E83.52 Hypercalcemia; D72.829 Elevated white blood cell count, unspecified; I10 Essential (primary) hypertension; J44.9 Chronic obstructive pulmonary disease, unspecified; E11.9 Type 2 diabetes mellitus without complications; I25.10 Atherosclerotic heart disease of native coronary artery without angina pectoris; E83.42 Hypomagnesemia; R91.8 Other nonspecific abnormal finding of lung field; D72.819 Decreased white blood cell count, unspecified; R41.82 Altered mental status, unspecified; E78.5 Hyperlipidemia, unspecified; E03.9 Hypothyroidism, unspecified; D64.9 Anemia, unspecified; B96.20 Unspecified Escherichia coli [E. coli] as the cause of diseases classified elsewhere; R00.0 Tachycardia, unspecified
CPT/HCPCS: 20225; 36415; 36600; 70450-TC; 70551-TC; 71045-TC-FY; 74176-TC; 74230-TC-FY; 76098-TC-FY; 76380-TC; 76775-TC; 80048; 80053; 81003; 81015; 82140; 82378; 82803; 82962; 82977; 83605; 83735; 83970; 84100; 84443; 84484; 85025; 85610; 85651; 85730; 86304; 87040; 87086; 87186; 87804; 87899; 88305-TC; 88341-TC; 92611-GN; 93005; 93010; 94640; 97116-GP; 97161-GP; 99283-25; 99284-25; G0480; J0131; J1644; J3489; J7030; Q9967